=== PATIENT | female | born 1975 | race Caucasian/White ===

== ENCOUNTER 2019-12-11 08:50 | Outpatient (REF) | payer OTHER, SELFPAY ==
--- NOTE | 2019-12-11 | MM_ITS ---
EXAMINATION: MM SCREENING DIGITAL BREAST TOMOSYNTHESIS, BILATERAL CLINICAL INFORMATION: Screening. Asymptomatic. The lifetime risk of breast cancer based on the Tyrer-Cuzick Model is 8%. COMPARISON: Mammography: 12/08/2018, 12/06/2017, 04/27/2016 TECHNIQUE: Digital breast tomosynthesis is performed in both the craniocaudal and mediolateral oblique views along with computer-aided detection (CAD). Synthesized 2D images are generated from the tomosynthesis. Additional exaggerated right CC view is provided. FINDINGS: The breasts are heterogeneously dense, which may obscure small masses (ACR BI-RADS breast composition Category c). There are no significant masses, abnormal calcifications, or other abnormalities. Parenchymal pattern is similar to prior studies. No developing density. No significant changes. IMPRESSION: No mammographic evidence of malignancy. ASSESSMENT: BI-RADS 1: Negative RECOMMENDATION: Routine annual mammography screening. This patient's information was entered into a reminder system with a target due date for their next mammogram.
== END 2019-12-11 08:51 | disposition home or self-care (01) ==
LOC: HO.MAMMO 08:50
PROVIDERS: PCP Internal Medicine; Visit Provider Internal Medicine
DX: Z12.31 Encounter for screening mammogram for malignant neoplasm of breast (principal)
CPT/HCPCS: 77063; 77067; 78014

== ENCOUNTER 2019-12-27 15:01 | Outpatient (REF) | payer OTHER, SELFPAY ==
--- NOTE | 2019-12-27 15:15 | MR_ITS ---
EXAMINATION: MR BRAIN WITHOUT AND WITH CONTRAST CLINICAL INFORMATION: Demyelinating disease. COMPARISON: Head CT 11/22/2019. Brain MRI 08/14/2011. TECHNIQUE: Multiplanar, multisequence imaging of the brain was performed before and after the intravenous administration of 8 mL of Gadavist. FINDINGS: There is redemonstration of mild scattered foci of T2 hyperintensity in the deep and periventricular cerebral white matter with some interval progression compared with 08/14/2011. The corpus callosum appears normal. No signal abnormality is seen within the posterior fossa. No abnormal intracranial enhancement is seen. There is no infarct, mass, or extra-axial fluid collection. No progressive volume loss is seen. The major arterial flow voids are preserved at the skull base. The orbital contents appear normal. The imaged portions of the upper cervical cord appear normal on the sagittal T2/FLAIR sequence. IMPRESSION: Mild scattered foci of T2 hyperintensity in the deep and periventricular cerebral white matter demonstrates some interval progression compared with 08/14/2011. No signal abnormality seen within the corpus callosum or posterior fossa structures. No acute findings. No abnormal intracranial enhancement.
== END 2019-12-27 15:02 | disposition home or self-care (01) ==
LOC: HO.MRI 15:01
PROVIDERS: PCP Internal Medicine; Visit Provider Psychiatry & Neurology Neurology
DX: G37.9 Demyelinating disease of central nervous system, unspecified (principal)
CPT/HCPCS: 70553

== ENCOUNTER 2020-02-14 07:29 | Outpatient (REF) | payer OTHER, SELFPAY ==
[2020-02-14] VITALS (8 sets, daily range): BP systolic 113–150; BP diastolic 62–85; PULSE 70–85; RESP 16–20; TEMP 36.1–36.6; O2SAT 97–100; BMI 29.2
--- NOTE | 2020-02-14 | FL_ITS ---
EXAMINATION: XR LUMBAR PUNCTURE CLINICAL INFORMATION: Demyelinating disease. Failed initial lumbar puncture by Dr. Ma. COMPARISON: None TECHNIQUE: Allowing explaining fluoroscopy-guided lumbar puncture procedure, benefits and risk, a written consent was obtained. Patient was placed prone on fluoroscopy table and are coarse place overlying the L3-L4 disc level. The marked site was cleaned and draped in usual sterile manner. 1% lidocaine was injected puncture site. A 22-gauge short needle was advanced from the skin intrathecally at the L2-L4 disc level. After observing CSF fluid return, patient was quickly placed in the left lateral decubitus view and opening CSF pressure obtained. Subsequently fluid was collected in 4 test tubes. Postprocedure there are stylet was reintroduced and needle withdrawn and complete hemostasis achieved at puncture site. Patient tolerated procedure extremely well. FINDINGS: A single AP image of lumbar spine there is spinal needle positioned at the L3-L4 disc level. The vertebral heights and alignment appears normal. The opening CSF pressure measured 9 cm of water. Approximately 8 mL of clear CSF fluid was collected in 4 test tubes. Fluid was sent to lab as per referring physician's orders. FLUOROSCOPY TIME: 0.5 minutes DOSE AREA PRODUCT: 4.233 uGy-m2 (microgray-meter squared) FL/FL guided lumbar puncture LP IMPRESSION: Successful fluoroscopy-guided lumbar puncture performed.
[2020-02-14 10:59] LABS: Hemoglobin 14.6 g/dl (12.0-16.0); Mean Corpuscular HGB Conc 33.2 g/dl (31.0-35.0); Mean Corpuscular Hemoglobin 28.5 pg (27.0-33.0); Mean Corpuscular Volume 85.9 fL (80-98); Mean Platelet Volume 11.1 fL (9.4-12.3); Platelet Count 295 X10*3/uL (160-400); Red Blood Count 5.12 X10*6/uL (4.20-5.50); Red Cell Distribution Width 13.3 % (11.0-16.0); White Blood Count 11.4 X10*3/uL (4.8-10.8)
[2020-02-14 11:04] LABS: Partial Thromboplastin Time 33.2 SEC (24.1-38.0)
[2020-02-14 13:58] LABS: Oligoclonal Serum Yes
[2020-02-14 14:29] LABS: Glucose CSF 51 mg/dL
[2020-02-14 14:57] LABS: CSF Monos 14 %; Lymphocytes CSF 86 %
[2020-02-14 14:58] LABS: Appearance CSF CLEAR; CSF Tube # 1; Color CSF COLORLESS; Red Blood Cell CSF 0 MM*3; White Blood Cell CSF 5 MM*3
[2020-02-14 15:06] LABS: Appearance CSF CLEAR; CSF Monos 22 %; CSF Tube # 4; Color CSF COLORLESS; Lymphocytes CSF 78 %; Red Blood Cell CSF 2 MM*3; White Blood Cell CSF 3 MM*3
[2020-02-15 02:43] LABS: CSF Appearance Clear, Colorless; CSF Tube # 4
[2020-02-22 07:02] LABS: Albumin 4.2 g/dL (3.5-5.2); Albumin, CSF 23.9 mg/dL (8.0-42.0); IgG 1210 mg/dL (600-1640); IgG Synthesis Rate 0.1 mg/24 h (-9.9-3.3)
== END 2020-02-14 16:05 | disposition home or self-care (01) ==
LOC: HO.MS 07:29
PROVIDERS: PCP Internal Medicine; Visit Provider Psychiatry & Neurology Neurology
PROC: 009U3ZZ Drainage of Spinal Canal, Percutaneous Approach (ICD-10-PCS; CPT 62270; principal; 2020-02-14 08:00)
DX: G37.9 Demyelinating disease of central nervous system, unspecified (principal); I12.9 Hypertensive chronic kidney disease with stage 1 through stage 4 chronic kidney disease, or unspecified chronic kidney disease; N18.9 Chronic kidney disease, unspecified; E03.9 Hypothyroidism, unspecified; F17.210 Nicotine dependence, cigarettes, uncomplicated; Z88.8 Allergy status to other drugs, medicaments and biological substances
CPT/HCPCS: 36415; 62328; 82042; 82945; 83916; 84157; 85027; 85610; 85730; 87015; 87070; 87205; 89051

== ENCOUNTER 2020-02-19 18:25 | Emergency (ER) | payer OTHER, SELFPAY ==
[2020-02-19 18:31] VITALS: BP 152/86; PULSE 83; RESP 16; TEMP 37.1; O2SAT 99; BMI 29.2
== END 2020-02-19 20:17 | disposition left against medical advice (07) ==
LOC: HO.ED 20:19
PROVIDERS: Emergency Provider Internal Medicine; PCP Internal Medicine
DX: R51.9 Headache, unspecified (principal)
CPT/HCPCS: 99282

== ENCOUNTER 2020-12-05 08:56 | Outpatient (REF) | payer OTHER, SELFPAY ==
[2020-12-05 10:40] LABS: Hematocrit 46.6 % (37-47); Hemoglobin 15.5 g/dl (12.0-16.0); Mean Corpuscular HGB Conc 33.3 g/dl (31.0-35.0); Mean Corpuscular Hemoglobin 28.7 pg (27.0-33.0); Mean Corpuscular Volume 86.1 fL (80-98); Mean Platelet Volume 11.4 fL (9.4-12.3); Platelet Count 331 X10*3/uL (160-400); Red Blood Count 5.41 X10*6/uL (4.20-5.50); Red Cell Distribution Width 13.2 % (11.0-16.0); White Blood Count 9.9 X10*3/uL (4.8-10.8)
[2020-12-05 11:24] LABS: HCG Quantitative < 2 mIU/mL; TSH reflex Free T4 2.24 uIU/mL (0.32-4.0)
[2020-12-05 15:41] LABS: CT PCR NOT DETECTED (Not Detect.); NG PCR NOT DETECTED (Not Detect.)
== END 2020-12-05 08:57 | disposition home or self-care (01) ==
LOC: HO.LAB 08:56
PROVIDERS: PCP Internal Medicine; Visit Provider Obstetrics & Gynecology
DX: Z01.411 Encounter for gynecological examination (general) (routine) with abnormal findings (principal); N93.9 Abnormal uterine and vaginal bleeding, unspecified; Z97.5 Presence of (intrauterine) contraceptive device
CPT/HCPCS: 36415; 84443; 84702; 85027; 87491; 87591

== ENCOUNTER 2021-02-21 12:48 | Outpatient (REF) | payer OTHER, SELFPAY ==
--- NOTE | ~2021-02-21 | US_ITS ---
EXAMINATION: US RETROPERITONEAL LIMITED (RENAL ONLY) CLINICAL INFORMATION: IgA nephropathy. CKD. Flank pain. COMPARISON: CT abdomen and pelvis 07/19/2019. Ultrasound abdomen 01/21/2017 and 10/02/2016. MRA abdomen 10/17/2015. TECHNIQUE: Real-time imaging of the kidneys. FINDINGS: RIGHT KIDNEY: 10.5 x 3.7 x 4.8 cm (SAG x AP x TRV). The kidney is normal in size, contour, and echogenicity. Renal cortical thickness is normal. No calculi or focal parenchymal lesions. No hydronephrosis. LEFT KIDNEY: 10.3 x 5.2 x 4.6 cm (SAG x AP x TRV). The kidney is normal in size, contour, and echogenicity. Renal cortical thickness is normal. No calculi or focal parenchymal lesions. No hydronephrosis. US/US renal BI IMPRESSION: Unremarkable renal ultrasound
--- NOTE | ~2021-02-21 | US_ITS ---
EXAMINATION: US PELVIS CLINICAL INFORMATION: Abnormal uterine vaginal bleeding COMPARISON: None TECHNIQUE: Ultrasound of the pelvis is performed using both transabdominal and transvaginal transducers along with Doppler. Transvaginal imaging is performed due to inadequate visualization transabdominally. FINDINGS: Uterus: The uterus is anteverted and measures 7.9 x 3.4 x 4.7 cm. The double wall endometrial thickness is 38 mm. There is an IUD within the endometrial canal. The uterus is smooth in contour and has normal myometrial echogenicity. No visible fibroid. Adnexa: There is normal color flow to the adnexa. There is no ovarian torsion. There is no pelvic ascites or fluid collection. Right ovary was not visualized. Left ovary measures 3.6 x 0.9 x 1.2 cm. There is a 1.0 x 0.9 x 1.1 cm follicle in the left ovary. US/US pelvic and transvaginal IMPRESSION: IUD appropriately positioned. The right ovary was not visualized on this exam.
== END 2021-02-21 12:49 | disposition home or self-care (01) ==
LOC: HO.HMGCX 12:48
PROVIDERS: PCP Physician Assistant; Visit Provider Physician Assistant
DX: R10.9 Unspecified abdominal pain (principal); N93.9 Abnormal uterine and vaginal bleeding, unspecified
CPT/HCPCS: 76775; 76830; 76856

== ENCOUNTER 2021-03-21 00:03 | Emergency (ER) | payer OTHER, SELFPAY ==
[2021-03-21 00:12] VITALS: BP 163/99; PULSE 76; RESP 16; TEMP 36.8; O2SAT 98; BMI 25.7
[2021-03-21 01:20] LABS: Basophils Percent Auto 0.4 % (0-2); Eosinophils Absolute Auto 0.2 X10*3/uL (0.0-0.4); Eosinophils Percent Auto 1.3 % (0-4); Hematocrit 43.8 % (37.0-47.0); Hemoglobin 14.4 g/dl (12.0-16.0); Imm Gran Abs Auto 0.02 X10*3/uL (0.00-0.03); Imm Gran Pct Auto 0.2 % (0.0-0.4); Lymphocytes Absolute Auto 3.4 X10*3/uL (1.2-4.9); Lymphocytes Percent Auto 30.1 % (20-40); MANUAL DIFF FLAG NO; Mean Corpuscular HGB Conc 32.9 g/dl (31.0-35.0); Mean Corpuscular Hemoglobin 28.1 pg (27.0-33.0); Mean Corpuscular Volume 85.4 fL (80.0-98.0); Mean Platelet Volume 11.2 fL (9.4-12.3); Monocytes Absolute Auto 0.7 X10*3/uL (0.1-1.2); Monocytes Percent Auto 5.7 % (2-11); Neutrophils Absolute Auto 7.1 x10*3/uL (2.0-8.3); Neutrophils Percent Auto 62.3 % (45-73); Platelet Count 312 X10*3/uL (160-400); Red Blood Count 5.13 X10*6/uL (4.20-5.50); Red Cell Distribution Width 12.9 % (11.0-16.0); White Blood Count 11.3 X10*3/uL (4.8-10.8)
[2021-03-21 01:32] LABS: COVID-19 Test Negative (Negative); IDNOW Serial# 9DD0AD1C
[2021-03-21 01:37] LABS: Alanine Aminotransferase 18 U/L (0-31); Albumin Level 4.3 g/dL (3.5-5.0); Alkaline Phosphatase 72 U/L (39-117); Anion Gap 12 (12-20); Aspartate Amino Transferase 16 U/L (5-31); Bilirubin Total 0.7 mg/dL (0.0-1.0); Blood Urea Nitrogen 20 mg/dL (9-16); Calcium 9.6 mg/dL (8.4-10.2); Carbon Dioxide 24 mmol/L (22-29); Chloride 107 mmol/L (96-108); Creatinine Clr Calc Pharmacy 63.3; Estimated Glomerular Filt Rate 57; Glucose Random 96 mg/dL (60-115); Potassium 3.5 mmol/L (3.3-5.1); Sodium 139 mmol/L (135-145); Total Protein 7.4 g/dL (6.5-8.0)
--- NOTE | 2021-03-21 02:11 | PC.NURSE ---
ua collected and sent
[2021-03-21 02:16] LABS: Appearance Urine CLEAR; Color Urine YELLOW; Glucose Urine UA NEG (NEG); Leukocyte Esterase Urine NEG (NEG); Nitrite Urine NEG (NEG); Specific Gravity - Urine >= 1.030 (1.005-1.025); UACC Culture Trigger NO; Urine Blood 2+ (NEG); Urine Ketones 5 MG/DL (NEG); Urine Protein 2+ MG/DL (NEG-TRACE)
[2021-03-21 02:24] LABS: Bacteria Urine 2+ /LPF; Mucus Urine 2+ /LPF; Squamous Epithelial Cell Urine 2+ /LPF
--- NOTE | 2021-03-21 06:13 | ED_ITS ---
HPI - General Adult General Chief complaint: General Medical Stated complaint: High Blood Pressure Time Seen by Provider: 03/21/21 06:13 Source: patient Mode of arrival: ambulatory Limitations: no limitations History of Present Illness HPI narrative: patient was having headache, and back pain with some spotting. Her blood pressure has been running 171/87. patient is having personal stress. Onset (ago): day(s) Severity: mild Pain Consistency: constant Relieving factors: none Exacerbating factors: none Associated symptoms: denies other symptoms Related Data Previous Rx's Medication Instructions Recorded lorazepam 0.5 mg tablet 0.5 mg PO DAILY PRN 30 Days #15 tab 01/20/21 albuterol sulfate 90 mcg/actuation 1 inh INHALATION QID 30 Days #8.5 g 02/06/21 aerosol inhaler amlodipine 5 mg tablet 5 mg PO DAILY 30 Days #30 tab 02/06/21 nicotine 14 mg/24 hr daily 1 patch TRANSDERMAL DAILY 14 Days 02/06/21 transdermal patch #14 ea nicotine 21 mg/24 hr daily 1 patch TRANSDERMAL DAILY 14 Days 02/06/21 transdermal patch #14 ea levothyroxine 150 mcg tablet 150 mcg PO DAILY #90 tab 02/17/21 tramadol 50 mg tablet 50 mg PO BID 30 Days #14 tab 02/26/21 Allergies Allergy/AdvReac Type Severity Reaction Status Date / Time lisinopril [LISINOPRIL] Allergy Mild COUGHING, Verified 02/06/21 11:07 cough, COUGH shellfish derived Allergy Unknown UNKNOWN Verified 02/06/21 11:07 [SHELLFISH DERIVED] REACTION-TOLD BY PARENT Review of Systems Constitutional: Constitutional: Reports no additional constitutional complaints Eyes: Eyes: Reports no additional eye complaints ENT: Denies dizziness Cardiovascular: Cardiovascular: Reports no additional cardiovascular complaints Respiratory: Respiratory: Reports as per HPI Gastrointestinal: Gastrointestinal: Reports no additional gastrointestinal complaints Genitourinary: Genitourinary: Reports no additional female genitourinary complaints Musculoskeletal: Musculoskeletal: Reports no additional musculoskeletal complaints Integumentary/Breasts: Skin/Breast: Denies rash Neurologic: Reports system reviewed and no additional complaints, except as documented, Denies dizziness and Denies Sensory deficit (Neuro) Psychiatric: Psychiatric: Denies anxiety PMFSH Past Medical History Medical History Asthma delivery delivered CKD (chronic kidney disease) Fatty liver GERD (gastroesophageal reflux disease) HTN (hypertension) Hypothyroid IgA nephropathy Migraine Multiple sclerosis Obesity (BMI 30-39.9) Tobacco abuse Vitamin D deficiency Surgical History Cervical disc disease Tubal ligation status Family History Family History Mother Mental health disorder Father Prostate cancer Heart attack, Onset Age: 80 Social History Social History Housing: Apartment Alcohol intake: current Alcohol intake frequency: holidays/special occasions only Patient Tobacco Use Status: Current everyday Tobacco user Cigarettes Per Day: 10 e-Cigarette/Vaping Use: Never Used Second Hand Smoke Exposure: No Advance Directives: No service: No Current occupational status: employed Physical Exam Vital Signs: Vital Signs: Last Vital Signs Temp 98.2 F 03/21/21 00:12 Pulse 76 03/21/21 00:12 Resp 16 03/21/21 00:12 BP 163/99 H 03/21/21 00:12 Pulse Ox 98 03/21/21 00:12 BMI result Body Mass Index 25.7 Const: General: healthy appearing Nutritional Appearance: average body habitus Orientation/consciousness: oriented to person and patient oriented x3 Limitations: no limitations HENMT: Head: Yes normal to inspection Ears: external ears normal General nose exam: Normal external nose present Mouth: Normal oral and palatal mucosa present and oropharynx normal Throat: Yes posterior oropharynx normal Eyes: General: appearance normal, both eyes and all related structures Neck: Other: supple Neck: Yes normal visual inspection Chest: Chest palpation & inspection: normal inspection of the chest Resp: Auscultation: clear to auscultation bilaterally Cardio: Jugular venous distension: no JVD Rate: regular rate Rhythm: regular rhythm Heart sounds: S1 normal heart sound present and S2 normal heart sound present GI: Inspection: Yes normal to inspection Palpation (GI): Soft to palpation, nontender and No hepatosplenomegaly present Auscultation: normal bowel sounds : General: Yes no CVA tenderness Back/Spine/Pelvis: Back: no CVA tenderness Skin: General skin exam: no rashes or lesions noted Neuro: General: oriented to person and patient oriented x3 Cranial nerves: Yes CN's II-XII intact bilaterally Motor exam (neuro): 5/5 motor strength present throughout Sensory Exam: No Sensory deficit (Neuro) Extrem: General: Yes normal to inspection Psych: Appearance: grossly normal Course Reevaluation(s) Reevaluation #1: blood pressure running high, no evidence of renal disease, no edema, will have patient double her amlodipine and follow up with her PMD Time: 06:23 Medical Decision Making Lab Data Result diagrams: 03/21/21 01:14 03/21/21 01:14 Labs: Lab Results 03/21/21 03/21/21 03/21/21 Range/Units 01:14 01:14 01:15 WBC 11.3 H (4.8-10.8) X10*3/uL RBC 5.13 (4.20-5.50) X10*6/uL Hgb 14.4 (12.0-16.0) g/dl Hct 43.8 (37.0-47.0) % MCV 85.4 (80.0-98.0) fL MCH 28.1 (27.0-33.0) pg MCHC 32.9 (31.0-35.0) g/dl RDW 12.9 (11.0-16.0) % Plt Count 312 (160-400) X10*3/uL MPV 11.2 (9.4-12.3) fL Immature Gran % (Auto) 0.2 (0.0-0.4) % Neut % (Auto) 62.3 (45-73) % Lymph % (Auto) 30.1 (20-40) % [place] % (Auto) 5.7 (2-11) % Eos % (Auto) 1.3 (0-4) % Baso % (Auto) 0.4 (0-2) % Lymph # (Auto) 3.4 (1.2-4.9) X10*3/uL [place] # (Auto) 0.7 (0.1-1.2) X10*3/uL Eos # (Auto) 0.2 (0.0-0.4) X10*3/uL Baso # (Auto) 0.0 (0.0-0.2) X10*3/uL Abs Immat Gran (auto) 0.02 (0.00-0.03) X10*3/uL Absolute Neuts (auto) 7.1 (2.0-8.3) x10*3/uL Absolute Nucleated RBC 0.000 (0.0-0.012) X10*3/uL Nucleated RBC % (auto) 0.0 (0.0-0.2) /100WBC Sodium 139 (135-145) mmol/L Potassium 3.5 (3.3-5.1) mmol/L Chloride 107 (96-108) mmol/L Carbon Dioxide 24 (22-29) mmol/L Anion Gap 12 (12-20) BUN 20 H (9-16) mg/dL Creatinine 1.04 (0.5-1.4) mg/dL Estim Creat Clear Calc 63.3 Estimated GFR 57 Random Glucose 96 (60-115) mg/dL Calcium 9.6 (8.4-10.2) mg/dL Total Bilirubin 0.7 (0.0-1.0) mg/dL AST 16 (5-31) U/L ALT 18 (0-31) U/L Alkaline Phosphatase 72 (39-117) U/L Total Protein 7.4 (6.5-8.0) g/dL Albumin 4.3 (3.5-5.0) g/dL Urine Color Urine Appearance Urine pH (5.0-8.0) Ur Specific [place] (1.005-1.025) Urine Protein (NEG-TRACE) MG/DL Urine Glucose (UA) (NEG) MG/DL Urine Ketones (NEG) MG/DL Urine Blood (NEG) Urine Nitrite (NEG) Ur Leukocyte Esterase (NEG) Urine RBC (0) /HPF Urine WBC (0-4) /HPF Ur Squamous Epith Cells /LPF Urine Bacteria /LPF Urine Mucus /LPF COVID-19 (ADELA) Negative (Negative) COVID-19 Clin Com See Note 03/21/21 Range/Units 02:10 WBC (4.8-10.8) X10*3/uL RBC (4.20-5.50) X10*6/uL Hgb (12.0-16.0) g/dl Hct (37.0-47.0) % MCV (80.0-98.0) fL MCH (27.0-33.0) pg MCHC (31.0-35.0) g/dl RDW (11.0-16.0) % Plt Count (160-400) X10*3/uL MPV (9.4-12.3) fL Immature Gran % (Auto) (0.0-0.4) % Neut % (Auto) (45-73) % Lymph % (Auto) (20-40) % [place] % (Auto) (2-11) % Eos % (Auto) (0-4) % Baso % (Auto) (0-2) % Lymph # (Auto) (1.2-4.9) X10*3/uL [place] # (Auto) (0.1-1.2) X10*3/uL Eos # (Auto) (0.0-0.4) X10*3/uL Baso # (Auto) (0.0-0.2) X10*3/uL Abs Immat Gran (auto) (0.00-0.03) X10*3/uL Absolute Neuts (auto) (2.0-8.3) x10*3/uL Absolute Nucleated RBC (0.0-0.012) X10*3/uL Nucleated RBC % (auto) (0.0-0.2) /100WBC Sodium (135-145) mmol/L Potassium (3.3-5.1) mmol/L Chloride (96-108) mmol/L Carbon Dioxide (22-29) mmol/L Anion Gap (12-20) BUN (9-16) mg/dL Creatinine (0.5-1.4) mg/dL Estim Creat Clear Calc Estimated GFR Random Glucose (60-115) mg/dL Calcium (8.4-10.2) mg/dL Total Bilirubin (0.0-1.0) mg/dL AST (5-31) U/L ALT (0-31) U/L Alkaline Phosphatase (39-117) U/L Total Protein (6.5-8.0) g/dL Albumin (3.5-5.0) g/dL Urine Color YELLOW Urine Appearance CLEAR Urine pH 6.0 (5.0-8.0) Ur Specific [place] >= 1.030 H (1.005-1.025) Urine Protein 2+ H (NEG-TRACE) MG/DL Urine Glucose (UA) NEG (NEG) MG/DL Urine Ketones 5 (NEG) MG/DL Urine Blood 2+ H (NEG) Urine Nitrite NEG (NEG) Ur Leukocyte Esterase NEG (NEG) Urine RBC 1-4 (0) /HPF Urine WBC 1-4 (0-4) /HPF Ur Squamous Epith Cells 2+ /LPF Urine Bacteria 2+ /LPF Urine Mucus 2+ /LPF COVID-19 ([facility]A) (Negative) COVID-19 Clin Com Discharge Plan Discharge Clinical Impression: HTN (hypertension) Qualifiers: Hypertension type: primary hypertension Qualified Code(s): I10 - Essential (primary) hypertension Patient Disposition: Home, Self-Care Instructions: Chronic Hypertension (ED) Additional Instructions: increase amlodipine to 10mg daily Prescriptions: No Action lorazepam 0.5 mg tablet 0.5 mg PO DAILY PRN (Reason: anxiety) 30 Days Qty: 15 RF: 2 levothyroxine 150 mcg tablet 150 mcg PO DAILY Qty: 90 RF: 2 tramadol 50 mg tablet 50 mg PO BID 30 Days Qty: 14 RF: 3 amlodipine 5 mg tablet 5 mg PO DAILY 30 Days Qty: 30 RF: 3 albuterol sulfate 90 mcg/actuation HFA aerosol inhaler 1 inh inhalation QID 30 Days Qty: 8.5 RF: 2 nicotine 21 mg/24 hr patch 24 hour 1 patch transdermal DAILY 14 Days Qty: 14 RF: 0 nicotine 14 mg/24 hr patch 24 hour 1 patch transdermal DAILY 14 Days Qty: 14 RF: 0 Referrals: Donta Bellamy PA-C [Primary Care Provider] - 5 days
== END 2021-03-21 06:44 | disposition home or self-care (01) ==
PROVIDERS: Emergency Provider Emergency Medicine; PCP Physician Assistant
DX: R51.9 Headache, unspecified (principal); I10 Essential (primary) hypertension; M54.50 Low back pain, unspecified; F17.210 Nicotine dependence, cigarettes, uncomplicated; Z20.822 Contact with and (suspected) exposure to COVID-19; Z71.6 Tobacco abuse counseling; Z79.899 Other long term (current) drug therapy
CPT/HCPCS: 36415; 80053; 81001; 85025; 87635; 99283

== ENCOUNTER 2021-08-14 15:58 | Outpatient (REF) | payer OTHER, SELFPAY ==
[2021-08-14 16:28] LABS: Hematocrit 41.1 % (37.0-47.0); Hemoglobin 13.7 g/dl (12.0-16.0); Mean Corpuscular HGB Conc 33.3 g/dl (31.0-35.0); Mean Corpuscular Hemoglobin 28.8 pg (27.0-33.0); Mean Corpuscular Volume 86.3 fL (80.0-98.0); Mean Platelet Volume 11.2 fL (9.4-12.3); Platelet Count 296 X10*3/uL (160-400); Red Blood Count 4.76 X10*6/uL (4.20-5.50); Red Cell Distribution Width 12.7 % (11.0-16.0); White Blood Count 12.9 X10*3/uL (4.8-10.8)
[2021-08-14 17:12] LABS: TSH reflex Free T4 1.01 uIU/mL (0.32-4.0)
[2021-08-14 17:22] LABS: Folate 5.7 ng/mL (> or = 4.0); Vitamin B12 801 pg/mL (200-900)
== END 2021-08-14 15:59 | disposition home or self-care (01) ==
LOC: HO.LAB 15:58
PROVIDERS: PCP Physician Assistant; Visit Provider Nurse Practitioner Family
DX: R53.83 Other fatigue (principal)
CPT/HCPCS: 36415; 82306; 82607; 82746; 84443; 85027

== ENCOUNTER 2022-01-01 08:40 | Outpatient (REF) | payer SELFPAY ==
[2022-01-01 11:12] LABS: MANUAL DIFF FLAG NO
[2022-01-01 11:18] LABS: Basophils Absolute Auto 0.1 X10*3/uL (0.0-0.2); Basophils Percent Auto 0.4 % (0-2); Eosinophils Absolute Auto 0.1 X10*3/uL (0.0-0.4); Eosinophils Percent Auto 0.9 % (0-4); Hematocrit 44.1 % (37.0-47.0); Hemoglobin 14.6 g/dl (12.0-16.0); Imm Gran Abs Auto 0.08 X10*3/uL (0.00-0.03); Imm Gran Pct Auto 0.5 % (0.0-0.4); Lymphocytes Percent Auto 12.5 % (20-40); Mean Corpuscular HGB Conc 33.1 g/dl (31.0-35.0); Mean Corpuscular Hemoglobin 28.3 pg (27.0-33.0); Mean Corpuscular Volume 85.5 fL (80.0-98.0); Mean Platelet Volume 12.4 fL (9.4-12.3); Monocytes Absolute Auto 1.3 X10*3/uL (0.1-1.2); Monocytes Percent Auto 7.8 % (2-11); Neutrophils Absolute Auto 12.6 x10*3/uL (2.0-8.3); Neutrophils Percent Auto 77.9 % (45-73); Platelet Count 259 X10*3/uL (160-400); Red Blood Count 5.16 X10*6/uL (4.20-5.50); Red Cell Distribution Width 13.5 % (11.0-16.0); White Blood Count 16.2 X10*3/uL (4.8-10.8)
[2022-01-01 11:22] LABS: Appearance Urine Cloudy; Color Urine Yellow; Glucose Urine UA Negative (Negative); Leukocyte Esterase Urine Small (1+) (Negative); Nitrite Urine Negative (Negative); Specific Gravity - Urine 1.015 (1.005-1.025); UMIC TRIGGER UACC YES; Urine Blood Large (3+) (Negative); Urine Ketones Negative (Negative); Urine Protein 300 (3+) mg/dL (Neg-Trace)
[2022-01-01 11:33] LABS: Bacteria Urine 1+ (None Seen); Hyaline Casts Urine 0-2 /LPF (0-2); RBC Urine >20 /HPF (0-2); UACC Culture Trigger YES; WBC Urine 21-50 /HPF (0-5)
[2022-01-01 11:48] LABS: Alanine Aminotransferase 86 U/L (0-31); Albumin Level 4.4 g/dL (3.5-5.0); Alkaline Phosphatase 96 U/L (39-117); Anion Gap 18 (12-20); Aspartate Amino Transferase 38 U/L (5-31); Bilirubin Total 0.7 mg/dL (0.0-1.0); Blood Urea Nitrogen 15 mg/dL (9-16); Calcium 9.5 mg/dL (8.4-10.2); Carbon Dioxide 21 mmol/L (22-29); Chloride 103 mmol/L (96-108); Estimated Glomerular Filt Rate 52; Glucose Random 93 mg/dL (60-115); Potassium 4.4 mmol/L (3.3-5.1); Sodium 138 mmol/L (135-145)
== END 2022-01-01 08:41 | disposition home or self-care (01) ==
LOC: HO.HMGCLDS 08:40
PROVIDERS: PCP Physician Assistant; Visit Provider Internal Medicine
DX: J02.9 Acute pharyngitis, unspecified (principal); M54.9 Dorsalgia, unspecified; N18.9 Chronic kidney disease, unspecified
CPT/HCPCS: 36415; 80053; 81001; 85025; 87086

== ENCOUNTER 2022-01-10 10:25 | Outpatient (REF) | payer OTHER, SELFPAY ==
[2022-01-10 11:19] LABS: Hematocrit 48.6 % (37.0-47.0); Hemoglobin 15.6 g/dl (12.0-16.0); Mean Corpuscular HGB Conc 32.1 g/dl (31.0-35.0); Mean Corpuscular Hemoglobin 27.7 pg (27.0-33.0); Mean Corpuscular Volume 86.2 fL (80.0-98.0); Platelet Count 375 X10*3/uL (160-400); Red Blood Count 5.64 X10*6/uL (4.20-5.50); Red Cell Distribution Width 13.2 % (11.0-16.0); White Blood Count 12.3 X10*3/uL (4.8-10.8)
[2022-01-10 11:37] LABS: Appearance Urine Clear; Color Urine Yellow; Glucose Urine UA Negative (Negative); Leukocyte Esterase Urine Negative (Negative); Nitrite Urine Negative (Negative); PH 7.5 (5.0-9.0); UMIC TRIGGER UACC YES; Urine Blood Trace (Negative); Urine Ketones Negative (Negative); Urine Protein 100 (2+) mg/dL (Neg-Trace)
[2022-01-10 11:41] LABS: Bacteria Urine None Seen (None Seen); Hyaline Casts Urine 0-2 /LPF (0-2); WBC Urine 0-5 /HPF (0-5)
[2022-01-10 12:29] LABS: Alanine Aminotransferase 35 U/L (0-31); Albumin Level 4.4 g/dL (3.5-5.0); Alkaline Phosphatase 94 U/L (39-117); Aspartate Amino Transferase 21 U/L (5-31); Bilirubin Direct < 0.2 mg/dL (0.0-0.5); Bilirubin Total 0.3 mg/dL (0.0-1.0); Total Protein 7.7 g/dL (6.5-8.0)
== END 2022-01-10 10:26 | disposition home or self-care (01) ==
LOC: HO.HMGCLDS 10:25
PROVIDERS: Absent Provider Internal Medicine; PCP Physician Assistant; Visit Provider Physician Assistant
DX: D72.829 Elevated white blood cell count, unspecified (principal); R79.89 Other specified abnormal findings of blood chemistry
CPT/HCPCS: 36415; 80076; 81001; 85027

== ENCOUNTER 2022-02-27 12:46 | Outpatient (REF) | payer OTHER, SELFPAY ==
--- NOTE | ~2022-02-27 | MM_ITS ---
EXAMINATION: MM SCREENING DIGITAL BREAST TOMOSYNTHESIS, BILATERAL CLINICAL INFORMATION: Screening. Asymptomatic. The lifetime risk of breast cancer based on the Tyrer-Cuzick Model is 7.8%. COMPARISON: Mammography: December 11, 2019 and studies dating back to April 27, 2016 TECHNIQUE: Digital breast tomosynthesis is performed in both the craniocaudal and mediolateral oblique views along with computer-aided detection (CAD). Synthesized 2D images are generated from the tomosynthesis. FINDINGS: The breasts are heterogeneously dense, which may obscure small masses (ACR BI-RADS breast composition Category c). There are no significant masses, abnormal calcifications, or other abnormalities. MM/MM tomosynthesis screening BI IMPRESSION: No significant changes from prior exam. ASSESSMENT: BI-RADS 1: Negative RECOMMENDATION: Routine annual mammography screening. This patient's information was entered into a reminder system with a target due date for their next mammogram.
== END 2022-02-27 12:47 | disposition home or self-care (01) ==
LOC: HO.MAMMO 12:46
PROVIDERS: PCP Physician Assistant; Visit Provider Physician Assistant
DX: Z12.31 Encounter for screening mammogram for malignant neoplasm of breast (principal)
CPT/HCPCS: 77063; 77067

== ENCOUNTER → 2022-04-06 12:39 | Outpatient (BNVA) | payer OTHER, SELFPAY | PROVIDERS: PCP Physician Assistant; Visit Provider Psychiatry & Neurology Neurology | DX: M54.2 Cervicalgia (principal) ==

== ENCOUNTER 2022-04-24 07:45 | Outpatient (REF) | payer OTHER, SELFPAY ==
--- NOTE | ~2022-04-24 | MR_ITS ---
EXAMINATION: MR CERVICAL SPINE WITHOUT CONTRAST CLINICAL INFORMATION: Cervicalgia. The patient states pain and tingling in both hands. COMPARISON: Plain films the cervical spine 07/19/2017. Remote MRI scan of the cervical spine 08/26/2011. TECHNIQUE: MRI of the cervical spine was obtained using routine sequences without contrast. FINDINGS: VERTEBRAL BODIES AND PARASPINAL SOFT TISSUES: There is slight reversal of the cervical lordosis which is nonspecific. There are sequelae of ACDF changes at C5, C6 and C7 with compared to the prior MRI scan, but demonstrated on the more recent plain films. The hardware causes marked susceptibility artifact. Intervertebral disc heights are maintained. The vertebral bodies have normal height and contour no fractures are demonstrated. Overall, marrow signal is homogenous. The regional soft tissues are unremarkable. CERVICOMEDULLARY JUNCTION AND VISUALIZED POSTERIOR FOSSA: The craniocervical and posterior fossa structures are normal. Accounting for artifact, spinal cord signal appears normal. SPINAL LEVELS: C2-C3: The facet joints appear normal. Posterior disc contour is normal, and there is no central stenosis or cord compression. There are uncovertebral osteophytes. There is mild right foraminal narrowing. C3-C4: The facet joints appear normal. There is a broad-based posterior disc protrusion which effaces CSF around the cord and there is mild central stenosis. There is no cord compression. There are uncovertebral osteophytes and there is moderate right and mild left foraminal narrowing. C4-C5: The facet joints appear normal bilaterally. There is a broad-based posterior disc protrusion with mild subligamentous extrusion behind the body of C5 the left of midline. There is effacement of CSF around the cord, and there is moderate to severe central stenosis. There are uncovertebral osteophytes and there is severe right and moderate to severe left foraminal narrowing. C5-C6: The facet joints appear normal. There is a small posterior osteophytic ridge to the left of midline with some effacement of CSF ventral to the cord, but there is no cord compression or central stenosis. The neural foramina are patent bilaterally. C6-C7: There is mild bilateral facet arthropathy. Posterior disc contour is normal and there is no cord compression or central stenosis. There are uncovertebral osteophytes and is moderate left foraminal narrowing. C7-T1: The facet joints appear normal bilaterally. Posterior disc contour is normal. There is no spinal cord compression or central stenosis. The neural foramina are patent bilaterally. MR/MR cervical spine wo con IMPRESSION: 1. There are sequelae of ACDF at C5, C6 and C7. The hardware causes susceptibility artifact. 2. At C4-C5 there is a broad-based posterior disc protrusion/extrusion with effacement of CSF around the cord and there is moderate to severe central stenosis. There is severe right and moderate to severe left foraminal narrowing. 3. At C3-C4 there is a broad-based posterior disc protrusion with mild central stenosis. There is moderate right and mild left foraminal narrowing. 4. At C6-C7 there is facet arthropathy and there are uncovertebral osteophytes. There is no cord compression or central stenosis. There is moderate left foraminal narrowing.
== END 2022-04-24 07:46 | disposition home or self-care (01) ==
LOC: HO.MRI 07:45
PROVIDERS: Visit Provider Psychiatry & Neurology Neurology
DX: M50.90 Cervical disc disorder, unspecified, unspecified cervical region (principal); R20.0 Anesthesia of skin; R20.2 Paresthesia of skin
CPT/HCPCS: 72141

== ENCOUNTER → 2022-04-24 08:43 | Outpatient (REF) | payer OTHER, SELFPAY ==
[2022-04-24 09:13] LABS: Hematocrit 44.9 % (37.0-47.0); Hemoglobin 15.3 g/dl (12.0-16.0); Mean Corpuscular HGB Conc 34.1 g/dl (31.0-35.0); Mean Platelet Volume 10.9 fL (9.4-12.3); Platelet Count 302 X10*3/uL (160-400); Red Blood Count 5.28 X10*6/uL (4.20-5.50); Red Cell Distribution Width 13.2 % (11.0-16.0); White Blood Count 10.2 X10*3/uL (4.8-10.8)
[2022-04-24 09:35] LABS: Appearance Urine Cloudy; Color Urine Yellow; Glucose Urine UA Negative (Negative); Leukocyte Esterase Urine Negative (Negative); Nitrite Urine Negative (Negative); UMIC TRIGGER UACC YES; Urine Blood Small (1+) (Negative); Urine Ketones Negative (Negative); Urine Protein 300 (3+) mg/dL (Neg-Trace)
[2022-04-24 09:44] LABS: Bacteria Urine None Seen (None Seen); Hyaline Casts Urine 0-2 /LPF (0-2); WBC Urine 0-5 /HPF (0-5)
[2022-04-24 09:55] LABS: Alanine Aminotransferase 26 U/L (0-31); Albumin Level 4.5 g/dL (3.5-5.0); Alkaline Phosphatase 81 U/L (39-117); Anion Gap 14 (12-20); Aspartate Amino Transferase 19 U/L (5-31); Bilirubin Total 0.5 mg/dL (0.0-1.0); Blood Urea Nitrogen 15 mg/dL (9-16); Calcium 9.6 mg/dL (8.4-10.2); Carbon Dioxide 21 mmol/L (22-29); Chloride 108 mmol/L (96-108); Estimated Glomerular Filt Rate 59; Glucose Fasting 95 mg/dL (60-99); Potassium 4.2 mmol/L (3.3-5.1); Sodium 139 mmol/L (135-145); Total Protein 7.3 g/dL (6.5-8.0)
[2022-04-24 10:13] LABS: TSH reflex Free T4 0.91 uIU/mL (0.32-4.0)
[2022-04-24 10:22] LABS: Creatinine Urine 153.37 mg/dL
[2022-04-24 10:45] LABS: Microalbum/Creatinine Ratio Ur 899.1 ug/mg cr
== END ==
LOC: HO.SL 08:43
PROVIDERS: Internal Medicine; Absent Provider Physician Assistant; PCP Physician Assistant; Visit Provider Psychiatry & Neurology Neurology
DX: G47.10 Hypersomnia, unspecified (principal); R06.83 Snoring; I10 Essential (primary) hypertension
CPT/HCPCS: 36415; 80053; 81001; 82043; 84443; 85027; 95806

== ENCOUNTER 2022-04-27 15:16 | Outpatient (REF) | payer OTHER, SELFPAY | END 2022-04-27 15:17 | disposition home or self-care (01) | LOC: HO.LAB 15:16 | PROVIDERS: PCP Physician Assistant; Visit Provider Internal Medicine Hypertension Specialist | DX: Z13.89 Encounter for screening for other disorder (principal) ==

== ENCOUNTER 2022-05-01 13:21 | Outpatient (REF) | payer OTHER, SELFPAY ==
--- NOTE | ~2022-05-01 | US_ITS ---
EXAMINATION: US RETROPERITONEAL LIMITED (RENAL ONLY) CLINICAL INFORMATION: Proteinuria. COMPARISON: Renal ultrasound 02/21/2021. CT abdomen and pelvis 07/19/2019. Ultrasound abdomen complete 01/21/2017. MRA abdomen 10/17/2015. TECHNIQUE: Real-time imaging of the kidneys. FINDINGS: RIGHT KIDNEY: 11.4 x 4.4 x 4.0 cm (SAG x AP x TRV). The kidney is normal in size, contour, and echogenicity. Renal cortical thickness is normal. No calculi or focal parenchymal lesions. No hydronephrosis. LEFT KIDNEY: 10.6 x 5.2 x 4.4 cm (SAG x AP x TRV). The kidney is normal in size, contour, and echogenicity. Renal cortical thickness is normal. No calculi or focal parenchymal lesions. No hydronephrosis. US/US renal BI IMPRESSION: Normal-appearing kidneys.
== END 2022-05-01 13:22 | disposition home or self-care (01) ==
LOC: HO.US 13:21
PROVIDERS: Visit Provider Internal Medicine Hypertension Specialist
DX: R80.9 Proteinuria, unspecified (principal)
CPT/HCPCS: 76775

== ENCOUNTER 2022-05-09 10:06 | Outpatient (REF) | payer OTHER, SELFPAY ==
[2022-05-09 11:35] LABS: Creatinine, mg/dL 112.89
[2022-05-09 12:11] LABS: Creatinine, 24Hr Urine 1.2 G/Day (1.0-2.0); Total Volume 24 Hour Urine 1050 mL
[2022-05-09 12:12] LABS: Protein 24 Hr Urine 861 mg/Day (<150); Protein mg/dL 82 mg/dL
== END 2022-05-09 10:07 | disposition home or self-care (01) ==
LOC: HO.LNP 10:06
PROVIDERS: Visit Provider Internal Medicine Hypertension Specialist
DX: R80.9 Proteinuria, unspecified (principal)
CPT/HCPCS: 84156

== ENCOUNTER → 2022-05-19 12:37 | Outpatient (BNVA) | payer OTHER, SELFPAY | PROVIDERS: PCP Physician Assistant; Visit Provider Psychiatry & Neurology Neurology | DX: M54.9 Dorsalgia, unspecified (principal); R20.0 Anesthesia of skin; R20.2 Paresthesia of skin; M50.90 Cervical disc disorder, unspecified, unspecified cervical region; G47.10 Hypersomnia, unspecified; R06.83 Snoring ==

== ENCOUNTER 2022-06-18 11:24 | Outpatient (REF) | payer OTHER, SELFPAY ==
--- NOTE | 2022-06-18 08:00 | EMG_ITS ---
Bilateral median and ulnar motor and sensory studies were performed. Bilateral radial sensory studies were performed and paraspinal muscles were tested with a needle. 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 MD MANNY Crandall/ALEXANDRA / [id number]
== END 2022-06-18 11:25 | disposition home or self-care (01) ==
LOC: HO.NEURO 11:24
PROVIDERS: PCP Physician Assistant; Visit Provider Psychiatry & Neurology Neurology
DX: R20.0 Anesthesia of skin (principal); R20.2 Paresthesia of skin
CPT/HCPCS: 95886; 95911

== ENCOUNTER 2022-07-06 17:15 | Emergency (ER) | payer OTHER, SELFPAY ==
--- NOTE | ~2022-07-06 | CT_ITS ---
EXAMINATION: CT HEAD WITHOUT CONTRAST CLINICAL INFORMATION: Headache. COMPARISON: MR brain 12/27/2019. CT head 11/22/2019. TECHNIQUE: Contiguous axial imaging was performed from the skull base to vertex without intravenous administration of contrast. This CT examination was performed using dose optimization techniques as appropriate, variously including the following: *Automated exposure control *Adjustment of mA and/or kV according to patient size (this includes techniques or standardized protocols for targeted exams where dose is matched to indication/reason for exam; i.e. extremities or head) *Use of iterative reconstruction technique DLP: 588 mGy-cm FINDINGS: There is no evidence of acute intracranial hemorrhage or edematous territorial infarction. Scattered hypoattenuation in the periventricular and deep white matter are consistent with moderate microangiopathy. Chronic focal hypodensity in the left frontal lobe (2:39), stable compared to 11/22/2019. Christie-white matter differentiation is preserved. Proportional prominence of the ventricles and sulcal spaces. No evidence for obstructive hydrocephalus. No abnormal mass effect or midline shift. No extra-axial fluid collections. No acute soft tissue or osseous abnormalities. The mastoid air cells and paranasal sinuses are clear. CT/CT head/brain wo IV con IMPRESSION: 1. No evidence of acute intracranial hemorrhage or edematous territorial infarction. 2. Chronic microangiopathy and generalized cerebral volume loss.
[2022-07-06 19:06] VITALS: BP 149/91; PULSE 90; RESP 18; TEMP 36.4; O2SAT 98; BMI 30.9
--- NOTE | 2022-07-06 19:06 | ED.HA ---
HPI - Headache General Chief Complaint: Headache <GRABIEL Mtz - Last Filed: 07/06/22 19:10> Stated Complaint: Migraine <GRABIEL Mtz - Last Filed: 07/06/22 19:10> Time Seen by Provider: 07/07/22 01:32 <GRABIEL Mtz - Last Filed: 07/06/22 19:10> Source: patient, RN notes reviewed and old records reviewed <Chaka Lemus - Last Filed: 07/07/22 01:54> Mode of arrival: ambulatory <Chaka Lemus - Last Filed: 07/07/22 01:54> Limitations: no limitations <Chaka Mariah - Last Filed: 07/07/22 01:54> History of Present Illness HPI Narrative: 46-year-old female with past medical history significant for hypertension, hypothyroidism, chronic neck pain, anxiety, demyelinating brain disease presents for evaluation of a headache. Patient reports a previous abnormal brain MRI that shows ?demyelinating disease. She reports that she was initially told that she has MS but then was subsequently told that she does not have MS and she needs to follow up with a different neurologist Patient also has chronic neck pain and is following with Neurosurgery She an MRI of her cervical spine April 24, 2022. She is due to follow-up with Neurosurgery later this week, Dr. Mandel Patient presents the ER today for a global headache The headache started 6 days ago and has been getting progressively worse The headache is constant She reports associated light sensitivity and nausea Denies any fevers, weakness No trauma to the head or neck She has no other complaints or concerns at this time <Chaka Lemus - Last Filed: 07/07/22 01:54> Related Data Home Medications: Home Medications Medication Instructions Recorded Confirmed amlodipine 5 mg tablet 5 mg PO DAILY 05/19/22 05/19/22 losartan 50 mg tablet 50 mg PO DAILY 05/19/22 05/19/22 Previous Rx's Medication Instructions Recorded albuterol sulfate 90 mcg/actuation 1 inh inhalation QID 30 days #8.5 02/06/21 aerosol inhaler grams levothyroxine 150 mcg tablet 150 mcg PO DAILY #90 tabs 11/16/21 gabapentin 100 mg capsule See Rx Instructions .Route BEDTIME 05/19/22 #150 caps lorazepam 0.5 mg tablet 0.5 mg PO DAILY PRN anxiety 30 06/01/22 days #15 tabs tramadol 50 mg tablet 50 mg PO Q8H pain 10 days #30 tabs 06/29/22 csqajmnmib-jwlkilklvpbuu-rjilvhtu 1 cap PO TID PRN headache #15 caps 07/07/22 50 mg-300 mg-40 mg capsule (Fioricet) <GRABIEL Mtz - Last Filed: 07/06/22 19:10> Allergies/Adverse Reactions: Allergies Allergy/AdvReac Type Severity Reaction Status Date / Time lisinopril [LISINOPRIL] Allergy Mild COUGHING, Verified 07/06/22 19:06 cough, COUGH shellfish derived Allergy Unknown UNKNOWN Verified 07/06/22 19:06 [SHELLFISH DERIVED] REACTION-TOLD BY PARENT <GRABIEL Mtz - Last Filed: 07/06/22 19:10> Review of Systems Constitutional: Constitutional: Reports as per HPI, Denies chills, Denies fatigue, Denies fever(s) and Reports headache(s) <Chaka Lemus - Last Filed: 07/07/22 01:54> ENT: Reports headache(s) <Chaka Lemus - Last Filed: 07/07/22 01:54> Cardiovascular: Cardiovascular: Denies chest pain and Denies dyspnea <Chaka Lemus - Last Filed: 07/07/22 01:54> Respiratory: Respiratory: Denies cough and Denies dyspnea <Chaka Lemus - Last Filed: 07/07/22 01:54> Gastrointestinal: Gastrointestinal: Denies abdominal pain, Denies constipation, Reports nausea and Denies vomiting <Chaka Lemus - Last Filed: 07/07/22 01:54> Genitourinary: Genitourinary: Denies dysuria <Chaka Lemus - Last Filed: 07/07/22 01:54> Neurologic: Reports headache(s) and Denies focal weakness <Chaka Lemus - Last Filed: 07/07/22 01:54> Endocrine: Endocrine: Denies fatigue <Chaka Lemus - Last Filed: 07/07/22 01:54> [facility] Past Medical History Medical History: Medical History (Updated 07/07/22 @ 01:52 by Chaka Lemus) Abnormal finding on MRI of brain Asthma Back pain delivery delivered CKD (chronic kidney disease) Fatty liver GERD (gastroesophageal reflux disease) HTN (hypertension) Hypersomnia Hypothyroid IgA nephropathy Migraine Multiple sclerosis Neck pain Numbness and tingling in both hands Obesity (BMI 30-39.9) Snoring Snoring Spinal stenosis in cervical region Tobacco abuse Vitamin D deficiency <GRABIEL Mzt - Last Filed: 07/06/22 19:10> Surgical History: Surgical History (Updated 05/19/22 @ 13:08 by Brenda Mckinnon MD) Cervical disc disease Tubal ligation status <GRABIEL Mtz - Last Filed: 07/06/22 19:10> Family History Family History: Family History Mother Mental health disorder Lung cancer Father Prostate cancer Heart attack, Onset Age: 80 <GRABIEL Mtz - Last Filed: 07/06/22 19:10> Social History Social History: Social History Housing: Apartment Alcohol intake: current Alcohol intake frequency: holidays/special occasions only Patient Tobacco Use Status: Current everyday Tobacco user Tobacco use type: Cigarette Cigarettes Per Day: 5 e-Cigarette/Vaping Use: Never Used Second Hand Smoke Exposure: No Advance Directives: No Advance Directives Information Provided: Yes service: No Current occupational status: employed 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 Cognitive needs: No Hearing needs: No Vision needs: No <GRABIEL Mtz - Last Filed: 07/06/22 19:10> Physical Exam Vital Signs: Vital Signs: Last Vital Signs Temp 97.6 F 07/06/22 19:06 Pulse 90 07/06/22 19:06 Resp 18 07/06/22 19:06 BP 149/91 H 07/06/22 19:06 Pulse Ox 98 07/06/22 19:06 O2 Del Method Room Air 07/06/22 19:06 BMI result Body Mass Index 30.9 <GRABIEL Mtz - Last Filed: 07/06/22 19:10> Vital Signs: Last Vital Signs Temp 97.6 F 07/06/22 19:06 Pulse 90 07/06/22 19:06 Resp 18 07/06/22 19:06 BP 149/91 H 07/06/22 19:06 Pulse Ox 98 07/06/22 19:06 O2 Del Method Room Air 07/06/22 19:06 BMI result Body Mass Index 30.9 <Chaka OHari - Last Filed: 07/07/22 01:54> Const: General: healthy appearing, comfortable, no acute distress, alert and awake <Chaka O Last Filed: 07/07/22 01:54> Nutritional Appearance: well nourished < Last Filed: 07/07/22 01:54> Orientation/consciousness: patient oriented x3 < Filed: 07/07/22 01:54> HEENT: Head: Yes normocephalic and Yes atraumatic < Last Filed: 07/07/22 01:54> Throat: Yes posterior oropharynx normal < Last Filed: 07/07/22 01:54> Eyes: Eyelids: Yes eyelids normal < Last Filed: 07/07/22 01:54> Conjunctivae: conjunctivae normal < Last Filed: 07/07/22 01:54> Sclerae: sclerae normal < Filed: 07/07/22 01:54> Corneas: corneas normal < Last Filed: 07/07/22 01:54> Pupils: Equal, round and reactive pupils present <Chaka Frantz Last Filed: 07/07/22 01:54> EOM: EOMs intact bilaterally <Chaka Frantz Last Filed: 07/07/22 01:54> Neck: Neck: Yes full ROM <Chaka Frantz Last Filed: 07/07/22 01:54> Resp: Effort & Inspection: normal respiratory effort, able to speak in complete sentences, no audible wheezes and not labored <Chaka O Last Filed: 07/07/22 01:54> Auscultation: clear to auscultation bilaterally <Chaka Lagos Last Filed: 07/07/22 01:54> Cardio: Rate: regular rate <Chaka OHari - Last Filed: 07/07/22 01:54> Rhythm: regular rhythm <Chaka OPackwood - Last Filed: 07/07/22 01:54> GI: Inspection: No distended <Chaka OPackwood - Last Filed: 07/07/22 01:54> Palpation (GI): Soft to palpation, not firm, nontender, no guarding and not rigid <Chakaemilee Lagos Last Filed: 07/07/22 01:54> Auscultation: normoactive bowel sounds <Chaka OPackwood - Last Filed: 07/07/22 01:54> Skin: General skin exam: no rashes or lesions noted and elasticity normal <Chaka OPackwood - Last Filed: 07/07/22 01:54> Neuro: General: patient oriented x3 <Chaka OPackwood - Last Filed: 07/07/22 01:54> Cranial nerves: Yes CN's II-XII intact bilaterally, Yes Equal, round and reactive pupils present and Yes Bilaterally intact EOM present <Chakaemilee Lagos Last Filed: 07/07/22 01:54> Cognition (Neuro): normal cognition <Chaka OPackwood - Last Filed: 07/07/22 01:54> Gait exam (Neuro): Normal gait present <Chaka OPackwood - Last Filed: 07/07/22 01:54> Motor exam (neuro): 5/5 motor strength present throughout, Pronator motor function not present, no tremor noted and Motor fasciculations not present <Chaka Lagos Last Filed: 07/07/22 01:54> Course Course Course Narrative: RME - 46 yo female with history of abnormal MRI with demyelinating disease c/w multiple sclerosis, not on any medications, CKD, cervical spinal stenosis who presents to the ER for evaluation of severe frontal headache for the last 6 days associated with nausea and blurred vision. Worst headache she has ever had. Not responding to PO meds. Plan: CT head, medicate and reassess. <GRABIEL Mtz - Last Filed: 07/06/22 19:10> Medical Decision Making Medical Decision Making MDM Narrative: A 46-year-old female with a history of a demyelinating disease of the brain presents for evaluation of headache. She has no neurologic deficits and his NIH stroke score of 0. Patient is CT scan that only shows chronic microangiopathic changes. Will treat the patient's headache with IV fluids, Reglan, Benadryl, Toradol. <Chaka Lemus - Last Filed: 07/07/22 01:54> Differential Diagnosis Acute headache Chronic headache Migraine headache Tension headache MS <Chaka Lemus - Last Filed: 07/07/22 01:54> Radiology Impression Discussion of test interpretation with radiology: I have reviewed the radiologist's reading. (Chronic microangiopathic changes of the brain) <Chaka Lemus - Last Filed: 07/07/22 01:54> Discharge Plan Discharge Clinical Impression: Headache <GRABIEL Mtz - Last Filed: 07/06/22 19:10> Patient Disposition: Still a Patient <GRABIEL Mtz - Last Filed: 07/06/22 19:10> Instructions: Acute Headache (ED) <GRABIEL Mtz - Last Filed: 07/06/22 19:10> Additional Instructions: Your CT scan did not show any acute findings You may take Fioricet for any further headaches Follow-up with your neurologist and your primary doctor Return for any new or worsening symptoms <GRABIEL Mtz - Last Filed: 07/06/22 19:10> Prescriptions: New jauwyofief-nazpefjkdcilt-ewao [Fioricet] 50-300-40 mg capsule 1 cap PO TID PRN (Reason: headache) Qty: 15 0RF No Action levothyroxine 150 mcg tablet 150 mcg PO DAILY Qty: 90 2RF lorazepam 0.5 mg tablet 0.5 mg PO DAILY PRN (Reason: anxiety) 30 Days Qty: 15 2RF tramadol 50 mg tablet 50 mg PO Q8H 10 Days Qty: 30 0RF albuterol sulfate 90 mcg/actuation HFA aerosol inhaler 1 inh inhalation QID 30 Days Qty: 8.5 2RF amlodipine 5 mg tablet 5 mg PO DAILY losartan 50 mg tablet 50 mg PO DAILY gabapentin 100 mg capsule See Rx Instructions .ROUTE BEDTIME Qty: 150 3RF Rx Instructions: 1 tab bid and 3 tabs qhs <GRABIEL Mtz - Last Filed: 07/06/22 19:10> Stand Alone Forms: Work/School Release <GRABIEL Mtz - Last Filed: 07/06/22 19:10>
[2022-07-07 01:51] VITALS: BP 125/74; PULSE 86; RESP 18; TEMP 36.4; O2SAT 98
[2022-07-07] MEDS: 0.9 % Sodium Chloride 1,000 ML 999 ML IV (01:58)
[2022-07-07] MEDS: Ketorolac Tromethamine 30 MG/ML VIAL IVPUSH (01:58)
[2022-07-07] MEDS: Metoclopramide HCl 10 MG/2 ML VIAL IVPUSH (01:59)
[2022-07-07] MEDS: diphenhydrAMINE HCL 50 MG/ML VIAL 25 MG IVPUSH (01:59)
== END 2022-07-07 03:00 | disposition home or self-care (01) ==
PROVIDERS: Emergency Provider Internal Medicine; PCP Physician Assistant
DX: G43.909 Migraine, unspecified, not intractable, without status migrainosus (principal); F17.210 Nicotine dependence, cigarettes, uncomplicated; Z71.6 Tobacco abuse counseling; Z79.899 Other long term (current) drug therapy
CPT/HCPCS: 70450; 96374; 96375; 99284; J1200; J1885; J2765

== ENCOUNTER → 2022-07-10 09:17 | Outpatient (BNVA) | payer OTHER, SELFPAY | PROVIDERS: PCP Physician Assistant; Visit Provider Physician Assistant ==

== ENCOUNTER 2022-07-30 07:49 | Day surgery (SDC) | payer OTHER, SELFPAY ==
--- NOTE | 2022-07-23 | ECG_ITS ---
Test Reason : preop Blood Pressure : / mmHG Vent. Rate : 068 BPM Atrial Rate : 068 BPM P-R Int : 146 ms QRS Dur : 094 ms QT Int : 382 ms P-R-T Axes : 054 019 089 degrees QTc Int : 406 ms Normal sinus rhythm Nonspecific T wave abnormality Abnormal ECG When compared with ECG of 22-NOV-2019 13:00, QT has lengthened Referred By: Montse Mathew Electronically Signed By:Gideon Dahl
[2022-07-23 12:09] VITALS: BP 136/85; PULSE 74; RESP 16; O2SAT 98; BMI 32.8
--- NOTE | 2022-07-23 12:23 | P.CONAN_ITS ---
Documented by User: Montse Mathew NP 07/24/22 14:00 HPI - Anesthesia Eval Consult details Narrative: 46yo F for C4-C5 Ant Cerv Discectomy w/ fusion [facility] [place] for ? MS - hx of nml LP, MRI 2019 showed some scatter white matter changes - referred to neurosurg and started on gabapentin Nephro eval 06/18/22 for IgA nephopathy - htn meds adjusted, renal function stable PMFSH Active Problems Active Problems: All Active Problems (Updated 07/23/22 @ 12:09 by Elizabeth Jane, RN) Tracheobronchitis (Acute) Abnormal uterine bleeding (AUB) (Acute) Generalized anxiety disorder (Acute) Annual physical exam (Acute) Bilateral flank pain (Acute) Upper respiratory tract infection (Acute) Fatigue (Acute) Insomnia (Acute) Acute pharyngitis (Acute) Mid back pain (Acute) Cystitis (Acute) Leukocytosis (Acute) Elevated LFTs (Acute) Nephropathy (Acute) Demyelinating changes in brain (Acute) Colon cancer screening (Acute) Breast cancer screening (Acute) Back pain of lumbar region with sciatica (Acute) Tobacco dependence (Acute) Chronic cough (Acute) IgA nephropathy (Acute) Spinal stenosis in cervical region (Acute) Snoring (Acute) Abnormal finding on MRI of brain (Acute) Snoring (Acute) Hypersomnia (Acute) Cervical disc disease (Acute) Numbness and tingling in both hands (Acute) Back pain (Acute) Neck pain (Acute) CKD (chronic kidney disease) (Acute) HTN (hypertension) (Acute) Tobacco abuse (Acute) Fatty liver (Acute) GERD (gastroesophageal reflux disease) (Acute) Obesity (BMI 30-39.9) (Acute) Asthma (Acute) Hypothyroid (Acute) Past Medical History Medical History (Updated 07/23/22 @ 12:33 by Elizabeth Jane, JAMES) Abnormal finding on MRI of brain Asthma Back pain delivery delivered CKD (chronic kidney disease) Fatty liver GERD (gastroesophageal reflux disease) History of lumbar puncture HTN (hypertension) Hypersomnia Hypothyroid IgA nephropathy Migraine Multiple sclerosis Neck pain Numbness and tingling in both hands Obesity (BMI 30-39.9) Personal history of COVID-19 Snoring Snoring Spinal stenosis in cervical region Tobacco abuse Vitamin D deficiency Family History Family History Mother Mental health disorder Lung cancer Father Prostate cancer Heart attack, Onset Age: 80 Surgical History Surgical History (Updated 07/30/22 @ 08:00 by Randi Byrd) Cervical disc disease History of Status post biopsy of kidney Tubal ligation status Social History Social History Housing: Apartment Are you a primary child care center administrator to a significant other at home: No Do you presently have visiting nurse or other home services: No Alcohol intake: current Alcohol intake frequency: holidays/special occasions only Patient Tobacco Use Status: Current everyday Tobacco user Tobacco use type: Cigarette Cigarettes Per Day: 8 Years Smoked: 11 Smoked in Last 30 Days: Yes e-Cigarette/Vaping Use: Never Used Patient Interested in Nicotine Replacement: Yes Second Hand Smoke Exposure: Yes Use of substances other than those prescribed or required for medical reasons: No Have you been hit, kicked, punched, or otherwise hurt by someone within the past year? 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 Cognitive needs: No Hearing needs: No Vision needs: No Narrative Narrative: No recent illness No CP/SOB Meds Allergies Allergy/AdvReac Type Severity Reaction Status Date / Time lisinopril [LISINOPRIL] Allergy Mild COUGHING Verified 07/30/22 07:59 shellfish derived Allergy Unknown UNKNOWN Verified 07/30/22 07:59 [SHELLFISH DERIVED] REACTION-TOLD BY PARENT Home Medications Medication Instructions Recorded Confirmed Last Taken Type amlodipine 5 mg tablet 5 mg PO DAILY 05/19/22 07/30/22 07/30/22 07:00 History losartan 100 mg tablet 100 mg PO DAILY 07/10/22 07/30/22 Unknown History albuterol sulfate 90 mcg/actuation 1 inh inhalation QID PRN Shortness 07/23/22 07/30/22 Unknown History aerosol inhaler Of Breath Or Wheezing tramadol 50 mg tablet 50 mg PO Q8H PRN Pain 07/23/22 07/30/22 Unknown History Exam Exam Date and Time: July 23, 2022 1223 Height,Weight and Vital Signs: Height 5 ft 4 in Weight 86.6 kg Last Vital Signs Pulse 74 07/23/22 12:09 Resp 16 07/23/22 12:09 BP 136/85 07/23/22 12:09 Pulse Ox 98 07/23/22 12:09 O2 Del Method Room Air 07/23/22 12:09 Pertinent Lab Results Pertinent Lab Results: Laboratory Tests 04/24/22 04/24/22 09:02 09:02 WBC 10.2 Hgb 15.3 Hct 44.9 Plt Count 302 Sodium 139 Potassium 4.2 Chloride 108 Carbon Dioxide 21 L BUN 15 Creatinine 1.00 Narrative Narrative: EKG 07/2022 Vent. Rate : 068 BPM ? ? Atrial Rate : 068 BPM ?? P-R Int : 146 ms? QRS Dur : 094 ms ? ? QT Int : 382 ms ? ? ? P-R-T Axes : 054 019 089 degrees ?? QTc Int : 406 ms ? Normal sinus rhythm Nonspecific T wave abnormality Abnormal ECG When compared with ECG of 22-NOV-2019 13:00, QT has lengthened CT head/brain wo IV con 07/2022 IMPRESSION: 1.? No evidence of acute intracranial hemorrhage or edematous territorial infarction. 2.? Chronic microangiopathy and generalized cerebral volume loss. Airway Mallampati Class: II TM Dist: >3cm Neck ROM: Limited (s/p fusion 2011) Loose/Missing/Broken Teeth: No Heart: RRR Lungs: CTAB Assessment and Plan Assessment Anesthesia Assessment: Anesthesia Plan Discussed, Smoking Cess. Discussed and PAT Visit Documented by User: Zac Garcia MD 07/30/22 09:21 [facility] Past Medical History Medical History (Updated 07/23/22 @ 12:33 by Elizabeth Jane RN) Abnormal finding on MRI of brain Asthma Back pain delivery delivered CKD (chronic kidney disease) Fatty liver GERD (gastroesophageal reflux disease) History of lumbar puncture HTN (hypertension) Hypersomnia Hypothyroid IgA nephropathy Migraine Multiple sclerosis Neck pain Numbness and tingling in both hands Obesity (BMI 30-39.9) Personal history of COVID-19 Snoring Snoring Spinal stenosis in cervical region Tobacco abuse Vitamin D deficiency Family History Family History Mother Mental health disorder Lung cancer Father Prostate cancer Heart attack, Onset Age: 80 Family history of problems with anesthesia: No Surgical History Surgical History (Updated 07/30/22 @ 08:00 by Randi Byrd) Cervical disc disease History of Status post biopsy of kidney Tubal ligation status History of Problems with Anesthesia: No Social History Social History Housing: Apartment Are you a primary child care center administrator to a significant other at home: No Do you presently have visiting nurse or other home services: No Alcohol intake: current Alcohol intake frequency: holidays/special occasions only Patient Tobacco Use Status: Current everyday Tobacco user Tobacco use type: Cigarette Cigarettes Per Day: 8 Years Smoked: 11 Smoked in Last 30 Days: Yes e-Cigarette/Vaping Use: Never Used Patient Interested in Nicotine Replacement: Yes Second Hand Smoke Exposure: Yes Use of substances other than those prescribed or required for medical reasons: No Have you been hit, kicked, punched, or otherwise hurt by someone within the past year? 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 Cognitive needs: No Hearing needs: No Vision needs: No Meds Allergies Allergy/AdvReac Type Severity Reaction Status Date / Time lisinopril [LISINOPRIL] Allergy Mild COUGHING Verified 07/30/22 07:59 shellfish derived Allergy Unknown UNKNOWN Verified 07/30/22 07:59 [SHELLFISH DERIVED] REACTION-TOLD BY PARENT Home Medications Medication Instructions Recorded Confirmed Last Taken Type amlodipine 5 mg tablet 5 mg PO DAILY 05/19/22 07/30/22 07/30/22 07:00 History losartan 100 mg tablet 100 mg PO DAILY 07/10/22 07/30/22 Unknown History albuterol sulfate 90 mcg/actuation 1 inh inhalation QID PRN Shortness 07/23/22 07/30/22 Unknown History aerosol inhaler Of Breath Or Wheezing tramadol 50 mg tablet 50 mg PO Q8H PRN Pain 07/23/22 07/30/22 Unknown History Assessment and Plan Final Anesthetic Review Family History of Problems with Anesthesia: No History of Problems with Anesthesia: No NPO: Yes ASA Class: II Final Preanesthetic Review: No Changes in Pt Med Stat, Meds/Allgs Chart Reviewed , Consent Obtained/Reviewed and Anes Risks/Benef Reviewed Patient Risk: Intermediate Procedure Risk: Intermediate Anesthetic Plan Anesthetic Plan: GA and Agree w/ Assess. and Plan Disposition: Standard PACU
[2022-07-30] VITALS (13 sets, daily range): BP systolic 113–145; BP diastolic 64–90; PULSE 71–88; RESP 16–17; TEMP 36.5; O2SAT 94–98
--- NOTE | ~2022-07-30 | FL_ITS ---
EXAMINATION: XR FLUOROSCOPY WITH IMAGES CLINICAL INFORMATION: ACDF. COMPARISON: Previous cervical spine x-ray 07/18/2021. TECHNIQUE: Fluoroscopy Supervised By: Bj Mandel MD Fluoroscopy Time: 0 minutes. Cumulative Dose: 1.27 mGy. DAP: 0.23 Gy-cm2. Images: 2. FINDINGS: Fluoroscopy guidance was performed for ACDF. There is postsurgical change from ACDF at C4-C5 that is new in the interval from July 2017. There is ACDF from C5 to C7 that appears unchanged. On the AP view there is question of a drain projecting over the lateral neck. FL/FL guidance in OR IMPRESSION: Fluoroscopy guidance for ACDF.
[2022-07-30] MEDS: Lactated Ringers 1,000 ML 100 ML IVCONT (08:20)
[2022-07-30] MEDS: Gabapentin 300 MG CAPSULE PO (08:21)
[2022-07-30] MEDS: methocarbamoL 750 MG TABLET PO (08:21)
--- NOTE | 2022-07-30 09:21 | HO.ANESPROP2 ---
[facility] Active Problems Active Problems: All Active Problems Tracheobronchitis (Acute) Abnormal uterine bleeding (AUB) (Acute) Generalized anxiety disorder (Acute) Annual physical exam (Acute) Bilateral flank pain (Acute) Upper respiratory tract infection (Acute) Fatigue (Acute) Insomnia (Acute) Acute pharyngitis (Acute) Mid back pain (Acute) Cystitis (Acute) Leukocytosis (Acute) Elevated LFTs (Acute) Nephropathy (Acute) Demyelinating changes in brain (Acute) Colon cancer screening (Acute) Breast cancer screening (Acute) Back pain of lumbar region with sciatica (Acute) Tobacco dependence (Acute) Chronic cough (Acute) IgA nephropathy (Acute) Spinal stenosis in cervical region (Acute) Snoring (Acute) Abnormal finding on MRI of brain (Acute) Snoring (Acute) Hypersomnia (Acute) Cervical disc disease (Acute) Numbness and tingling in both hands (Acute) Back pain (Acute) Neck pain (Acute) CKD (chronic kidney disease) (Acute) HTN (hypertension) (Acute) Tobacco abuse (Acute) Fatty liver (Acute) GERD (gastroesophageal reflux disease) (Acute) Obesity (BMI 30-39.9) (Acute) Asthma (Acute) Hypothyroid (Acute) Past Medical History Medical History (Updated 07/23/22 @ 12:33 by Elizabeth Jane RN) Abnormal finding on MRI of brain Asthma Back pain delivery delivered CKD (chronic kidney disease) Fatty liver GERD (gastroesophageal reflux disease) History of lumbar puncture HTN (hypertension) Hypersomnia Hypothyroid IgA nephropathy Migraine Multiple sclerosis Neck pain Numbness and tingling in both hands Obesity (BMI 30-39.9) Personal history of COVID-19 Snoring Snoring Spinal stenosis in cervical region Tobacco abuse Vitamin D deficiency Family History Family History Mother Mental health disorder Lung cancer Father Prostate cancer Heart attack, Onset Age: 80 Surgical History Surgical History (Updated 07/30/22 @ 08:00 by Randi Byrd) Cervical disc disease History of Status post biopsy of kidney Tubal ligation status Social History Social History Housing: Apartment Are you a primary rn wound care to a significant other at home: No Do you presently have visiting nurse or other home services: No Alcohol intake: current Alcohol intake frequency: holidays/special occasions only Patient Tobacco Use Status: Current everyday Tobacco user Tobacco use type: Cigarette Cigarettes Per Day: 8 Years Smoked: 11 Smoked in Last 30 Days: Yes e-Cigarette/Vaping Use: Never Used Patient Interested in Nicotine Replacement: Yes Second Hand Smoke Exposure: Yes Use of substances other than those prescribed or required for medical reasons: No Have you been hit, kicked, punched, or otherwise hurt by someone within the past year? 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 Cognitive needs: No Hearing needs: No Vision needs: No Meds Allergies Allergy/AdvReac Type Severity Reaction Status Date / Time lisinopril [LISINOPRIL] Allergy Mild COUGHING Verified 07/30/22 07:59 shellfish derived Allergy Unknown UNKNOWN Verified 07/30/22 07:59 [SHELLFISH DERIVED] REACTION-TOLD BY PARENT Active Medications: Current Medications Albuterol Sulfate (Albuterol Sulfate (0.083%) 2.5 Mg/3 Ml Vial.Neb) 2.5 mg INHALE ONCE PRN PRN Reason: Shortness of Breath/Wheezing Lactated Ringer's (Lr) 1,000 mls @ 100 mls/hr IVCONT .Q10H ROGE Last Admin: 07/30/22 08:20 Dose: 100 mls/hr Home Medications Medication Instructions Recorded Confirmed Last Taken Type amlodipine 5 mg tablet 5 mg PO DAILY 05/19/22 07/30/22 07/30/22 07:00 History losartan 100 mg tablet 100 mg PO DAILY 07/10/22 07/30/22 Unknown History albuterol sulfate 90 mcg/actuation 1 inh inhalation QID PRN Shortness 07/23/22 07/30/22 Unknown History aerosol inhaler Of Breath Or Wheezing tramadol 50 mg tablet 50 mg PO Q8H PRN Pain 07/23/22 07/30/22 Unknown History Exam Exam Date and Time: July 30, 2022 0921 Height,Weight and Vital Signs: Height 5 ft 4 in Weight 86.6 kg Last Vital Signs Temp 97.7 F 07/30/22 08:09 Pulse 80 07/30/22 08:09 Resp 16 07/30/22 08:09 BP 113/64 07/30/22 08:09 Pulse Ox 96 07/30/22 08:09 O2 Del Method Room Air 07/30/22 08:09 Airway Mallampati Class: II TM Dist: >3cm Neck ROM: Limited Heart: rrr Lungs: cta
--- NOTE | 2022-07-30 11:39 | P.DS_ITS ---
DS: Providers Provider Date of Service: 07/30/22 Date of discharge: 07/30/22 Primary care physician: Donta Bellamy PA-C Admitting clinician: Bj Mandel DS: Diagnosis Discharge Diagnosis (1) Cervical disc disease: Status: Acute DS: Summary Time Spent with Patient Time attestation: Total time managing care of this patient today ____ minutes. Discharge coordination time: Less than 30 minutes Quality: Safe Use of Opioids Does Pt have an Active Cancer Diagnosis on the Problem List?: No Quality: Stroke Does the patient have a stroke diagnosis?: No Physical Exam Vital Signs: Vital Signs: Last Vital Signs Temp 97.7 F 07/30/22 08:09 Pulse 80 07/30/22 08:09 Resp 16 07/30/22 08:09 BP 113/64 07/30/22 08:09 Pulse Ox 96 07/30/22 08:09 O2 Del Method Room Air 07/30/22 08:09 BMI result Body Mass Index 32.8 Discharge Plan Discharge Patient Disposition: Home, Self-Care Referrals: Donta Bellamy PA-C [Primary Care Provider] - 1 Week Discharge Medications: New docusate sodium [Colace] 100 mg capsule 100 mg PO BID Qty: 20 0RF oxycodone 5 mg tablet 5 mg PO Q4H PRN (Reason: pain) Qty: 30 0RF Rx Instructions: Partial Fill upon patient request. Continued lorazepam 0.5 mg tablet 0.5 mg PO DAILY PRN (Reason: anxiety) 30 Days Qty: 15 2RF levothyroxine 150 mcg tablet 150 mcg PO DAILY Qty: 90 2RF albuterol sulfate 90 mcg/actuation HFA aerosol inhaler 1 inh inhalation QID PRN (Reason: Shortness Of Breath Or Wheezing) varenicline 1 mg tablet 1 mg PO BID 28 Days Qty: 56 3RF benzonatate 200 mg capsule 200 mg PO TID PRN (Reason: cough) 5 Days Qty: 15 0RF amlodipine 5 mg tablet 5 mg PO DAILY gabapentin 100 mg capsule See Rx Instructions .ROUTE BEDTIME Qty: 150 3RF Rx Instructions: 1 tab bid and 3 tabs qhs losartan 100 mg tablet 100 mg PO DAILY Discontinued tramadol 50 mg tablet 50 mg PO Q8H PRN (Reason: Pain) Discharge Orders: Discharge Order (Routine); Ordered 07/30/22 Ordered By: Paco Aly Diet: Advance to usual diet Activity on Discharge: As tolerated Activity Restrictions/Additional Instructions: After your spinal surgery we ask you to observe the following r estrictions/guidelines: Activity: It is normal to feel some discomfort as you increase your activity, but that will improve with time. We ask you avoid heavy lifting or acitivities that cause pain. As a general rule, 8lbs is a safe limit for lifting right after surgery. Walk as much as you feel comfortable but not to exhaustion. You will feel extra tired the first few days after surgery. Stay well hydrated. It is OK to walk up and down stairs You may return to driving when you are off narcotics (such as vicodin, oxycodone, dilaudid, etc), and you are back to normal functional capacity. If you have any concerns please check with office before driving. Return to work is specific to each patient and each surgery, so please speak with your doctor/PA at first follow up. Please bring paperwork such as FMLA at that time if you need it filled out. Medications: We will give you a short supply of narcotics after surgery (usually one weeks worth). If you need more please call the office but do not use more than prescribed. You will need to give our office 48 hours notice if you need narcotics refilled and we do not fill narcotics on weekends or evenings. If you are on a narcotic, it is a good idea to take a stool softener such as colace or senna to avoid constipation If you take blood thinner such as aspirin, Plavix, Coumadin, Effient, Eliquis etc for conditions such as Afib, DVT, Pulmonary embolus, coronary disease, stents etc please speak with your surgeon about specific details as to when you can resume these medications. You can resume NSAIDs on post op day 1 (eg: Motrin, Naproxen, etc). Follow up: Please call the office, , after surgery to arrange a 3 week follow up for wound check. Wound Care: You may remove your dressing on the first day after surgery. You may leave open to air. Please do not remove the steri strips underneath. they will fall off on their own in one week. IT IS NORMAL FOR THE WOUND TO OOZE OR BE BLOODY FOR A FEW DAYS AFTER SURGERY. IF THIS HAPPENS JUST PLACE NEW DRESSING OVER IT TO AVOID STAINING CLOTHES. You may shower on post op day # 1 We ask that you do not let the water soak the wound. If it does get wet, just towel dry lightly. Please do not scrub your incision or place any type of chemical/ointment on the wound. No tub baths, pools or jacuzzis for one month. If you have any leaking or redness from your wound, or fevers, please call office
--- NOTE | 2022-07-30 11:41 | W.PM.OPN ---
Operative Note Operative Note Date of Service: 07/30/22 Narrative: Preoperative Diagnosis: chronic neck pain and bilateral cervical radiculopathy Procedure: C4-5Anterior discectomy, arthrodesis and implantation cage ; C4-5 anterior instrumentation ; local autograft; microscope Informed Consent was obtained for this operation. I have explained the nature, purpose and benefits of the operation. I have discussed the risks and benefit of the operation including possible complications or adverse events with patient/family. Alternative(s) were discussed with the patient with their relative benefits and risks as well as the consequences of not accepting the operation were included in obtaining consent. Surgeon: LIZETH LOFTON MD, PHD Procedure Assisted By: Paco See Description of Procedure: this 46-year-old female underwent a C5-6 C6-7 anterior diskectomy and fusion in another institution. She developed adjacent degenerative disc disease C4-5 with compression of the spinal cord and bilateral foraminal narrowing. She was offered an anterior diskectomy fusion C4-C5.The procedure complications were explained. The patient was consented. The patient was brought to the operating room and endotracheally intubated. The patient was put in supine position with slight extension of the neck. Prep and drape was done followed by timeout. A mid cervical incision was made followed by opening of the platysma. The prevertebral fascia was reached following the natural planes while the physician assistant manager pt provided manual retraction. The prevertebral fascia was opened to expose the disc space and the cranial part of the plate. A spinal needle was placed in the disk space to confirm the correct level with xray. The longus colli muscles were released bilaterally and a self retaining retractor was inserted. Two [place] pins were placed in the C4 and C5 vertebral bodies and distraction was give over the interspace.The discectomy was completed toward the posterior annulus of the disc. The microscope was brought in. Theremainder of the discectomy was completed. The posterior ligament was opened and resected to expose the underlying dura. Osteophytes were resected from the body of C4 and C5 and saved for autograft. Bilateral foraminotomies were done, where severe left foraminal stenosis was relieved. The endplates were prepared after which a 6 mm cage filled with autograft was inserted into the disc space. A separate attached plate was locked down with 2 x 14 mm screws as anterior instrumentation. Final x-rays in AP and lateral projection showed a satisfactory position of the implant. The physician assistant manager pt took over. The [place] pin was removed. Hemostasis was done. He closed the incision in 2 layers with a 3-0 Vicryl. Steri-Strips used to approximate incision. An OpSite with Tegaderm was used to cover the incision. All sponge and needle counts were correct. Patient was extubated and transported in stable is to recovery room. Anesthesia: General Estimated Blood Loss (ml): 30 Duration of Surgery: 90 Postoperative Plan: Discharge home Complications: None
[2022-07-30] MEDS: oxyCODONE HCl Immed Release 5 MG TABLET PO (12:12)
[2022-07-30] MEDS: HYDROmorphone HCl 0.5 MG/0.5 ML SYRINGE 0.25 MG IVPUSH ×3 (12:13→12:32)
--- NOTE | 2022-07-30 12:17 | PHA.MEDREC ---
Pharmacy Consult ? Medication Reconciliation Pharmacy has completed the medication reconciliation. Reviewed med rec done by nursing
== END 2022-07-30 15:33 | disposition home or self-care (01) ==
PROVIDERS: PCP Physician Assistant; Visit Provider Neurological Surgery
PROC: (CPT 22551; principal; 2022-07-30 09:40)
DX: M48.02 Spinal stenosis, cervical region (principal); M50.121 Cervical disc disorder at C4-C5 level with radiculopathy; G89.29 Other chronic pain; M25.512 Pain in left shoulder; M25.511 Pain in right shoulder; R20.2 Paresthesia of skin; G56.03 Carpal tunnel syndrome, bilateral upper limbs; I12.9 Hypertensive chronic kidney disease with stage 1 through stage 4 chronic kidney disease, or unspecified chronic kidney disease; F17.210 Nicotine dependence, cigarettes, uncomplicated; N18.9 Chronic kidney disease, unspecified; Z88.8 Allergy status to other drugs, medicaments and biological substances
CPT/HCPCS: 22551; 22853; 20936; 22845; 93005; C1713; J0131; J0690; J1100; J1170; J1885; J2405; J3010

== ENCOUNTER → 2022-08-18 13:55 | Outpatient (BNVA) | payer OTHER, SELFPAY | PROVIDERS: PCP Physician Assistant; Visit Provider Physician Assistant ==

== ENCOUNTER 2022-09-29 10:29 | Outpatient (REF) | payer OTHER, SELFPAY ==
--- NOTE | ~2022-09-29 | XR_ITS ---
EXAMINATION: XR CHEST CLINICAL INFORMATION: Chronic cough COMPARISON: None available. TECHNIQUE: 2 views of the chest were obtained. FINDINGS: The lungs are well-expanded and clear of acute process. The heart size and pulmonary vascularity is normal. There is mild spondylosis dorsal spine. There is ventral plate and screws lower cervical spine for lower cervical vertebral fusion. XR/XR chest 2V IMPRESSION: Unremarkable chest examination.
[2022-09-29 12:40] LABS: Anion Gap 12 (12-20); Blood Urea Nitrogen 14 mg/dL (9-16); Calcium 9.6 mg/dL (8.4-10.2); Carbon Dioxide 25 mmol/L (22-29); Chloride 104 mmol/L (96-108); Estimated Glomerular Filt Rate 57; Potassium 3.8 mmol/L (3.3-5.1); Sodium 137 mmol/L (135-145)
[2022-09-29 17:23] LABS: Creatinine Urine 256.39 mg/dL
[2022-09-29 17:44] LABS: Microalbumin Urine > 2000.0 mg/L
== END 2022-09-29 10:30 | disposition home or self-care (01) ==
LOC: HO.XRAY 10:29
PROVIDERS: Absent Provider Internal Medicine Hypertension Specialist; PCP Physician Assistant; Visit Provider Physician Assistant
DX: R05.3 Chronic cough (principal); N18.30 Chronic kidney disease, stage 3 unspecified
CPT/HCPCS: 36415; 71046; 80051; 82043; 82310; 82565; 84520

== ENCOUNTER 2022-10-02 12:46 | Outpatient (AMB) | payer OTHER, SELFPAY ==
--- NOTE | 2022-10-02 13:22 | MHC.OFFVIS ---
Intake Intake Visit Reasons: 6 week f/u Intake Note: Pt here for 6 week follow up [employer]umper Required: No Allergies lisinopril [LISINOPRIL] Allergy (Mild, Verified 08/18/22 14:40) COUGHING shellfish derived [SHELLFISH DERIVED] Allergy (Unknown, Verified 08/18/22 14:40) UNKNOWN REACTION-TOLD BY PARENT [facility] Medical History (Updated 10/02/22 @ 13:59 by GRABIEL Kelley) Abnormal finding on MRI of brain Asthma Back pain delivery delivered CKD (chronic kidney disease) Fatty liver GERD (gastroesophageal reflux disease) History of lumbar puncture HTN (hypertension) Hypersomnia Hypothyroid IgA nephropathy Migraine Multiple sclerosis Neck pain Numbness and tingling in both hands Obesity (BMI 30-39.9) Personal history of COVID-19 Snoring Snoring Spinal stenosis in cervical region Tobacco abuse Vitamin D deficiency Surgical History (Updated 07/30/22 @ 08:00 by Randi Byrd) Cervical disc disease History of Status post biopsy of kidney Tubal ligation status Family History Mother Mental health disorder Lung cancer Father Prostate cancer Heart attack, Onset Age: 80 Social History Housing: Apartment Are you a primary rn transitional care to a significant other at home: No Do you presently have visiting nurse or other home services: No Alcohol intake: current Alcohol intake frequency: holidays/special occasions only Patient Tobacco Use Status: Current everyday Tobacco user Tobacco use type: Cigarette Cigarettes Per Day: 8 Years Smoked: 11 e-Cigarette/Vaping Use: Never Used Second Hand Smoke Exposure: Yes service: No Current occupational status: employed 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 Cognitive needs: No Hearing needs: No Vision needs: No Female Reproductive History Menstrual Age of Menarche: 10 Assessment & Plan Assessment & Plan (1) Lumbar radiculopathy: Code(s): M54.16 - Radiculopathy, lumbar region Plan MRs Rice is back to be evaluated again today. She had been calling the office with worsening pain going down her right leg into her calf with numbness of her foot. A repeat MRI done at [facility] showed a fairly significant nerve compression on the right at the L4-5 disc interspace secondary to facet overgrowth and generalized arthritis in the setting of a congenitally narrowed spinal canal. The patient has been doing conservative treatment for this for years including physical therapy and cortisone shots at the [facility] in [place]. She takes Motrin, has been doing regular activity modifications and avoiding back stressors. She has even remained out of work. Her exam is otherwise showing nonfocal exam with intact gait and strength. I reviewed her MRI previously with Dr. Mandel and we agreed that in the setting of the stenosis and the right-sided lateral recess narrowing she would be a good candidate for right L4-5 decompression hemilaminotomy. Pt was given risk and benefits of surgery including but not limited to infection, hematoma , nerve injury,durotomy, weakness,bowel/bladder injury, persistent pain,as well as the option to continue with conservative treatment and patient wishes to proceed with surgery. Pt is aware they should stop their motrin, aspirin 7 days prior to surgery. All questions were answered to the best of our ability. If there is anything about this patients medical history that we have overlooked or concerns you have about us proceeding with surgery we would appreciate any input you can offer. Paco Mandel MD, PhD [facility] Medications: Discontinued tramadol 50 mg PO Q8H 10 days 30 tabs 0RF pain G37.9 - Demyelinating disease of central nervous system, unspecified albuterol sulfate 90 mcg/actuation 1 inh inhalation QID 30 days 8.5 grams 2RF J45.909 - Unspecified asthma, uncomplicated gabapentin 1 tab bid and 3 tabs qhs 150 caps 3RF Coding Level of Care Code Est Pt Level 3 (01116) Diagnoses Lumbar radiculopathy M54.16
== END 2022-10-02 13:32 | disposition home or self-care (01) ==
PROVIDERS: PCP Physician Assistant; Visit Provider Physician Assistant
DX: M54.16 Radiculopathy, lumbar region (principal)
CPT/HCPCS: 99213

== ENCOUNTER → 2022-10-02 12:46 | Outpatient (BNVA) | payer OTHER, SELFPAY | PROVIDERS: PCP Physician Assistant; Visit Provider Physician Assistant ==

== ENCOUNTER 2022-11-17 07:50 | Outpatient (REF) | payer OTHER, SELFPAY ==
[2022-11-17 08:19] LABS: Hematocrit 44.2 % (37.0-47.0); Hemoglobin 14.7 g/dl (12.0-16.0); Mean Corpuscular HGB Conc 33.3 g/dl (31.0-35.0); Mean Corpuscular Hemoglobin 27.5 pg (27.0-33.0); Mean Corpuscular Volume 82.6 fL (80.0-98.0); Mean Platelet Volume 10.9 fL (9.4-12.3); Platelet Count 358 X10*3/uL (160-400); Red Blood Count 5.35 X10*6/uL (4.20-5.50); Red Cell Distribution Width 13.2 % (11.0-16.0)
[2022-11-17 08:59] LABS: Alanine Aminotransferase 45 U/L (0-31); Albumin Level 4.2 g/dL (3.5-5.0); Alkaline Phosphatase 94 U/L (39-117); Anion Gap 13 (12-20); Aspartate Amino Transferase 31 U/L (5-31); Bilirubin Total 0.4 mg/dL (0.0-1.0); Blood Urea Nitrogen 15 mg/dL (9-16); Calcium 9.6 mg/dL (8.4-10.2); Carbon Dioxide 23 mmol/L (22-29); Chloride 108 mmol/L (96-108); Estimated Glomerular Filt Rate 54; Glucose Fasting 106 mg/dL (60-99); Potassium 3.9 mmol/L (3.3-5.1); Sodium 140 mmol/L (135-145); Total Protein 7.7 g/dL (6.5-8.0)
[2022-11-17 09:23] LABS: TSH reflex Free T4 1.61 uIU/mL (0.32-4.0)
== END 2022-11-17 07:51 | disposition home or self-care (01) ==
LOC: HO.LAB 07:50
PROVIDERS: PCP Physician Assistant; Visit Provider Physician Assistant
DX: I10 Essential (primary) hypertension (principal); E03.9 Hypothyroidism, unspecified
CPT/HCPCS: 36415; 80053; 84443; 85027

== ENCOUNTER 2022-11-19 09:00 | Day surgery (SDC) | payer OTHER, SELFPAY ==
[2022-11-04 13:36] VITALS: BMI 34.0
[2022-11-04 13:39] VITALS: BP 136/87; PULSE 75; RESP 16; O2SAT 97
--- NOTE | 2022-11-04 13:45 | HO.ANESPROP2 ---
Documented by User: Montse Mathew NP 11/11/22 14:11 HPI - Anesthesia Eval Consult details Narrative: 47yo F for L4-5 Decompression, 11/19/22 s/p C4-C5 Ant Cerv Discectomy w/ fusion 07/2022 with [facility] [place]/2022 for ? MS - hx of nml LP, MRI 2019 showed some scatter white matter changes - referred to neurosurg and started on gabapentin Nephro eval 06/18/22 for IgA nephopathy - htn meds adjusted, renal function stable No recent illness No CP. Some SOB with exertion. 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 (Acute) Colon cancer screening (Acute) Breast cancer screening (Acute) Snoring (Acute) Back pain of lumbar region with sciatica (Acute) Tobacco dependence (Acute) Chronic cough (Acute) Lumbar radiculopathy (Acute) IgA nephropathy (Acute) Spinal stenosis in cervical region (Acute) Abnormal finding on MRI of brain (Acute) Snoring (Acute) Hypersomnia (Acute) Cervical disc disease (Acute) Numbness and tingling in both hands (Acute) Back pain (Acute) Neck pain (Acute) CKD (chronic kidney disease) (Acute) HTN (hypertension) (Acute) Tobacco abuse (Acute) Fatty liver (Acute) GERD (gastroesophageal reflux disease) (Acute) Obesity (BMI 30-39.9) (Acute) Asthma (Acute) Hypothyroid (Acute) Past Medical History Medical History Hx of transfusion of packed red blood cells Anxiety Depression Personal history of COVID-19 History of lumbar puncture Spinal stenosis in cervical region Abnormal finding on MRI of brain Snoring Hypersomnia Numbness and tingling in both hands Back pain Neck pain Tobacco abuse Fatty liver IgA nephropathy Migraine GERD (gastroesophageal reflux disease) Obesity (BMI 30-39.9) Asthma Vitamin D deficiency delivery delivered Multiple sclerosis CKD (chronic kidney disease) Hypothyroid HTN (hypertension) Family History Family History Mother Mental health disorder Lung cancer Father Prostate cancer Heart attack, Onset Age: 80 Surgical History Surgical History Status post biopsy of kidney History of Cervical disc disease Tubal ligation status Social History Social History Housing: Apartment Are you a primary day care attendant to a significant other at home: No Do you presently have visiting nurse or other home services: No Alcohol intake: current Alcohol intake frequency: holidays/special occasions only Patient Tobacco Use Status: Former Tobacco user Tobacco use type: Cigarette Cigarettes Per Day: 8 Years Smoked: 11 e-Cigarette/Vaping Use: Never Used Second Hand Smoke Exposure: Yes Use of substances other than those prescribed or required for medical reasons: No Have you been hit, kicked, punched, or otherwise hurt by someone within the past year? 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 Cognitive needs: No Hearing needs: No Vision needs: No Meds Allergies Allergy/AdvReac Type Severity Reaction Status Date / Time lisinopril [LISINOPRIL] Allergy Mild COUGHING Verified 08/18/22 14:40 Home Medications Medication Instructions Recorded Confirmed Last Taken Type amlodipine 5 mg tablet 5 mg PO DAILY 05/19/22 11/04/22 11/19/22 History albuterol sulfate 90 mcg/actuation 1 inh inhalation QID PRN Shortness 07/23/22 11/19/22 10/22/22 History aerosol inhaler Of Breath Or Wheezing Lactobacillus acidophilus 10 10,000 mmu cells PO DAILY 11/04/22 11/04/22 11/18/22 History billion cell capsule (Probiotic) cholecalciferol (vitamin D3) 50 50 mcg PO DAILY 11/04/22 11/04/22 10/20/22 History mcg (2,000 unit) capsule (Vitamin D3) Exam Exam Date and Time: November 04, 2022 1345 Height,Weight and Vital Signs: Height 5 ft 4 in Weight 89.811 kg Last Vital Signs Pulse 75 11/04/22 13:39 Resp 16 11/04/22 13:39 BP 136/87 11/04/22 13:39 Pulse Ox 97 11/04/22 13:39 O2 Del Method Room Air 11/04/22 13:39 Pertinent Lab Results Pertinent Lab Results: Laboratory Tests 04/24/22 04/24/22 09:02 09:02 WBC 10.2 Hgb 15.3 Hct 44.9 Plt Count 302 Sodium 139 Potassium 4.2 Chloride 108 Carbon Dioxide 21 L BUN 15 Creatinine 1.00 Narrative Narrative: EKG 07/2022 Vent. Rate : 068 BPM ? ? Atrial Rate : 068 BPM ?? P-R Int : 146 ms? QRS Dur : 094 ms ? ? QT Int : 382 ms ? ? ? P-R-T Axes : 054 019 089 degrees ?? QTc Int : 406 ms ? Normal sinus rhythm Nonspecific T wave abnormality Abnormal ECG When compared with ECG of 22-NOV-2019 13:00, QT has lengthened CT head/brain wo IV con 07/2022 IMPRESSION: 1.? No evidence of acute intracranial hemorrhage or edematous territorial infarction. 2.? Chronic microangiopathy and generalized cerebral volume loss. Airway Mallampati Class: II TM Dist: >3cm Neck ROM: Limited (s/p cspine surgery) Loose/Missing/Broken Teeth: No Heart: rrr Lungs: cta Assessment and Plan Assessment Anesthesia Assessment: Anesthesia Plan Discussed and PAT Visit Documented by User: Sudheer Damian MD 11/19/22 11:09 [facility] Past Medical History Medical History Hx of transfusion of packed red blood cells Anxiety Depression Personal history of COVID-19 History of lumbar puncture Spinal stenosis in cervical region Abnormal finding on MRI of brain Snoring Hypersomnia Numbness and tingling in both hands Back pain Neck pain Tobacco abuse Fatty liver IgA nephropathy Migraine GERD (gastroesophageal reflux disease) Obesity (BMI 30-39.9) Asthma Vitamin D deficiency delivery delivered Multiple sclerosis CKD (chronic kidney disease) Hypothyroid HTN (hypertension) Family History Family History Mother Mental health disorder Lung cancer Father Prostate cancer Heart attack, Onset Age: 80 Family history of problems with anesthesia: No Surgical History Surgical History Status post biopsy of kidney History of Cervical disc disease Tubal ligation status History of Problems with Anesthesia: No Social History Social History Housing: Apartment Are you a primary day care attendant to a significant other at home: No Do you presently have visiting nurse or other home services: No Alcohol intake: current Alcohol intake frequency: holidays/special occasions only Patient Tobacco Use Status: Former Tobacco user Tobacco use type: Cigarette Cigarettes Per Day: 8 Years Smoked: 11 e-Cigarette/Vaping Use: Never Used Second Hand Smoke Exposure: Yes Use of substances other than those prescribed or required for medical reasons: No Have you been hit, kicked, punched, or otherwise hurt by someone within the past year? 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 Cognitive needs: No Hearing needs: No Vision needs: No Meds Allergies Allergy/AdvReac Type Severity Reaction Status Date / Time lisinopril [LISINOPRIL] Allergy Mild COUGHING Verified 08/18/22 14:40 Home Medications Medication Instructions Recorded Confirmed Last Taken Type amlodipine 5 mg tablet 5 mg PO DAILY 05/19/22 11/04/22 11/19/22 History albuterol sulfate 90 mcg/actuation 1 inh inhalation QID PRN Shortness 07/23/22 11/19/22 10/22/22 History aerosol inhaler Of Breath Or Wheezing Lactobacillus acidophilus 10 10,000 mmu cells PO DAILY 11/04/22 11/04/22 11/18/22 History billion cell capsule (Probiotic) cholecalciferol (vitamin D3) 50 50 mcg PO DAILY 11/04/22 11/04/22 10/20/22 History mcg (2,000 unit) capsule (Vitamin D3) Assessment and Plan Final Anesthetic Review Family History of Problems with Anesthesia: No History of Problems with Anesthesia: No NPO: Yes ASA Class: III Final Preanesthetic Review: No Changes in Pt Med Stat, Meds/Allgs Chart Reviewed, Consent Obtained/Reviewed and Anes Risks/Benef Reviewed Patient Risk: Intermediate Procedure Risk: Intermediate Anesthetic Plan Anesthetic Plan: GA Disposition: Standard PACU
[2022-11-19] VITALS (15 sets, daily range): BP systolic 145–160; BP diastolic 75–95; PULSE 72–91; RESP 12–20; TEMP 36.1–36.9; O2SAT 95–99
--- NOTE | ~2022-11-19 | FL_ITS ---
EXAMINATION: XR FLUOROSCOPY WITH IMAGES CLINICAL INFORMATION: L4-L5 decompression. COMPARISON: None available. TECHNIQUE: Fluoroscopy Supervised By: Dr. Bj Mandel. Fluoroscopy Time: 0.0 minutes. Cumulative Dose: 2.77 mGy. DAP: 0.598 Gycm2. Images: 1. FINDINGS: Image demonstrates surgical instruments projecting over the posterior elements at the L4-5 disc space level. FL/FL guidance in OR IMPRESSION: Fluoroscopic guidance for L4-5 decompression.
--- NOTE | 2022-11-19 07:23 | MHC.SHP ---
Pre-Procedural Eval Section A Date of Service: 11/19/22 The patient is an INPATIENT: No Changes since office visit: No Cold of Flu in the past 2 weeks, No New Medical Problems, No Changes in Medication and No Patient answered all questions The History & Physical has been completed within 30 days and I have reviewed it.: Yes Section B Chief Complaint: Radiculopathy, lumbar region Allergies: Allergies Allergy/AdvReac Type Severity Reaction Status Date / Time lisinopril [LISINOPRIL] Allergy Mild COUGHING Verified 08/18/22 14:40 Review of Systems Sugical H&P ROS: Negative: Constitution, Cardiovascular, Respiratory, Neurological, Psychiatric, Hem-Onc, Allergic/Immunologic, Gastrointestinal, Genitourinary, Musculoskeletal, Integumentary, Endocrine and Eyes/Ears/Nose/Throat Exam Surgical H&P Exam: Not Evaluated: HEENT, Not Evaluated: Heart, Not Evaluated: Lungs, Not Evaluated: Extremities, Not Evaluated: Abdomen, Not Evaluated: Skin and Not Evaluated: Neurological Plan Diagnosis/Plan: Unchanged I have reviewed the history and physical and performed a pertinent physical examination on my patient. No changes have occurred unless specified. rigth L4-5 decompression/hemilaminotomy Time Spent With Patient Time: Total time managing care of this patient today _10___ minutes.
[2022-11-19] MEDS: methocarbamoL 750 MG TABLET PO (09:20)
[2022-11-19] MEDS: Gabapentin 300 MG CAPSULE PO (09:20)
[2022-11-19] MEDS: Lactated Ringers 1,000 ML 100 ML IVCONT (09:43)
--- NOTE | 2022-11-19 12:18 | PM.DS ---
DS: Providers Provider Date of Service: 11/19/22 Primary care physician: Donta Bellamy PA-C DS: Summary Time Spent with Patient Time attestation: Total time managing care of this patient today ____ minutes. Discharge coordination time: Less than 30 minutes Quality: Safe Use of Opioids Does Pt have an Active Cancer Diagnosis on the Problem List?: No Quality: Stroke Does the patient have a stroke diagnosis?: No Physical Exam Vital Signs: Vital Signs: Last Vital Signs Temp 97 F 11/19/22 09:27 Pulse 91 11/19/22 09:27 Resp 20 11/19/22 09:27 BP 151/88 H 11/19/22 09:27 Pulse Ox 98 11/19/22 09:27 O2 Del Method Room Air 11/19/22 09:27 BMI result Body Mass Index 34.0 DS: Data Data Completed and Pending Labs on day of discharge: Laboratory Results - last 24 hr 11/19/22 09:34 Blood Type O Positive Antibody Screen NEGATIVE Discharge Plan Discharge Patient Disposition: Home, Self-Care Referrals: Donta Bellamy PA-C [Primary Care Provider] - 1 Week Discharge Medications: New oxycodone 5 mg capsule 5 mg PO Q6H PRN (Reason: moderate-severe pain) Qty: 20 0RF Rx Instructions: Partial Fill upon patient request. Continued lorazepam 0.5 mg tablet 0.5 mg PO DAILY PRN (Reason: anxiety) 30 Days Qty: 15 2RF albuterol sulfate 90 mcg/actuation HFA aerosol inhaler 1 inh inhalation QID PRN (Reason: Shortness Of Breath Or Wheezing) varenicline 1 mg tablet 1 mg PO BID 28 Days Qty: 56 3RF amlodipine 5 mg tablet 5 mg PO DAILY Discontinued oxycodone 5 mg tablet 5 mg PO Q4H PRN (Reason: pain) Qty: 30 0RF Rx Instructions: Partial Fill upon patient request. No Action levothyroxine 150 mcg tablet 150 mcg PO DAILY Qty: 90 2RF cholecalciferol (vitamin D3) [Vitamin D3] 50 mcg (2,000 unit) Capsule 50 mcg PO DAILY Probiotic 10 billion cell Capsule 10,000 mmu cells PO DAILY Discharge Orders: Discharge Order (Routine); Ordered 11/19/22 Ordered By: Thang Oscar Diet: Advance to usual diet Activity on Discharge: As tolerated Activity Restrictions/Additional Instructions: After your spinal surgery we ask you to observe the following restrictions/guidelines: Activity: It is normal to feel some discomfort as you increase your activity, but that will improve with time. We ask you avoid heavy lifting or acitivities that cause pain. As a general rule, 8lbs is a safe limit for lifting right after surgery. Walk as much as you feel comfortable but not to exhaustion. You will feel extra tired the first few days after surgery. Stay well hydrated. It is OK to walk up and down stairs You may return to driving when you are off narcotics (such as vicodin, oxycodone, dilaudid, etc), and you are back to normal functional capacity. If you have any concerns please check with office before driving. Return to work is specific to each patient and each surgery, so please speak with your doctor/PA at first follow up. Please bring paperwork such as FMLA at that time if you need it filled out. Medications: We will give you a short supply of narcotics after surgery (usually one weeks worth). If you need more please call the office but do not use more than prescribed. You will need to give our office 48 hours notice if you need narcotics refilled and we do not fill narcotics on weekends or evenings. If you are on a narcotic, it is a good idea to take a stool softener such as colace or senna to avoid constipation If you take blood thinner such as aspirin, Plavix, Coumadin, Effient, Eliquis etc for conditions such as Afib, DVT, Pulmonary embolus, coronary disease, stents etc please speak with your surgeon about specific details as to when you can resume these medications. You can resume NSAIDs on post op day 1 (eg: Motrin, Naproxen, etc). Follow up: Please call the office, , after surgery to arrange a 3 week follow up for wound check. Wound Care: You may remove your dressing on the first day after surgery. You may leave open to air. Please do not remove the steri strips underneath. they will fall off on their own in one week. IT IS NORMAL FOR THE WOUND TO OOZE OR BE BLOODY FOR A FEW DAYS AFTER SURGERY. IF THIS HAPPENS JUST PLACE NEW DRESSING OVER IT TO AVOID STAINING CLOTHES. You may shower on post op day # 1 We ask that you do not let the water soak the wound. If it does get wet, just towel dry lightly. Please do not scrub your incision or place any type of chemical/ointment on the wound. No tub baths, pools or jacuzzis for one month. If you have any leaking or redness from your wound, or fevers, please call the office.
--- NOTE | 2022-11-19 12:19 | W.PM.OPN ---
Operative Note Operative Note Date of Service: 11/19/22 Narrative: Preoperative Diagnosis: Right L4-5Spinal stenosis/lateral recess stenosis/neural foraminal stenosis Operation: right L4-5 Laminotomy, Partial facetectomy and foraminotomy with use of microscope Consent Informed Consent was obtained for this operation. I have explained the nature, purpose and benefits of the operation. I have discussed the risks and benefit of the operation including possible complications or adverse events with patient/family. Alternative(s) were discussed with the patient with their relative benefits and risks as well as the consequences of not accepting the operation were included in obtaining consent. Surgeon: LIZETH LOFTON MD, PHD Procedure Assisted By: Esa Lawrence Description of Procedure this 38-year-old female suffering from a right lumbar radiculopathy due to L4-5 lateral recess stenosis compressing the right L5 nerve root. The patient was offered a decompression of the nervous structures. The procedure complications were explained. The patient was consented. The patient was brought to the operating room and endotracheally intubated. The patient was turned in prone position on the Ganesh frame. Prep and drape was done followed by timeout. Physician assistant pastry chef provided access. A mid lumbar incision was made followed by release of the paravertebral muscle on the The right side to expose the L4-5 lamina and facet joint. An intraoperative x-ray was obtained to confirm the correct level. The microscope was brought in. I took over the procedure. The high-speed drill was used to do a L4-5 laminotomy. #2 Kerrison was used to further remove the lamina towards the L5 foramen. With a nerve hook the medial wall of the L5 pedicle was palpated as well as the beginning of the L5 foramen. The facet joint was partially drilled down after which with a #2 Kerrison a foraminotomy was done. Finally a foraminotomy Kerrison was used to complete the foraminotomy. A long the nerve root could be easily passed over the course of the L5 nerve root a sign of decompression of the nerve root . The microscope was removed. Hemostasis was done. Incision was closed in 2 layers. Steri-Strips were used to approximate incision. An OpSite with Tegaderm was used to cover the incision. All sponge needle counts were correct. Patient was extubated and transported in stable is to recovery room. Anesthesia: General Estimated Blood Loss (ml): Minimal Duration of Surgery: Under 60 Minutes Postoperative Plan: Discharge to home
[2022-11-19] MEDS: HYDROmorphone HCl 0.5 MG/0.5 ML SYRINGE 0.25 MG IVPUSH ×4 (12:51→13:38)
[2022-11-19] MEDS: oxyCODONE HCl Immed Release 5 MG TABLET PO (12:52)
== END 2022-11-19 14:52 | disposition home or self-care (01) ==
PROVIDERS: PCP Physician Assistant; Visit Provider Neurological Surgery
PROC: (CPT 63047; principal; 2022-11-19 11:00)
DX: M48.061 Spinal stenosis, lumbar region without neurogenic claudication (principal); M54.16 Radiculopathy, lumbar region; F17.210 Nicotine dependence, cigarettes, uncomplicated; N18.9 Chronic kidney disease, unspecified; I12.9 Hypertensive chronic kidney disease with stage 1 through stage 4 chronic kidney disease, or unspecified chronic kidney disease; J45.909 Unspecified asthma, uncomplicated; G35 Multiple sclerosis; R20.0 Anesthesia of skin; R20.2 Paresthesia of skin; Z79.899 Other long term (current) drug therapy; Z88.8 Allergy status to other drugs, medicaments and biological substances; Z98.890 Other specified postprocedural states; Z86.16 Personal history of COVID-19
CPT/HCPCS: 63047; 86850; 86900; 86901; J0131; J0690; J1100; J1170; J2250; J2371; J2405; J3010

== ENCOUNTER → 2022-11-19 09:00 | Outpatient (BNV) | payer OTHER, SELFPAY | PROVIDERS: PCP Physician Assistant; Visit Provider Neurological Surgery | DX: M99.63 Osseous and subluxation stenosis of intervertebral foramina of lumbar region (principal); M54.16 Radiculopathy, lumbar region | CPT/HCPCS: 63047 ==

== ENCOUNTER 2022-12-11 14:18 | Outpatient (AMB) | payer OTHER, SELFPAY ==
--- NOTE | 2022-12-11 15:21 | HO.SPINEOV ---
Intake Intake Visit Reasons: 1st post op Intake Note: Ms. Solomon is here today for her 1st post-op visit. Disc of MRI was returned to her. Plant Guard Required: No Allergies lisinopril [LISINOPRIL] Allergy (Mild, Verified 08/18/22 14:40) COUGHING Assessment & Plan Assessment & Plan (1) Lumbar radiculopathy: Code(s): M54.16 - Radiculopathy, lumbar region Plan Ms Solomon is returning today in follow-up. She had a L4-5 decompression and has been doing very well. Her incision is healed up nicely. She is due to go back to work at the end of the month. I gave her note states she did not have to lift more than 20 lb. We discussed activity guidelines, restrictions expectations after lumbar decompression. We will see her back on an as-needed basis. Paco Mandel MD, PhD [facility] Coding Level of Care Code Global (95593) Diagnoses Lumbar radiculopathy M54.16
== END 2022-12-11 15:47 | disposition home or self-care (01) ==
PROVIDERS: PCP Physician Assistant; Visit Provider Physician Assistant
DX: M54.16 Radiculopathy, lumbar region (principal)
CPT/HCPCS: 99024

== ENCOUNTER → 2022-12-11 14:18 | Outpatient (BNVA) | payer OTHER, SELFPAY | PROVIDERS: PCP Physician Assistant; Visit Provider Physician Assistant ==

== ENCOUNTER 2022-12-14 10:56 | Outpatient (AMB) | payer OTHER, SELFPAY ==
--- NOTE | 2022-12-14 11:16 | MHC.PC.OV ---
Vital Signs 12/14/22 11:21 Height 5 ft 4 in Weight 203 lb BMI 34.8 BP 148/86 H Blood Pressure Location Lt brachial Position Sitting Respiration 17 Pulse 90 Pulse Source Pulse Oximeter Pulse Oximetry (%) 96 Oxygen Delivery Method Room Air Intake Visit Reasons: f/u hTN/ Hypothyroid Order Editor Required: No Accompanied by: Self / Same As Patient Allergies lisinopril [LISINOPRIL] Allergy (Mild, Verified 12/14/22 11:34) COUGHING Medication List - Last Reconciled 12/14/22 by Donta Bellamy PA-C albuterol sulfate 90 mcg/actuation 1 inh inhalation QID PRN amlodipine 5 mg PO DAILY cholecalciferol (vitamin D3) (Vitamin D3) 50 mcg PO DAILY Lactobacillus acidophilus (Probiotic) 10,000 mmu cells PO DAILY levothyroxine 150 mcg PO DAILY lorazepam 0.5 mg PO DAILY PRN 30 days oxycodone 5 mg PO Q6H PRN 7 days varenicline 1 mg PO BID 28 days Tobacco use date assessed: 07/21/22 Dental Screening Dental Screen Date: 12/14/22 Did you have a dental visit in the last 12 months?: No Did you have a dental problem in the last 6 months where you did not have access to dental care?: No Was dental information given to patient?: Patient has dentist HPI f/u hTN/ Hypothyroid HPI Details Patient is a 47-year-old female here today for a follow-up visit.. Patient has multiple medical diagnoses including hypertension, hypersomnia, cervical disc disease, demyelinating brain disease, IGa nephropathy, generalized anxiety disorder, tobacco use disorder, asthma. Patient recently undergone back surgery now recovering. --concern> has noted some weight gain since last office visit. Could be multifactorial with perhaps being perimenopausal, quit smoking and has been more sedentary due to her recent surgeries. .. Has followed up with a neurologist about her demyelinating changes on MRI. Had tried to do a sleep study though was not able sleep at the time. .. Hypertension: Blood pressure elevated today in office. She is willing to increase her dose of amlodipine to 10 mg.. .. Former smoker --> stopped smoking in May 2022.- recent chest x-ray in with no evidence pulmonary disease. .. Hypothyroidism: Continue to follow TSH has been clinically and chemically euthyroid. Continues on levothyroxine 150 mcg. Laboratory Tests 04/24/22 05/09/22 09:02 07:00 RBC 5.28 Creatinine 1.00 ALT 26 TSH 0.91 Ur 24 Hour Volume 1050 Ur Creatinine mg/d L 112.89 Ur Total Protein 2 4 Hr 861 H PFSH Medical History Hx of transfusion of packed red blood cells Anxiety Depression Personal history of COVID-19 History of lumbar puncture Spinal stenosis in cervical region Abnormal finding on MRI of brain Snoring Hypersomnia Numbness and tingling in both hands Back pain Neck pain Tobacco abuse Fatty liver IgA nephropathy Migraine GERD (gastroesophageal reflux disease) Obesity (BMI 30-39.9) Asthma Vitamin D deficiency delivery delivered Multiple sclerosis CKD (chronic kidney disease) Hypothyroid HTN (hypertension) Surgical History Status post biopsy of kidney History of Cervical disc disease Tubal ligation status Family History Mother Mental health disorder Lung cancer Father Prostate cancer Heart attack, Onset Age: 80 Social History Housing: Apartment Are you a primary career development facilitator to a significant other at home: No Do you presently have visiting nurse or other home services: No Alcohol intake: current Alcohol intake frequency: holidays/special occasions only Patient Tobacco Use Status: Former Tobacco user Tobacco use type: Cigarette Cigarettes Per Day: 8 Years Smoked: 11 e-Cigarette/Vaping Use: Never Used Second Hand Smoke Exposure: Yes Advance Directives Date on File: 07/31/22 service: No Current occupational status: employed 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 Cognitive needs: No Hearing needs: No Vision needs: No Female Reproductive History Menstrual Age of Menarche: 10 Questionnaire Thrive Questionnaire Date Thrive assessed: 07/21/22 JASPER-7 AMB Questionnaire JASPER-7 Date JASPER - 7 assessed: 07/21/22 Source: Developed by Drs. Jose Martin, Candelaria Brown, Milton Mack and colleagues, with an educational lauren from [employer]. Review of Systems Const Denies headache(s) Eyes Denies loss of vision ENT Denies vertigo, Denies dizziness, Denies headache(s) and Denies sore throat Card Denies chest pain, Denies leg edema and Denies lightheadedness Resp Denies cough, Denies hemoptysis and Denies wheezing GI Denies abdominal pain, Denies melena, Denies constipation, Denies diarrhea and Denies vomiting Denies urinary frequency, Denies dysuria and Denies urinary urgency Musc Denies arthralgias, Denies joint swelling, Denies numbness and Denies tingling Neuro Denies Abnormal speech present, Denies behavioral changes, Denies vertigo, Denies dizziness, Denies headache(s), Denies loss of vision, Denies memory loss, Denies numbness and Denies tingling Psych Denies anxiety, Denies behavioral changes, Denies depression, Denies memory loss and Denies panic attacks Mark/Lymph Denies easy bleeding and Denies easy bruising Aller/Immun Denies wheezing Physical exam (Primary Care) Vital Signs: Last Vital Signs Pulse 90 12/14/22 11:21 Resp 17 12/14/22 11:21 BP 148/86 H 12/14/22 11:21 Pulse Ox 96 12/14/22 11:21 Oxygen Delivery Method Room Air 12/14/22 11:21 BMI result Body Mass Index 34.8 BMI Assessment/Plan discussion: High Tobacco/Smoking Status: Tobacco use Status Tobacco use date assessed 07/21/22 12/14/22 11:18 Patient Tobacco Use Status Former Tobacco user 12/14/22 11:18 Tobacco use type Cigarette 12/14/22 11:18 e-Cigarette/Vaping Use Never Used 12/14/22 11:18 Thrive Assessment: Date of Thrive Assessment Date Thrive assessed 07/21/22 12/14/22 11:18 Const Other: Obese General: healthy appearing, no acute distress, alert and awake Nutritional Appearance: well nourished Orientation/consciousness: oriented to person, oriented to place and oriented to time HENMT Ears: TM's normal bilaterally General nose exam: Normal nasal mucous membranes and turbinates present Eyes Conjunctivae: conjunctivae normal Sclerae: sclerae normal Pupils: Equal, round and reactive pupils present Neck Neck: Yes no lymphadenopathy and Yes no JVD Thyroid: Thyroid normal Carotids: no bruits Resp Effort & Inspection: normal respiratory effort and not tachypneic Auscultation: no crackles, no rales, no rhonchi and no wheezes Cardio Rate: regular rate Rhythm: regular rhythm Heart sounds: no murmurs and normal S1 and S2 GI Palpation (GI): Soft to palpation, nontender, no hepatomegaly and no splenomegaly Auscultation: normal bowel sounds Skin General skin exam: no rashes or lesions noted and dry skin Neuro General: oriented to person, oriented to place and oriented to time Cranial nerves: Yes Equal, round and reactive pupils present Speech: No Abnormal speech present Gait exam (Neuro): Normal gait present Motor exam (neuro): no tremor noted Extrem Right upper extremity: full ROM Left upper extremity: full ROM Right lower extremity: full ROM; no edema Left lower extremity: full ROM; no edema Psych Mental Status: mental status grossly normal Speech and movement: Normal speech and movement present Affect: normal affect Attitude: cooperative Thought process: Normal thought process present Immunizations Boostrix Tdap 2.5 Lf unit-8 mcg-5 Lf/0.5 mL intramuscular syringe Performing Provider: Donta Bellamy PA-C Performing Location: [facility] Administered by: Mirtha Barraza CMA on 12/14/22 12:03 Dose Route Admin Location Dispensed Lot Number Expiration Date NDC [employer] Public [employer] Manager 0.5 mL IM Left Deltoid 0.5 mL [id number] 02/10/25 08101-896-48 [employer] VIS Given Date VIS Provided VIS Publication Date 12/14/22 Single Vaccine 20 Eligibility Eligibility Date Funding Source Not [facility] Eligible 12/14/22 Private Assessment and Plan Assessment & Plan (1) Demyelinating changes in brain: Code(s): G37.9 - Demyelinating disease of central nervous system, unspecified Plan: Unclear etiology to patient's white matter disease. It is followed by neurologist though no formal diagnosis at this time. (2) HTN (hypertension): Code(s): I10 - Essential (primary) hypertension Qualifiers: Hypertension type: primary hypertension Qualified Code(s): I10 - Essential (primary) hypertension Plan: Blood pressure today in office elevated. Will increase her amlodipine dose for better blood pressure control. Goal blood pressure to be below 140/90 (3) Hypothyroid: Code(s): E03.9 - Hypothyroidism, unspecified Qualifiers: Hypothyroidism type: unspecified Qualified Code(s): E03.9 - Hypothyroidism, unspecified Plan: Patient's most recent TSH has been stable. Continues on levothyroxine 150 mcg with good effect. (4) IgA nephropathy: Code(s): N02.8 - Recurrent and persistent hematuria with other morphologic changes Plan: Continues to follow Nephrology, unclear etiology to patient's protein urea. Continues on losartan now at 100 mg. (5) Generalized anxiety disorder: Code(s): F41.1 - Generalized anxiety disorder Plan: Patient's JASPER-7 score positive for mild to moderate anxiety which has been an existing condition for her. She does use lorazepam on a p.r.n. basis with good effect. She has been suffering with more anxiety and depression and is interested in starting medication to help her mental health. (6) Impaired glucose metabolism: Code(s): R73.09 - Other abnormal glucose Plan: Noted most recent fasting blood sugar at 122. Advised on lifestyle modifications reducing carbohydrates in her diet and trying to be more physically active if possible to reduce her weight. Orders: Orders Microalbumin, Random (w Creat) Today I10 - Essential (primary) hypertension Hemoglobin A1c Today R73.09 - Other abnormal glucose TDaP Immunization Today R73.09 - Other abnormal glucose, Z23 - Encounter for immunization Vitamin B12 and Folate Today E53.8 - Deficiency of other specified B group vitamins, N18.2 - Chronic kidney disease, stage 2 (mild) Vitamin D 25-OH Total Today N18.2 - Chronic kidney disease, stage 2 (mild) Comprehensive [place]. Panel Fast Today I10 - Essential (primary) hypertension Complete Blood Count no Diff Today I10 - Essential (primary) hypertension Medications: New bupropion HCl (Wellbutrin SR) 100 mg PO DAILY 30 days 30 tabs 3RF F41.1 - Generalized anxiety disorder amlodipine 10 mg PO DAILY 90 days 90 tabs 1RF I10 - Essential (primary) hypertension Refilled lorazepam 0.5 mg PO DAILY 30 days PRN 15 tabs 2RF anxiety Discontinued varenicline Discontinued Reason: Change Referral Type 1 mg PO BID 28 days 56 tabs 3RF F17.200 - Nicotine dependence, unspecified, uncomplicated Coding Level of Care Code Est Pt Level 4 (90362) Diagnoses Demyelinating changes in brain G37.9 Primary hypertension I10 Hypertension type: primary hypertension Hypothyroidism, unspecified type E03.9 Hypothyroidism type: unspecified IgA nephropathy N02.8 Generalized anxiety disorder F41.1 Impaired glucose metabolism R73.09
[2022-12-14 11:21] VITALS: BP 148/86; PULSE 90; RESP 17; O2SAT 96; BMI 34.8
== END 2022-12-14 12:09 | disposition home or self-care (01) ==
PROVIDERS: PCP Physician Assistant; Visit Provider Physician Assistant
DX: G37.9 Demyelinating disease of central nervous system, unspecified (principal); I10 Essential (primary) hypertension; E03.9 Hypothyroidism, unspecified; N02.8 Recurrent and persistent hematuria with other morphologic changes; F41.1 Generalized anxiety disorder; R73.09 Other abnormal glucose; Z23 Encounter for immunization
CPT/HCPCS: 90471; 90715; 99214

== ENCOUNTER 2022-12-18 08:00 | Outpatient (AMB) | payer OTHER, SELFPAY ==
--- NOTE | 2022-12-18 08:14 | A.OFFVIS_ITS ---
Intake Vital Signs 12/18/22 08:21 Height 5 ft 4 in BP 134/90 H Blood Pressure Location Rt brachial Position Sitting Respiration 16 Pulse 88 Pulse Source Pulse Oximeter Pulse Oximetry (%) 97 Oxygen Delivery Method Room Air Intake Visit Reasons: follow up Intake Note: Allergies lisinopril [LISINOPRIL] Allergy (Mild, Verified 12/18/22 08:19) COUGHING HPI HPI Comments History of Present Illness Details 47y/o female comes for follow up. HOme s leep test was inconclusive MRI C spine shows severe deg changes in C4-5 levels with severe spinal stenosis. SHe had surgery in her neck in July 2022 and recovered well. she still has neck movement restriction. SHe had back surgery 1 month ago - doing good. she gained weight and c/o cognitive issues and hypersomnia Previous history- she reports numbness and tingling in bilateral hands, intermittent weakness in the legs and feels off balance , chronic generalized pain. It started about 2 years ago . she was seen by Dr. Ma who did some evaluations including lumbar puncture but she did not have a definitive diagnosis. MRI brain in 2019 showed some scattered white matter changes without enhancement. she denies diplopia, loss of vision, any transient weakness , ataxia etc . she denies falls. she has neck and back with shooting pain to toes. she has IGA nephropathy and has chronic kidney disease and is followed up by renal. she reports nocturia, frequent arousals and hypersomnia. [facility] Medical History (Updated 12/18/22 @ 08:36 by Brenda Mckinnon MD) Cognitive change Hx of transfusion of packed red blood cells Anxiety Depression Personal history of COVID-19 History of lumbar puncture Spinal stenosis in cervical region Abnormal finding on MRI of brain Snoring Hypersomnia Numbness and tingling in both hands Back pain Neck pain Tobacco abuse Fatty liver IgA nephropathy Migraine GERD (gastroesophageal reflux disease) Obesity (BMI 30-39.9) Asthma Vitamin D deficiency delivery delivered Multiple sclerosis CKD (chronic kidney disease) Hypothyroid HTN (hypertension) Surgical History (Updated 12/18/22 @ 08:34 by Brenda Mckinnon MD) Status post biopsy of kidney History of Cervical disc disease Tubal ligation status Family History Mother Mental health disorder Lung cancer Father Prostate cancer Heart attack, Onset Age: 80 Social History Housing: Apartment Are you a primary healthcare account manager to a significant other at home: No Do you presently have visiting nurse or other home services: No Alcohol intake: current Alcohol intake frequency: holidays/special occasions only Patient Tobacco Use Status: Former Tobacco user Tobacco use type: Cigarette Cigarettes Per Day: 8 Years Smoked: 11 e-Cigarette/Vaping Use: Never Used Second Hand Smoke Exposure: Yes Advance Directives Date on File: 07/31/22 service: No Current occupational status: employed 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 Cognitive needs: No Hearing needs: No Vision needs: No Female Reproductive History Menstrual Age of Menarche: 10 Physical Exam Vital Signs: Last Vital Signs Pulse 88 12/18/22 08:21 Resp 16 12/18/22 08:21 BP 134/90 H 12/18/22 08:21 Pulse Ox 97 12/18/22 08:21 Oxygen Delivery Method Room Air 12/18/22 08:21 Const General: cooperative and comfortable Nutritional Appearance: obese Orientation/consciousness: patient oriented x3 HEENT Head: Yes normal to inspection and Yes normocephalic Neck Other: tightness and tenderness in the left trapezius Neck: Yes normal visual inspection Neuro Other: gait- antalgic General: patient oriented x3, tone normal, moves all extremities and no focal motor deficits Cranial nerves: Yes Facial sensation intact/muscles of mastication intact, Yes Nystagmus not present, Yes Normal facial strength present, Yes Midline tongue present, Yes Symmetric palate elevation present and Yes Ability to bilaterally elevate shoulders present Cognition (Neuro): normal cognition Gait exam (Neuro): Antalgic gait present Motor exam (neuro): 5/5 motor strength present throughout and Normal motor muscle tone present throughout Deep tendon reflexes (DTR's): Right triceps reflex intensity grade: 2+, Left triceps reflex intensity grade: 2+, Rt Biceps (C5, C6): 2+, Left biceps reflex intensity grade: 2+, Right brachioradialis reflex intensity grade: 2+, Left brachioradialis reflex intensity grade: 2+, Right patellar reflex intensity grade: 3+, Left patellar reflex intensity grade: 3+, Right ankle reflex intensity grade: 2+ and Left ankle reflex intensity grade: 2+ Coordination: [id number] test normal Assessment & Plan Assessment & Plan (1) Back pain: Comment: better since L4-5 decompression surgery Code(s): M54.9 - Dorsalgia, unspecified (2) Cervical disc disease: Comment: surgery July 2022 Code(s): M50.90 - Cervical disc disorder, unspecified, unspecified cervical region (3) Insomnia: Code(s): G47.00 - Insomnia, unspecified (4) Hypersomnia: Code(s): G47.10 - Hypersomnia, unspecified (5) Spinal stenosis in cervical region: Code(s): M48.02 - Spinal stenosis, cervical region Plan Home sleep test to r/o sleep apnea- normal but patient says she did not sleep. I will schedule her for an in lab sleep study for a more detailed evaluation. Reviewed MRI Brain images from 2019 - will consider repeat eval PT for gait and back Orders: Orders RT PSG in-lab sleep study Today R41.89 - Other symptoms and signs involving cognitive functions and awareness PT Evaluation and Treatment Today M54.16 - Radiculopathy, lumbar region, M54.40 - Lumbago with sciatica, unspecified side Coding Level of Care Code Est Pt Level 4 (36071) Diagnoses Back pain M54.9 Cervical disc disease M50.90 Insomnia G47.00 Hypersomnia G47.10 Spinal stenosis in cervical region M48.02
[2022-12-18 08:21] VITALS: BP 134/90; PULSE 88; RESP 16; O2SAT 97
== END 2022-12-18 08:41 | disposition home or self-care (01) ==
PROVIDERS: PCP Physician Assistant; Visit Provider Psychiatry & Neurology Neurology
DX: M54.9 Dorsalgia, unspecified (principal); M50.90 Cervical disc disorder, unspecified, unspecified cervical region; G47.00 Insomnia, unspecified; G47.10 Hypersomnia, unspecified; M48.02 Spinal stenosis, cervical region
CPT/HCPCS: 99214

== ENCOUNTER → 2022-12-18 08:00 | Outpatient (BNVA) | payer OTHER, SELFPAY | PROVIDERS: PCP Physician Assistant; Visit Provider Psychiatry & Neurology Neurology ==

== ENCOUNTER 2023-01-11 09:11 | Outpatient (REF) | payer OTHER, SELFPAY ==
[2023-01-11 09:52] LABS: Hematocrit 45.7 % (37.0-47.0); Mean Corpuscular HGB Conc 32.8 g/dl (31.0-35.0); Mean Corpuscular Hemoglobin 27.1 pg (27.0-33.0); Mean Corpuscular Volume 82.6 fL (80.0-98.0); Platelet Count 349 X10*3/uL (160-400); Red Blood Count 5.53 X10*6/uL (4.20-5.50); Red Cell Distribution Width 13.2 % (11.0-16.0); White Blood Count 9.8 X10*3/uL (4.8-10.8)
[2023-01-11 10:02] LABS: Estimated Average Glucose 105 mg/dL; Hemoglobin A1c % 5.3 % (<6.0)
[2023-01-11 10:36] LABS: Alanine Aminotransferase 40 U/L (0-31); Albumin Level 4.4 g/dL (3.5-5.0); Alkaline Phosphatase 106 U/L (39-117); Anion Gap 14 (12-20); Aspartate Amino Transferase 27 U/L (5-31); Bilirubin Total 0.3 mg/dL (0.0-1.0); Blood Urea Nitrogen 16 mg/dL (9-16); Calcium 9.8 mg/dL (8.4-10.2); Carbon Dioxide 24 mmol/L (22-29); Chloride 105 mmol/L (96-108); Estimated Glomerular Filt Rate 46; Glucose Fasting 104 mg/dL (60-99); Potassium 3.8 mmol/L (3.3-5.1); Sodium 139 mmol/L (135-145); Total Protein 8.1 g/dL (6.5-8.0)
[2023-01-11 10:53] LABS: Vitamin D 25-OH Total 79.6 ng/mL (>30)
[2023-01-11 11:04] LABS: Folate 12.1 ng/mL (> or = 4.0); Vitamin B12 622 pg/mL (200-900)
[2023-01-11 11:11] LABS: Creatinine Urine 386.73 mg/dL
[2023-01-11 11:21] LABS: Microalbum/Creatinine Ratio Ur 517.1 ug/mg cr (<30); Microalbumin Urine > 2000.0 mg/L
== END 2023-01-11 09:12 | disposition home or self-care (01) ==
LOC: HO.LAB 09:11
PROVIDERS: PCP Physician Assistant; Visit Provider Physician Assistant
DX: I12.9 Hypertensive chronic kidney disease with stage 1 through stage 4 chronic kidney disease, or unspecified chronic kidney disease (principal); N18.2 Chronic kidney disease, stage 2 (mild); R73.09 Other abnormal glucose; E53.8 Deficiency of other specified B group vitamins; Z86.39 Personal history of other endocrine, nutritional and metabolic disease
CPT/HCPCS: 36415; 80053; 82043; 82306; 82570; 82607; 82746; 83036; 85027

== ENCOUNTER → 2023-01-22 00:03 | Outpatient (BNV) | payer OTHER, SELFPAY | PROVIDERS: PCP Physician Assistant; Visit Provider Psychiatry & Neurology Neurology | DX: G47.33 Obstructive sleep apnea (adult) (pediatric) (principal) | CPT/HCPCS: 95810 ==

== ENCOUNTER → 2023-01-22 19:30 | Outpatient (REF) | payer OTHER, SELFPAY | LOC: HO.SL 19:30 | PROVIDERS: PCP Physician Assistant; Visit Provider Psychiatry & Neurology Neurology | DX: R41.89 Other symptoms and signs involving cognitive functions and awareness (principal) | CPT/HCPCS: 95810 ==

== ENCOUNTER 2023-02-01 16:51 | Emergency (ER) | payer OTHER, SELFPAY ==
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
[2023-02-01 17:10] VITALS: BP 168/95; PULSE 99; RESP 18; TEMP 37.2; O2SAT 99; BMI 35.3
[2023-02-01] MEDS: Cyclobenzaprine HCl 10 MG TABLET PO (19:01)
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
[2023-02-01 19:47] VITALS: BP 138/96; PULSE 96; RESP 20; O2SAT 96
--- NOTE | 2023-02-01 19:47 | PC.NURSE ---
pt denies relief from flexeril. pain 9/10 primarily in neck and back. CT results pending. VSS - plan of care ongoing
[2023-02-01] MEDS: oxyCODONE HCl Immed Release 5 MG TABLET PO (22:03)
== END 2023-02-01 22:12 | disposition home or self-care (01) ==
PROVIDERS: Emergency Provider Emergency Medicine; PCP Physician Assistant
DX: Z04.1 Encounter for examination and observation following transport accident (principal); M54.12 Radiculopathy, cervical region
CPT/HCPCS: 70450; 72125; 99284

== ENCOUNTER 2023-02-03 13:57 | Outpatient (AMB) | payer OTHER, SELFPAY ==
[2023-02-03 13:59] VITALS: BP 132/80; PULSE 99; O2SAT 99; BMI 35.2
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
== END 2023-02-03 14:40 | disposition home or self-care (01) ==
PROVIDERS: PCP Physician Assistant; Visit Provider Nurse Practitioner Family
DX: M54.12 Radiculopathy, cervical region (principal); M54.16 Radiculopathy, lumbar region; V89.2XXA Person injured in unspecified motor-vehicle accident, traffic, initial encounter
CPT/HCPCS: 99213

== ENCOUNTER 2023-02-05 13:49 | Outpatient (AMB) | payer OTHER, SELFPAY ==
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
== END 2023-02-05 14:21 | disposition home or self-care (01) ==
PROVIDERS: PCP Physician Assistant; Visit Provider Physician Assistant
DX: M54.2 Cervicalgia (principal); V89.2XXA Person injured in unspecified motor-vehicle accident, traffic, initial encounter
CPT/HCPCS: 99214

== ENCOUNTER → 2023-02-05 13:49 | Outpatient (BNVA) | payer OTHER, SELFPAY | PROVIDERS: PCP Physician Assistant; Visit Provider Physician Assistant | DX: M54.9 Dorsalgia, unspecified (principal); Z98.890 Other specified postprocedural states | CPT/HCPCS: 99212 ==

== ENCOUNTER 2023-02-11 07:51 | Outpatient (AMB) | payer OTHER, SELFPAY ==
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
[2023-02-11 08:07] VITALS: BP 130/86; BMI 34.3
== END 2023-02-11 08:51 | disposition home or self-care (01) ==
PROVIDERS: Visit Provider Physician Assistant
DX: Z00.00 Encounter for general adult medical examination without abnormal findings (principal); M54.12 Radiculopathy, cervical region; I12.9 Hypertensive chronic kidney disease with stage 1 through stage 4 chronic kidney disease, or unspecified chronic kidney disease; N18.2 Chronic kidney disease, stage 2 (mild); J45.20 Mild intermittent asthma, uncomplicated; F17.200 Nicotine dependence, unspecified, uncomplicated; R13.13 Dysphagia, pharyngeal phase; Z12.11 Encounter for screening for malignant neoplasm of colon
CPT/HCPCS: 99396; 99406

== ENCOUNTER 2023-02-17 14:07 | Outpatient (AMB) | payer OTHER, SELFPAY ==
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
[2023-02-17 14:38] VITALS: BP 100/72; PULSE 96; TEMP 36.1; O2SAT 100; BMI 34.0
== END 2023-02-17 15:13 | disposition home or self-care (01) ==
PROVIDERS: PCP Physician Assistant; Visit Provider Physician Assistant
DX: R29.898 Other symptoms and signs involving the musculoskeletal system (principal)
CPT/HCPCS: 99214

== ENCOUNTER 2023-02-17 15:35 | Emergency (ER) | payer OTHER, SELFPAY ==
--- NOTE | ~2023-02-17 | CT_ITS ---
EXAMINATION: CT LUMBAR SPINE WITHOUT CONTRAST CLINICAL INFORMATION: Right lower extremity weakness. Prior back surgery. COMPARISON: MRI dated 07/26/2015. TECHNIQUE: Multidetector helical imaging acquired in the axial plane with generation of reformatted acquisitions. This CT examination was performed using dose optimization techniques as appropriate, variously including the following: *Automated exposure control *Adjustment of mA and/or kV according to patient size (this includes techniques or standardized protocols for targeted exams where dose is matched to indication/reason for exam; i.e. extremities or head) *Use of iterative reconstruction technique DLP; 430 mGy-cm. FINDINGS: No fractures are visible. At the L4-L5 level, there is advanced facet arthropathy and thickening of the ligamentum flavum with a broad-based disc bulge resulting in severe central canal stenosis. Right-sided laminectomy defect visible. Bulging disc and facet spurring ivhm-mc-wbwoknfznw encroach upon the neural foramina. At the L3-L4 level, there is hypertrophic facet arthropathy with a mild disc bulge and ygjt-is-kwjvfbwl central canal stenosis with qfnc-sh-bnkiajel foraminal narrowing, more so on the right side. No significant subluxations are seen in the lumbar spine. Mild leftward lumbar spinal curvature noted. The L1-L2 and L2-L3 disc spaces are relatively normal with mild facet arthrosis. At the L5-S1 level, there is a broad-based posterior disc bulge/protrusion with moderate facet arthropathy contributing to smrc-de-psdmkddf central canal stenosis and foraminal narrowing. The paraspinal soft tissues are unremarkable. Mild sigmoid colonic diverticulosis partially visualized. There are mild degenerative changes of the sacroiliac joints with vacuum phenomenon. CT/CT lumbar spine wo IV con IMPRESSION: 1. Severe facet arthropathy at the L4-L5 level with a disc bulge and thickening of the ligamentum flavum resulting in severe central canal stenosis. Kwhv-ep-rtisrvjd foraminal narrowing. 2. Hypertrophic facet arthropathy and disc bulge at the L3-L4 level resulting in hqpn-fn-tndjbdek central canal stenosis and foraminal narrowing. 3. Posterior disc bulge/protrusion and moderate facet degeneration at L5-S1, contributing to gopi-vx-fjsytctf central canal stenosis and foraminal encroachment.
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
[2023-02-17 16:15] VITALS: BP 132/76; PULSE 82; RESP 18; TEMP 36.7; O2SAT 96; BMI 34.0
[2023-02-17] MEDS: predniSONE 20 MG TABLET PO (17:48)
[2023-02-17] MEDS: Cyclobenzaprine HCl 5 MG TABLET PO (17:48)
[2023-02-17] MEDS: Ketorolac Tromethamine 15 MG/ML VIAL IM (17:49)
[2023-02-17 17:52] VITALS: RESP 16
[2023-02-17 19:48] VITALS: BP 129/76; PULSE 74; RESP 16; TEMP 36.6
[2023-02-17 19:49] VITALS: BP 133/92; PULSE 66; RESP 16; TEMP 36.7; O2SAT 100
== END 2023-02-17 19:50 | disposition home or self-care (01) ==
PROVIDERS: Emergency Provider Internal Medicine; PCP Physician Assistant
DX: R20.2 Paresthesia of skin (principal); R53.1 Weakness; I12.9 Hypertensive chronic kidney disease with stage 1 through stage 4 chronic kidney disease, or unspecified chronic kidney disease; N18.9 Chronic kidney disease, unspecified; F17.210 Nicotine dependence, cigarettes, uncomplicated; Z79.899 Other long term (current) drug therapy
CPT/HCPCS: 72131; 96372; 99284; J1885

== ENCOUNTER 2023-02-23 14:53 | Outpatient (AMB) | payer OTHER, SELFPAY ==
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
== END 2023-02-23 15:40 | disposition home or self-care (01) ==
PROVIDERS: PCP Physician Assistant; Visit Provider Physician Assistant
DX: R29.898 Other symptoms and signs involving the musculoskeletal system (principal)
CPT/HCPCS: 99214

== ENCOUNTER → 2023-02-23 14:53 | Outpatient (BNVA) | payer OTHER, SELFPAY | PROVIDERS: PCP Physician Assistant; Visit Provider Physician Assistant | DX: N02.8 Recurrent and persistent hematuria with other morphologic changes (principal); R29.898 Other symptoms and signs involving the musculoskeletal system | CPT/HCPCS: 99212 ==

== ENCOUNTER 2023-02-23 15:44 | Outpatient (AMB) | payer OTHER, SELFPAY ==
[2023-02-23 15:50] VITALS: BP 130/70; PULSE 83; O2SAT 97; BMI 34.1
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
== END 2023-02-23 16:12 | disposition home or self-care (01) ==
PROVIDERS: PCP Physician Assistant; Visit Provider Internal Medicine Hypertension Specialist
DX: N02.8 Recurrent and persistent hematuria with other morphologic changes (principal)
CPT/HCPCS: 99214

== ENCOUNTER 2023-03-04 10:34 | Outpatient (AMB) | payer OTHER, SELFPAY ==
[2023-03-04 10:35] VITALS: BP 124/70; PULSE 80; O2SAT 97; BMI 33.8
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
== END 2023-03-04 11:56 | disposition home or self-care (01) ==
PROVIDERS: PCP Physician Assistant; Visit Provider Physician Assistant
DX: M54.16 Radiculopathy, lumbar region (principal)
CPT/HCPCS: 99214

== ENCOUNTER 2023-03-09 16:15 | Outpatient (REF) | payer OTHER, SELFPAY | END 2023-03-09 16:16 | disposition home or self-care (01) | LOC: HO.MAMMO 16:15 | PROVIDERS: PCP Physician Assistant; Visit Provider Physician Assistant | DX: Z12.31 Encounter for screening mammogram for malignant neoplasm of breast (principal) | CPT/HCPCS: 77063; 77067 ==

== ENCOUNTER → 2023-03-09 16:30 | Outpatient (BNV) | payer OTHER, SELFPAY | PROVIDERS: PCP Physician Assistant; Visit Provider Radiology Diagnostic Radiology | DX: Z12.31 Encounter for screening mammogram for malignant neoplasm of breast (principal) | CPT/HCPCS: 77063; 77067 ==

== ENCOUNTER 2023-03-15 20:18 | Outpatient (REF) | payer OTHER, SELFPAY ==
--- NOTE | ~2023-03-15 | MR_ITS ---
MR LUMBAR SPINE WITHOUT CONTRAST CLINICAL INFORMATION: Low back pain with pain down both legs, mostly going down the right side. COMPARISON: Lumbar spine CT 02/17/2023. Lumbar spine MRI 07/26/2015. TECHNIQUE: MRI of the lumbar spine was obtained using routine sequences without contrast. FINDINGS: 5 nonrib-bearing lumbar-type vertebral bodies. Lumbar alignment is maintained. The vertebral body heights are preserved. There is moderate disc volume loss at L5-S1 and there is mild disc volume loss at L4-L5 with disc desiccation at both of these levels. Lytic type I endplate signal changes at L5-S1. No additional bone marrow edema. No acute fractures. Conus terminates at the L1 level. There are no significant extraspinal soft tissue findings. L1-L2: Slight annular disc bulge and mild bilateral facet arthropathy. No central canal stenosis and no foraminal stenosis. Findings unchanged. L2-L3: Small annular disc bulge and mild bilateral facet arthropathy. Prominent dorsal epidural fat findings in concert result in mild to moderate central canal stenosis/thecal sac effacement which is similar to the prior study. There is no foraminal stenosis. L3-L4: There is a diffuse annular disc bulge and there is moderate bilateral facet arthropathy, ligamentum flavum thickening, and prominent dorsal epidural fat resulting in worsening moderate thecal sac effacement/central canal stenosis and similar mild to moderate right and mild left foraminal stenosis. L4-L5: There are postoperative changes following right hemilaminectomy and microdiscectomy. There is granulation/scar tissue within the epidural space that is limitedly assessed without contrast. Diffuse annular disc bulge along with severe bilateral facet arthropathy and ligamentum flavum thickening result in slightly worsening moderate to severe central canal stenosis, bilateral subarticular zone stenosis with compression of the traversing L5 nerve roots bilaterally, as well as mild to moderate right and mild left foraminal stenosis. L5-S1: Diffuse annular disc bulge as well as severe right and moderate left facet arthropathy and ligamentum flavum thickening. Findings in concert result in bilateral subarticular zone stenosis with mass effect on the traversing S1 nerve roots bilaterally as well as mild bilateral foraminal encroachment. MR/MR lumbar spine wo con IMPRESSION: - At L5-S1, multifactorial degenerative changes result in bilateral subarticular zone stenosis with mass effect on the traversing S1 nerve roots bilaterally as well as mild bilateral foraminal encroachment. Findings similar to the prior study. - At L4-L5, there are postoperative changes following right hemilaminectomy and microdiscectomy. There is granulation/scar tissue within the epidural space that is limitedly assessed without contrast. Multifactorial degenerative changes at L4-L5 result in slightly worsening moderate to severe central canal stenosis, bilateral subarticular zone stenosis with compression of the traversing L5 nerve roots bilaterally, as well as mild to moderate right and mild left foraminal stenosis. - At L3-L4, multifactorial degenerative changes and prominent dorsal epidural fat result in worsening moderate thecal sac effacement/central canal stenosis and similar mild to moderate right and mild left foraminal stenosis. - At L2-L3, multifactorial degenerative changes result in similar mild to moderate central canal stenosis/thecal sac effacement.
== END 2023-03-15 20:19 | disposition home or self-care (01) ==
LOC: HO.MRI 20:18
PROVIDERS: PCP Physician Assistant; Visit Provider Physician Assistant
DX: R29.898 Other symptoms and signs involving the musculoskeletal system (principal)
CPT/HCPCS: 72148

== ENCOUNTER 2023-03-19 14:49 | Outpatient (AMB) | payer OTHER, SELFPAY ==
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
== END 2023-03-19 16:25 | disposition home or self-care (01) ==
PROVIDERS: PCP Physician Assistant; Visit Provider Physician Assistant
DX: M54.16 Radiculopathy, lumbar region (principal)
CPT/HCPCS: 99213

== ENCOUNTER 2023-03-19 14:49 | Outpatient (REF) | payer OTHER, SELFPAY | END 2023-03-19 14:50 | disposition home or self-care (01) | LOC: HO.HOSX 14:49 | PROVIDERS: PCP Physician Assistant; Visit Provider Physician Assistant | DX: Z13.89 Encounter for screening for other disorder (principal) ==

== ENCOUNTER 2023-03-26 07:47 | Outpatient (REF) | payer OTHER, SELFPAY ==
--- NOTE | ~2023-03-26 | XR_ITS ---
EXAMINATION: XR LUMBOSACRAL SPINE BENDING FILMS ONLY CLINICAL INFORMATION: Radiculopathy. COMPARISON: MR lumbar spine 03/15/2023, CT lumbar spine 02/17/2023. TECHNIQUE: 5 views of the lumbar spine inclusive of flexion and extension views. FINDINGS: IUD in the pelvis. Multiple small pelvic calcifications are likely vascular. Slight rightward curvature of the lumbar spine. Degenerative changes in the imaged lower thoracic spine. Facet arthritis in the lower lumbar spine. Moderate loss of disc space height at L5-S1 with degenerative changes. Mild loss of disc space height at L4-L1. Mild grade 1 retrolisthesis of L5 on S1 with extension reduces with flexion. XR/XR lumbar spine bending only IMPRESSION: 1. Moderate degenerative disc disease at L5-S1. 2. Mild degenerative disc disease at L4-L1.
== END 2023-03-26 07:48 | disposition home or self-care (01) ==
LOC: HO.XRAY 07:47
PROVIDERS: PCP Physician Assistant; Visit Provider Physician Assistant
DX: M54.16 Radiculopathy, lumbar region (principal)
CPT/HCPCS: 72120

== ENCOUNTER 2023-04-06 09:19 | Outpatient (AMB) | payer OTHER, SELFPAY ==
[2023-04-06 09:33] VITALS: BP 112/68; PULSE 105; O2SAT 97; BMI 33.0
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
== END 2023-04-06 10:25 | disposition home or self-care (01) ==
PROVIDERS: PCP Physician Assistant; Visit Provider Physician Assistant
DX: M54.16 Radiculopathy, lumbar region (principal)
CPT/HCPCS: 99214

== ENCOUNTER 2023-04-09 08:28 | Outpatient (AMB) | payer OTHER, SELFPAY ==
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
[2023-04-09 08:37] VITALS: BP 128/66; PULSE 88; RESP 12; O2SAT 95; BMI 33.6
== END 2023-04-09 09:03 | disposition home or self-care (01) ==
PROVIDERS: PCP Physician Assistant; Visit Provider Internal Medicine
DX: M54.16 Radiculopathy, lumbar region (principal)
CPT/HCPCS: 99204

== ENCOUNTER → 2023-04-09 08:28 | Outpatient (BNVA) | payer OTHER, SELFPAY | PROVIDERS: PCP Physician Assistant; Visit Provider Internal Medicine | DX: M54.16 Radiculopathy, lumbar region (principal); Z98.1 Arthrodesis status | CPT/HCPCS: 99202 ==

== ENCOUNTER 2023-05-04 07:00 | Outpatient (RCR) | payer OTHER, SELFPAY | END 2023-07-09 07:35 | disposition home or self-care (01) | LOC: HO.PT 07:00 | PROVIDERS: PCP Physician Assistant; Visit Provider Nurse Practitioner Family | DX: M54.12 Radiculopathy, cervical region (principal) | CPT/HCPCS: 97110; 97140; 97162; 97530 ==

== ENCOUNTER 2023-05-06 06:06 | Outpatient (REF) | payer OTHER, SELFPAY ==
--- NOTE | ~2023-05-06 | FL_ITS ---
CLINICAL INDICATION: Lumbar radiculopathy. FINDINGS: Technical assistance and equipment were provided by the Department of Radiology during intraoperative fluoroscopy for percutaneous injection. 2, limited fluoroscopic spot images are submitted. A radiologist was not present during the procedure. The tip of a percutaneous needle projects over the posterior elements of L4-L5 on the right. Contrast is injected, possibly in the region of a nerve root. The images are available for review on PACS. TOTAL FLUOROSCOPY TIME: 0.2 minutes. DOSE AREA PRODUCT: 0.05 mGy-m2 (milligray-meter squared) FL/FL guidance in treatment room IMPRESSION: Technical assistance and equipment provided by the Department of Radiology during intraoperative fluoroscopy, as above. Please see operative report for further details.
== END 2023-05-06 06:07 | disposition home or self-care (01) ==
LOC: CF 06:06
PROVIDERS: Visit Provider Internal Medicine
DX: M54.16 Radiculopathy, lumbar region (principal)
CPT/HCPCS: 64483; J1100; Q9967

== ENCOUNTER 2023-05-06 07:48 | Outpatient (AMB) | payer OTHER, SELFPAY ==
[2023-05-06 08:01] VITALS: BP 130/90; PULSE 90; RESP 20; O2SAT 98; BMI 33.6
--- NOTE | 2023-05-06 08:01 | MHC.OFFVIS ---
Intake Vital Signs 05/06/23 08:01 05/06/23 08:40 Height 5 ft 4 in 5 ft 4 in Weight 196 lb 196 lb BMI 33.6 33.6 BP 130/90 H 128/88 Blood Pressure Location Lt brachial Lt brachial Position Sitting Sitting Respiration 20 18 Pulse 90 88 Pulse Source Pulse Oximeter Pulse Oximeter Pulse Oximetry (%) 98 97 Oxygen Delivery Method Room Air Room Air Comment Pre-Op Post-Op Intake Visit Reasons: Right L4-L5 TFESI Allergies lisinopril [LISINOPRIL] Allergy (Mild, Verified 04/09/23 08:38) COUGHING bupropion [From Wellbutrin] Adverse Reaction (Intermediate, Verified 04/09/23 08:38) Depression ibuprofen [From Motrin] Adverse Reaction (Mild, Verified 04/09/23 08:38) Unknown HPI Right L4-L5 TFESI HPI Details Patient presents for scheduled procedure. Denies any recent cough, cold, infection, fever or other significant changes in medical history since last office visit. PFSH Medical History Cognitive change Hx of transfusion of packed red blood cells Anxiety Depression Personal history of COVID-19 History of lumbar puncture Spinal stenosis in cervical region Abnormal finding on MRI of brain Snoring Hypersomnia Numbness and tingling in both hands Back pain Neck pain Tobacco abuse Fatty liver IgA nephropathy Migraine GERD (gastroesophageal reflux disease) Obesity (BMI 30-39.9) Asthma Vitamin D deficiency delivery delivered Multiple sclerosis CKD (chronic kidney disease) Hypothyroid HTN (hypertension) Surgical History Status post biopsy of kidney History of Cervical disc disease Tubal ligation status Family History Mother Mental health disorder Lung cancer Father Prostate cancer Heart attack, Onset Age: 80 Social History Housing: Apartment Are you a primary gericare aide teacher to a significant other at home: No Do you presently have visiting nurse or other home services: No Alcohol intake: current Alcohol intake frequency: holidays/special occasions only Comment: Pt states Tylenol usually ineffective, but has prescription med at home Patient Tobacco Use Status: Current everyday Tobacco user Tobacco use type: Cigarette Years Smoked: 11 e-Cigarette/Vaping Use: Never Used Second Hand Smoke Exposure: Yes Advance Directives Date on File: 07/31/22 service: No Current occupational status: employed 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 Current occupational exposures/hazards: No Cognitive needs: No Hearing needs: No Vision needs: No Female Reproductive History Menstrual Age of Menarche: 10 Physical Exam Vital Signs: Last Vital Signs Pulse 90 05/06/23 08:01 Resp 20 05/06/23 08:01 BP 130/90 H 05/06/23 08:01 Pulse Ox 98 05/06/23 08:01 Oxygen Delivery Method Room Air 05/06/23 08:01 BMI result Body Mass Index 33.6 Office Procedures Details: Transforaminal epidural steroid injection, Right L4/5 After obtaining written consent, pre-procedure blood pressure and heart rate were stable and recorded in the nursing record. The patient was placed in the prone position on the fluoroscopy table. The lumbosacral area was prepped with chloraprep, allowed to dry and draped in sterile fashion. Using fluoroscopy, the skin overlying our target was anesthetized with 0.5% lidocaine. A 22 gauge 3.5 inch spinal needle was advanced to the safe triangle in the upper pole of the right L4/5 foramen. No paresthesias were elicited with needle placement and aspiration was negative for blood and CSF. Correct needle position was confirmed with approximately 1 ml contrast dye (Omnipaque 180 mg/ml) injected under real-time fluoroscopy. No evidence of vascular or intrathecal uptake was seen and there was both epidural and peripheral spread of the contrast agent. 10 mg dexamethasone plus 1 ml containing 0.5% lidocaine was slowly injected. The needle was flushed and removed. The skin was cleansed and a sterile bandages were applied. The patient tolerated the procedure well and no complications were encountered. Following the procedure the patient's vital signs were stable. The patient was discharged home in good condition with post-procedural instructions. Time Out: Immediately prior to the procedure, the following was verbally confirmed that there is a signed consent form and that the correct patient, planned procedure, site and side are consistent with documentation and that necessary equipment and/or blood products are available prior to the start of the case. Complications: none EBL: <5 cc 98057 - Lumbar/Sacral Procedure code (CPT) selection complete Assessment & Plan Assessment & Plan (1) Lumbar radiculopathy: Code(s): M54.16 - Radiculopathy, lumbar region Plan Patient is status post right L4/5 TFESI. Patient tolerated procedure well and was discharged home in stable condition with discharge instructions. All questions were answered. We will follow-up via telephone or in clinic to assess response to therapy. A follow-up appointment was made during today's visit. Orders: Orders FL guidance in treatment room Today M54.16 - Radiculopathy, lumbar region Coding Level of Care Code Procedure Only Diagnoses Lumbar radiculopathy M54.16 CPT Codes Transforaminal Epidural Steroid Inj - TESI 3: 17435 - Lumbar/Sacral ([id number])
[2023-05-06 08:40] VITALS: BP 128/88; PULSE 88; RESP 18; O2SAT 97; BMI 33.6
== END 2023-05-06 08:32 | disposition home or self-care (01) ==
LOC: HO.PMCPRC 07:48
PROVIDERS: PCP Physician Assistant; Referring Provider Physician Assistant; Visit Provider Internal Medicine
DX: M54.16 Radiculopathy, lumbar region (principal)
CPT/HCPCS: 64483

== ENCOUNTER 2023-05-11 09:20 | Outpatient (AMB) | payer OTHER, SELFPAY ==
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
[2023-05-11 09:32] VITALS: BP 138/76; PULSE 87; RESP 16; O2SAT 97; BMI 32.5
== END 2023-05-11 09:58 | disposition home or self-care (01) ==
PROVIDERS: PCP Physician Assistant; Visit Provider Physician Assistant
DX: M54.16 Radiculopathy, lumbar region (principal)
CPT/HCPCS: 99214

== ENCOUNTER 2023-06-04 08:01 | Outpatient (AMB) | payer OTHER, SELFPAY ==
[2023-06-04 08:08] VITALS: BP 142/79; PULSE 88; RESP 12; O2SAT 98; BMI 32.4
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
== END 2023-06-04 08:45 | disposition home or self-care (01) ==
PROVIDERS: PCP Physician Assistant; Visit Provider Internal Medicine
DX: M54.16 Radiculopathy, lumbar region (principal)
CPT/HCPCS: 99213

== ENCOUNTER → 2023-06-04 08:01 | Outpatient (BNVA) | payer OTHER, SELFPAY | PROVIDERS: PCP Physician Assistant; Visit Provider Internal Medicine | DX: M54.16 Radiculopathy, lumbar region (principal); Z98.890 Other specified postprocedural states | CPT/HCPCS: 99212 ==

== ENCOUNTER 2023-07-07 14:40 | Outpatient (AMB) | payer OTHER, SELFPAY ==
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
== END 2023-07-07 15:08 | disposition home or self-care (01) ==
PROVIDERS: PCP Physician Assistant; Visit Provider Neurological Surgery
DX: M48.061 Spinal stenosis, lumbar region without neurogenic claudication (principal); M54.16 Radiculopathy, lumbar region
CPT/HCPCS: 99213

== ENCOUNTER → 2023-07-07 14:40 | Outpatient (BNVA) | payer OTHER, SELFPAY | PROVIDERS: PCP Physician Assistant; Visit Provider Neurological Surgery | DX: M48.061 Spinal stenosis, lumbar region without neurogenic claudication (principal); M54.16 Radiculopathy, lumbar region | CPT/HCPCS: 99212 ==

== ENCOUNTER 2023-07-13 08:54 | Outpatient (AMB) | payer OTHER, SELFPAY ==
[2023-07-13 09:14] VITALS: BP 162/92; PULSE 72; O2SAT 98; BMI 32.4
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
== END 2023-07-13 09:45 | disposition home or self-care (01) ==
PROVIDERS: PCP Physician Assistant; Visit Provider Physician Assistant
DX: M54.16 Radiculopathy, lumbar region (principal); V89.2XXS Person injured in unspecified motor-vehicle accident, traffic, sequela; Z04.2 Encounter for examination and observation following work accident
CPT/HCPCS: 99213; 99214

== ENCOUNTER 2023-07-13 09:49 | Outpatient (REF) | payer OTHER, SELFPAY ==
[2023-07-13 10:25] LABS: Hematocrit 44.7 % (37.0-47.0); Hemoglobin 14.8 g/dl (12.0-16.0); Mean Corpuscular HGB Conc 33.1 g/dl (31.0-35.0); Mean Corpuscular Hemoglobin 28.1 pg (27.0-33.0); Mean Corpuscular Volume 84.8 fL (80.0-98.0); Mean Platelet Volume 11.9 fL (9.4-12.3); Platelet Count 358 X10*3/uL (160-400); Red Blood Count 5.27 X10*6/uL (4.20-5.50); White Blood Count 13.6 X10*3/uL (4.8-10.8)
[2023-07-13 10:35] LABS: Estimated Average Glucose 105 mg/dL; Hemoglobin A1C 127.9867 umol/L; Hemoglobin A1c % 5.3 % (<6.0)
[2023-07-13 11:05] LABS: Alanine Aminotransferase 24 U/L (0-31); Albumin Level 4.4 g/dL (3.5-5.0); Alkaline Phosphatase 95 U/L (39-117); Anion Gap 13 (12-20); Aspartate Amino Transferase 19 U/L (5-31); Bilirubin Total 0.7 mg/dL (0.0-1.0); Blood Urea Nitrogen 21 mg/dL (9-16); Calcium 9.9 mg/dL (8.4-10.2); Carbon Dioxide 27 mmol/L (22-29); Chloride 104 mmol/L (96-108); Estimated Glomerular Filt Rate 46; Glucose Fasting 79 mg/dL (60-99); Potassium 3.7 mmol/L (3.3-5.1); Sodium 140 mmol/L (135-145); Total Protein 7.8 g/dL (6.5-8.0)
[2023-07-13 11:21] LABS: TSH reflex Free T4 1.98 uIU/mL (0.32-4.0)
== END 2023-07-13 09:50 | disposition home or self-care (01) ==
LOC: HO.LAB 09:49
PROVIDERS: PCP Physician Assistant; Visit Provider Physician Assistant
DX: E03.9 Hypothyroidism, unspecified (principal); R73.09 Other abnormal glucose
CPT/HCPCS: 36415; 80053; 83036; 84443; 85027

== ENCOUNTER 2023-07-17 09:09 | Outpatient (AMB) | payer OTHER, SELFPAY ==
--- OUTSIDE RECORDS SUMMARY | 2023-07-17 09:10 | XMS_ITS | Continuity of Care Document ---
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 [employer] Name Role Phone Po Dixie MALIK Primary Care Physician [place] [facility] [place]23 - 04/23/[address] [id number] Attending Physician: Rae Salmon MD Allergies, Adverse Reactions, Alerts Substance Reaction Severity Status lisinopril C/O - cough Active Medications hydrochlorothiazide-triamterene 25 mg-37.5 mg oral tablet 1, tablet, By Mouth, Daily, Refills 0, Maintenance, 01/18/19 16:33:46 EST Start Date: 01/18/19 Status: Ordered ibuprofen 800 mg oral tablet 800 mg, 1, tablet, By Mouth, 3 times a day, Refills 0, Maintenance, 01/18/19 16:36:12 EST Start Date: 01/18/19 Status: Ordered LORazepam 0.5 mg oral tablet 1 tablet = 0.5 mg, By Mouth, Daily, 0 Refills, Maintenance, 01/18/19 16:32:05 EST Start Date: 01/18/19 Status: Ordered Orilissa 150 mg oral tablet 1 tablet = 150 mg, By Mouth, Daily, 0 Refills, Maintenance, 01/18/19 16:36:30 EST Start Date: 01/18/19 Status: Ordered ProAir HFA 90 mcg/inh inhalation aerosol with adapter 2, puffs, Inhalation, Every 6 hours, Refills 0, Maintenance, 01/18/19 16:32:42 EST Start Date: 01/18/19 Status: Ordered Tirosint 150 mcg (0.15 mg) oral capsule 1 capsule = 150 mcg, By Mouth, Daily, 0 Refills, Maintenance, 01/18/19 16:35:14 EST Start Date: 01/18/19 Status: Ordered traMADol 50 mg oral tablet 2 tablet = 100 mg, By Mouth, 2 times a day, 0 Refills, Maintenance, 01/18/19 16:35:37 EST Start Date: 01/18/19 Status: Ordered Problem List Condition Confirmation Course Effective Dates Status H ealth Status Informant Anxiety and depression Confirmed Active Asthma Confirmed Active Obesity (BMI 30-39.9) Confirmed Active CKD (chronic kidney disease) Confirmed Active Dysmenorrhea Confirmed Active Dysphagia Confirmed Active Endometriosis Confirmed Active GERD (gastroesophageal reflux disease) Confirmed Active Enlarged thyroid Confirmed Active Hypercalcemia Confirmed Active Hypertension Confirmed Active Hypothyroid Confirmed Active IgA nephropathy Confirmed Active Irregular menses Confirmed Active Migraine Confirmed Active Neuropathy Confirmed Active PMDD (premenstrual dysphoric disorder) Confirmed Active Fatty liver Confirmed Active Vitamin D deficiency Confirmed Active Social History Social History Type Response Tobacco Use: 4 or less cigar ettes(less than 1/4 pack)/day in last 30 days. Sex Patient Care team information Care Team Personnel Name: Pravin Mckinnon MD Position: [facility] Renal MD Member Role: Lifetime Consulting Physician Address: Address: [address] [place] [address] [id number] [place], [place] [address] Name: Dixie Mathews MD Position: Reference Physician Member Role: PCP Address: Address: [address] [place] [address]
--- NOTE | 2023-07-17 09:13 | AM.OFFWIN_ITS ---
Intake Vital Signs 07/17/23 09:14 Height 5 ft 4 in Weight 189 lb BMI 32.4 BP 136/74 Blood Pressure Location Rt brachial Position Sitting Pulse 79 Pulse Source Pulse Oximeter Pulse Oximetry (%) 98 Oxygen Delivery Method Room Air Intake Visit Reasons: EST/left hand middle finger swelling (lobby) Intake Note: Pt is here today c/o Lt hand middle finger swelling and infected Patient Tobacco Use Status: Current everyday Tobacco user Allergies lisinopril [LISINOPRIL] Allergy (Mild, Verified 07/17/23 09:31) COUGHING bupropion [From Wellbutrin] Adverse Reaction (Intermediate, Verified 07/17/23 09:31) Depression duloxetine [From Cymbalta] Adverse Reaction (Intermediate, Verified 07/17/23 09:31) increased depression ibuprofen [From Motrin] Adverse Reaction (Mild, Verified 07/17/23 09:31) Unknown Medication List - Last Reconciled 07/17/23 by MITCHEL Cottrell-RIN albuterol sulfate 90 mcg/actuation 1 inh inhalation QID PRN amlodipine 10 mg PO DAILY 90 days cholecalciferol (vitamin D3) (Vitamin D3) 50 mcg PO DAILY diclofenac sodium 1% (Aleve (diclofenac)) 2 grams topical QID PRN fluoxetine 10 mg PO DAILY Lactobacillus acidophilus (Probiotic) 10,000 mmu cells PO DAILY levothyroxine 150 mcg PO DAILY lorazepam 0.5 mg PO DAILY PRN 30 days losartan 25 mg PO DAILY oxycodone 10 mg PO BID PRN 7 days tizanidine 2 mg PO Q8H 15 days tramadol 50 mg PO Q8H PRN 7 days varenicline 1 mg PO BID 30 days HPI HPI Comments History of Present Illness Details Here today with pain and swelling of the cuticle of her left middle finger. Reports this started 2 weeks ago. She was treated with 1 week of amoxicillin however did not have any resolution. She denies fever chills or loss of sensation at the tip of her finger. Up-to-date on ap [facility] Medical History (Updated 07/17/23 @ 09:37 by MITCHEL Cottrell-RIN) Tobacco dependence Cognitive change Hx of transfusion of packed red blood cells Anxiety Depression Personal history of COVID-19 History of lumbar puncture Spinal stenosis in cervical region Abnormal finding on MRI of brain Hypersomnia Numbness and tingling in both hands Fatty liver IgA nephropathy Migraine GERD (gastroesophageal reflux disease) Obesity (BMI 30-39.9) Asthma Vitamin D deficiency delivery delivered Multiple sclerosis CKD (chronic kidney disease) Hypothyroid HTN (hypertension) Surgical History Status post biopsy of kidney History of Cervical disc disease Tubal ligation status Family History Mother Mental health disorder Lung cancer Father Prostate cancer Heart attack, Onset Age: 80 Social History Housing: Apartment Are you a primary rn urgent care to a significant other at home: No Do you presently have visiting nurse or other home services: No Alcohol intake: current Alcohol intake frequency: holidays/special occasions only Comment: Pt states Tylenol usually ineffective, but has prescription med at home Patient Tobacco Use Status: Current everyday Tobacco user Tobacco use type: Cigarette Years Smoked: 11 e-Cigarette/Vaping Use: Never Used Second Hand Smoke Exposure: Yes Advance Directives Date on File: 07/31/22 service: No Current occupational status: employed 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 Current occupational exposures/hazards: No Cognitive needs: No Hearing needs: No Vision needs: No Female Reproductive History Menstrual Age of Menarche: 10 Review of Systems Const All systems reviewed & are unremarkable except as noted in HPI and below Physical Exam Vital Signs: Last Vital Signs Pulse 79 07/17/23 09:14 BP 136/74 07/17/23 09:14 Pulse Ox 98 07/17/23 09:14 Oxygen Delivery Method Room Air 07/17/23 09:14 BMI result Body Mass Index 32.4 Const Other: Paronychia of the left middle finger Assessment & Plan Assessment & Plan (1) Paronychia of finger: Code(s): L03.019 - Cellulitis of unspecified finger Qualifiers: Laterality: left Qualified Code(s): L03.012 - Cellulitis of left finger Plan: . Plan This note is constructed using voice recognition software. While every effort has been made to ensure accuracy in psychiatric nursing assistant, still errors may have been included Sometimes, these errors may affect the content or meaning of the given sentence . Medications: New cephalexin 500 mg PO Q8H 7 days 21 caps 0RF sulfamethoxazole-trimethoprim 800-160 mg (Bactrim DS) 1 tab PO BID 7 days 14 tabs 0RF Patient Instructions: Advised to soak hand as often as possible in a two-to-one ratio of Epsom salt and warm water bath. Gently massage the area but do not squeeze. Take antibiotics as directed. Return to office in 3 days for re-evaluation. Coding Level of Care Code Est Pt Level 3 (15878) Diagnoses Paronychia of finger of left hand L03.012 Laterality: left
[2023-07-17 09:14] VITALS: BP 136/74; PULSE 79; O2SAT 98; BMI 32.4
== END 2023-07-17 10:00 | disposition home or self-care (01) ==
PROVIDERS: PCP Physician Assistant; Visit Provider Nurse Practitioner Family
DX: L03.012 Cellulitis of left finger (principal)
CPT/HCPCS: 99213

== ENCOUNTER 2023-07-21 08:03 | Outpatient (AMB) | payer OTHER, SELFPAY ==
--- NOTE | 2023-07-21 08:26 | MHC.PC.OV ---
Vital Signs 07/21/23 08:27 Height 5 ft 4 in Weight 188 lb BMI 32.3 BP 130/70 Blood Pressure Location Lt brachial Position Sitting Pulse 103 H Pulse Source Pulse Oximeter Pulse Oximetry (%) 97 Oxygen Delivery Method Room Air Intake Visit Reasons: Walk In 07/17/23 infected finger Intake Note: Patient is here to follow up on infected finger on the left hand, was seen at walk-in on 07/17/23. 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 Workday Consultant: Not Required per policy Accompanied by: Self / Same As Patient Allergies lisinopril [LISINOPRIL] Allergy (Mild, Verified 07/21/23 08:37) COUGHING bupropion [From Wellbutrin] Adverse Reaction (Intermediate, Verified 07/21/23 08:37) Depression duloxetine [From Cymbalta] Adverse Reaction (Intermediate, Verified 07/21/23 08:37) increased depression ibuprofen [From Motrin] Adverse Reaction (Mild, Verified 07/21/23 08:37) Unknown Medication List - Last Reconciled 07/21/23 by Donta Bellamy PA-C albuterol sulfate 90 mcg/actuation 1 inh inhalation QID PRN amlodipine 10 mg PO DAILY 90 days cephalexin 500 mg PO Q8H 7 days cholecalciferol (vitamin D3) (Vitamin D3) 50 mcg PO DAILY diclofenac sodium 1% (Aleve (diclofenac)) 2 grams topical QID PRN fluoxetine 10 mg PO DAILY Lactobacillus acidophilus (Probiotic) 10,000 mmu cells PO DAILY levothyroxine 150 mcg PO DAILY lorazepam 0.5 mg PO DAILY PRN 30 days losartan 25 mg PO DAILY oxycodone 10 mg PO BID PRN 7 days sulfamethoxazole-trimethoprim 800-160 mg (Bactrim DS) 1 tab PO BID 7 days tizanidine 2 mg PO Q8H 15 days tramadol 50 mg PO Q8H PRN 7 days varenicline 1 mg PO BID 30 days Tobacco use date assessed: 07/21/23 Dental Screening Dental Screen Date: 04/06/23 HPI Walk In 07/17/23 infected finger HPI Details Patient is a 47-year-old female here today for walk-in visit follow-up. She has paronychia of her finger and was placed on antibiotics (cephalexin and Bactrim) and advised to do warm water soaks. Clinically has been improving though still has some edema. She does report she has been able to express some blood from the cuticle. Has been doing warm water salt soaks which has been helpful. [facility]LY [facility] Medical History Tobacco dependence Cognitive change Hx of transfusion of packed red blood cells Anxiety Depression Personal history of COVID-19 History of lumbar puncture Spinal stenosis in cervical region Abnormal finding on MRI of brain Hypersomnia Numbness and tingling in both hands Fatty liver IgA nephropathy Migraine GERD (gastroesophageal reflux disease) Obesity (BMI 30-39.9) Asthma Vitamin D deficiency delivery delivered Multiple sclerosis CKD (chronic kidney disease) Hypothyroid HTN (hypertension) Surgical History Status post biopsy of kidney History of Cervical disc disease Tubal ligation status Family History Mother Mental health disorder Lung cancer Father Prostate cancer Heart attack, Onset Age: 80 Social History Housing: Apartment Are you a primary care team coordinator scheduler to a significant other at home: No Do you presently have visiting nurse or other home services: No Alcohol intake: current Alcohol intake frequency: holidays/special occasions only Comment: Pt states Tylenol usually ineffective, but has prescription med at home Patient Tobacco Use Status: Current everyday Tobacco user Tobacco use type: Cigarette Years Smoked: 11 e-Cigarette/Vaping Use: Never Used Second Hand Smoke Exposure: Yes Advance Directives Date on File: 07/31/22 service: No Current occupational status: employed 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 Current occupational exposures/hazards: No Cognitive needs: No Hearing needs: No Vision needs: No Female Reproductive History Menstrual Age of Menarche: 10 Questionnaire Thrive Questionnaire Date Thrive assessed: 04/06/23 JASPER-7 AMB Questionnaire JASPER-7 Date JASPER - 7 assessed: 04/06/23 Source: Developed by Drs. Jose Martin, Candelaria Brown, Milton Mack and colleagues, with an educational lauren from [employer]. Review of Systems Const Denies headache(s) Eyes Denies loss of vision ENT Denies vertigo, Denies dizziness, Denies headache(s) and Denies sore throat Card Denies chest pain, Denies leg edema and Denies lightheadedness Resp Denies cough, Denies hemoptysis and Denies wheezing GI Denies abdominal pain, Denies melena, Denies constipation, Denies diarrhea and Denies vomiting Denies urinary frequency, Denies dysuria and Denies urinary urgency Musc Denies arthralgias, Denies joint swelling, Denies numbness and Denies tingling Neuro Denies Abnormal speech present, Denies behavioral changes, Denies vertigo, Denies dizziness, Denies headache(s), Denies loss of vision, Denies memory loss, Denies numbness and Denies tingling Psych Denies anxiety, Denies behavioral changes, Denies depression, Denies memory loss and Denies panic attacks Mark/Lymph Denies easy bleeding and Denies easy bruising Aller/Immun Denies wheezing Physical exam (Primary Care) Vital Signs: Last Vital Signs Pulse 103 H 07/21/23 08:27 BP 130/70 07/21/23 08:27 Pulse Ox 97 07/21/23 08:27 Oxygen Delivery Method Room Air 07/21/23 08:27 BMI result Body Mass Index 32.3 Tobacco/Smoking Status: Tobacco use Status Tobacco use date assessed 07/21/23 07/21/23 08:31 Patient Tobacco Use Status Current everyday Tobacco 07/21/23 08:26 Tobacco use type Cigarette 07/21/23 08:26 e-Cigarette/Vaping Use Never Used 07/21/23 08:26 Thrive Assessment: Date of Thrive Assessment Date Thrive assessed 04/06/23 07/21/23 08:26 Const General: healthy appearing, no acute distress, alert and awake Nutritional Appearance: well nourished Orientation/consciousness: oriented to person, oriented to place and oriented to time HENMT Ears: TM's normal bilaterally General nose exam: Normal nasal mucous membranes and turbinates present Eyes Conjunctivae: conjunctivae normal Sclerae: sclerae normal Pupils: Equal, round and reactive pupils present Neck Neck: Yes no lymphadenopathy and Yes no JVD Thyroid: Thyroid normal Carotids: no bruits Resp Effort & Inspection: normal respiratory effort and not tachypneic Auscultation: no crackles, no rales, no rhonchi and no wheezes Cardio Rate: regular rate Rhythm: regular rhythm Heart sounds: no murmurs and normal S1 and S2 GI Palpation (GI): Soft to palpation, nontender, no hepatomegaly and no splenomegaly Auscultation: normal bowel sounds Skin General skin exam: no rashes or lesions noted and dry skin Neuro General: oriented to person, oriented to place and oriented to time Cranial nerves: Yes Equal, round and reactive pupils present Speech: No Abnormal speech present Gait exam (Neuro): Normal gait present Motor exam (neuro): no tremor noted Extrem Right upper extremity: full ROM Left upper extremity: full ROM Hand/finger images: 1. DECREASED ERYTHEMA AND SWELLING COMPARED TO PREVIOUS PICTURES. Right lower extremity: full ROM; no edema Left lower extremity: full ROM; no edema Psych Mental Status: mental status grossly normal Speech and movement: Normal speech and movement present Affect: normal affect Attitude: cooperative Thought process: Normal thought process present Assessment and Plan Assessment & Plan (1) Paronychia of finger: Code(s): L03.019 - Cellulitis of unspecified finger Qualifiers: Laterality: left Qualified Code(s): L03.012 - Cellulitis of left finger Plan: Has paronychia of the left middle finger. Now taking antibiotics and clinically improving. No notable pus pocket to decompress at this time. Will continue antibiotics. Will supply patient with topical antibiotic to place on area as well. Advised on continuing warm salt water soaks Medications: New mupirocin 2% 1 appl topical BID 21 days 22 grams 0RF L03.012 - Cellulitis of left finger Coding Level of Care Code Est Pt Level 3 (89629) Diagnoses Paronychia of finger of left hand L03.012 Laterality: left
[2023-07-21 08:27] VITALS: BP 130/70; PULSE 103; O2SAT 97; BMI 32.3
== END 2023-07-21 08:46 | disposition home or self-care (01) ==
PROVIDERS: PCP Physician Assistant; Visit Provider Physician Assistant
DX: L03.012 Cellulitis of left finger (principal)
CPT/HCPCS: 99213

== ENCOUNTER 2023-08-16 08:15 | Emergency (ER) | payer OTHER, SELFPAY ==
--- NOTE | ~2023-08-16 | XR_ITS ---
EXAMINATION: XR CHEST CLINICAL INFORMATION: Ongoing cough for one week COMPARISON: Chest 09/29/2022 TECHNIQUE: 2 views of the chest were obtained. FINDINGS: The lungs are well expanded. There is no focal consolidation, interstitial pulmonary edema or pneumothorax. No pleural effusion. The cardiomediastinal silhouette is within normal limits. Ventral plate and screws are seen in the lower cervical spine for lower cervical vertebral fusion. XR/XR chest 2V IMPRESSION: No acute cardiopulmonary disease.
[2023-08-16 08:31] VITALS: BP 158/93; PULSE 88; RESP 20; TEMP 36.2; O2SAT 98; BMI 30.9
--- NOTE | 2023-08-16 09:33 | ED.GENADULT ---
HPI - General Adult General Chief complaint: Upper Respiratory Symptoms Stated complaint: Diff breathing/Cough 1 week Time Seen by Provider: 08/16/23 09:32 Source: patient Mode of arrival: ambulatory Limitations: no limitations History of Present Illness ED Provider: Savi Quintana NP HPI narrative: Patient is a 47-year-old female with history of asthma, GERD, migraines, CKD, HTN, hypothyroid, MS presenting to the emergency department with complaint of worsening shortness of breath. States she has had a nonproductive cough and dyspnea for the past week. She was treated with a course of azithromycin, prednisone, and albuterol inhaler and states her symptoms seem to be worsening instead of improving. 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 Denies fevers. Denies chest pain or palpitations. complaint: Shortness of breath Onset (ago): week(s) Associated symptoms: cough Treatments prior to arrival: other Related Data Home Medications ?Medication ?Instructions ?Recorded ?Confirmed Lactobacillus acidophilus 10 10,000 mmu cells PO DAILY 11/04/22 07/21/23 billion cell capsule (Probiotic) cholecalciferol (vitamin D3) 50 50 mcg PO DAILY 11/04/22 07/21/23 mcg (2,000 unit) capsule (Vitamin D3) Previous Rx's ?Medication ?Instructions ?Recorded lorazepam 0.5 mg tablet 0.5 mg PO DAILY PRN anxiety 30 12/14/22 days #15 tabs levothyroxine 150 mcg tablet 150 mcg PO DAILY #90 tabs 01/27/23 diclofenac sodium 1 % topical gel 2 g topical QID PRN pain #100 grams 02/03/23 (Aleve (diclofenac)) losartan 25 mg tablet 25 mg PO DAILY #30 tabs 02/23/23 tramadol 50 mg tablet 50 mg PO Q8H PRN pain 7 days #21 05/10/23 tabs tizanidine 2 mg tablet 2 mg PO Q8H muscle spasticity 15 05/25/23 days #45 tabs varenicline 1 mg tablet 1 mg PO BID 30 days #60 tabs 05/31/23 amlodipine 10 mg tablet 10 mg PO DAILY 90 days #90 tabs 07/13/23 cephalexin 500 mg capsule 500 mg PO Q8H 7 days #21 caps 07/17/23 sulfamethoxazole 800 1 tab PO BID 7 days #14 tabs 07/17/23 mg-trimethoprim 160 mg tablet (Bactrim DS) mupirocin 2 % topical ointment 1 appl topical BID 21 days #22 07/21/23 grams oxycodone 10 mg tablet 10 mg PO BID PRN pain 7 days #14 08/04/23 tabs fluoxetine 10 mg capsule 10 mg PO DAILY #90 caps 08/05/23 azithromycin 250 mg tablet See Rx Instructions PO .COMPLEX #6 08/11/23 tabs prednisone 10 mg tablet 10 mg PO DIRECTED 6 days #12 08/11/23 tabs albuterol sulfate 90 mcg/actuation 1 inh inhalation QID PRN Shortness 08/13/23 aerosol inhaler Of Breath Or Wheezing #8.5 grams benzonatate 100 mg capsule 100 mg PO TID PRN cough #14 caps 08/16/23 prednisone 20 mg tablet See Rx Instructions .Route 08/16/23 .COMPLEX #18 tabs Allergies Allergy/AdvReac Type Severity Reaction Status Date / Time lisinopril [LISINOPRIL] Allergy Mild COUGHING Verified 08/16/23 08:36 bupropion [From Wellbutrin] AdvReac Intermediate Depression Verified 08/16/23 08:36 duloxetine [From Cymbalta] AdvReac Intermediate increased Verified 08/16/23 08:36 depression ibuprofen [From Motrin] AdvReac Mild Unknown Verified 08/16/23 08:36 Review of Systems Review of Systems: As per HPI. Yes all other systems are reviewed and are negative Constitutional: Constitutional: Reports as per HPI [facility] Past Medical History Medical History Tobacco dependence Cognitive change Hx of transfusion of packed red blood cells Anxiety Depression Personal history of COVID-19 History of lumbar puncture Spinal stenosis in cervical region Abnormal finding on MRI of brain Hypersomnia Numbness and tingling in both hands Fatty liver IgA nephropathy Migraine GERD (gastroesophageal reflux disease) Obesity (BMI 30-39.9) Asthma Vitamin D deficiency delivery delivered Multiple sclerosis CKD (chronic kidney disease) Hypothyroid HTN (hypertension) Surgical History Status post biopsy of kidney History of Cervical disc disease Tubal ligation status Family History Family History Mother Mental health disorder Lung cancer Father Prostate cancer Heart attack, Onset Age: 80 Social History Social History Housing: Apartment Are you a primary primary care sales representative to a significant other at home: No Do you presently have visiting nurse or other home services: No Alcohol intake: current Alcohol intake frequency: holidays/special occasions only Comment: Pt states Tylenol usually ineffective, but has prescription med at home Patient Tobacco Use Status: Current everyday Tobacco user Tobacco use type: Cigarette Years Smoked: 11 Smoked in Last 30 Days: No e-Cigarette/Vaping Use: Never Used Second Hand Smoke Exposure: Yes Use of substances other than those prescribed or required for medical reasons: No Advance Directives: Yes Advance Directives on File: Yes Advance Directives Date on File: 07/31/22 Do you have a plan to hurt others: No Plan service: No Current occupational status: employed 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 Current occupational exposures/hazards: No Cognitive needs: No Hearing needs: No Vision needs: No Physical Exam ED Vital Signs: Vital Signs - 24 hr 08/16/23 08:31 08/16/23 10:22 Temperature 97.2 F Pulse Rate 88 Respiratory Rate 20 18 Blood Pressure 158/93 H Pulse Oximetry 98 Oxygen Delivery Method Room Air BMI result Body Mass Index 30.9 Vital signs have been reviewed and appear to be correct. Blood pressure elevated. Heart rate normal. Respiratory rate normal. Temperature normal. Oxygen saturation normal. Const General: cooperative, healthy appearing and no acute distress Orientation/consciousness: oriented to person, oriented to place, oriented to time and patient oriented x3 Limitations: no limitations HENMT Head: Yes normocephalic and Yes atraumatic Ears: external ears normal General nose exam: Normal external nose present Face and sinus: Yes face symmetric Mouth: oropharynx normal and moist mucous membranes Throat: Yes uvula midline Eyes Pupils: Equal, round and reactive pupils present Neck Neck: Yes normal visual inspection and Yes supple Resp Effort & Inspection: normal respiratory effort and able to speak in complete sentences Auscultation: clear to auscultation bilaterally and wheezes scattered wheezes Cardio Rate: regular rate Rhythm: regular rhythm Heart sounds: S1 normal heart sound present and S2 normal heart sound present GI Palpation (GI): Soft to palpation and nontender Auscultation: normoactive bowel sounds General: Yes no CVA tenderness Back/Spine/Pelvis Back: no CVA tenderness Skin General skin exam: elasticity normal and turgor normal Neuro General: oriented to person, oriented to place, oriented to time, patient oriented x3, moves all extremities, no focal motor deficits and CN's II-XI intact bilaterally Cranial nerves: Yes Equal, round and reactive pupils present Cognition (Neuro): normal cognition Extrem General: Yes full ROM, Yes no pedal edema and Yes no calf tenderness Psych Mental Status: mental status grossly normal Affect: normal affect Thought process: Normal thought process present Medications Administered Discontinued Medications Generic Name Dose Route Start Last Admin Trade Name Jarenq PRN Reason Stop Dose Admin Albuterol Sulfate 2.5 mg/ 0 mg 08/16/23 10:17 08/16/23 10:21 Albuterol/Ipratropium 3 ml INHALE 08/16/23 10:18 1 dose ONCE ONE Administration Medical Decision Making Medical Decision Making MDM Narrative: Patient is a 47-year-old female with history of asthma, GERD, migraines, CKD, HTN, hypothyroid, MS presenting to the emergency department with complaint of worsening shortness of breath. On exam patient is awake, A+Ox3, BP elevated, VS otherwise WNL, afebrile, no increased work of breathing, normal neurological exam without focal deficits, physical exam findings as above. Given reported symptoms and physical exam findings, initial differential includes viral illness, bronchitis, pneumonia. Labs notable for slight leukocytosis without left shift, otherwise unremarkable. X-ray chest notable for no evidence of pneumonia. My interpretation is in agreement with the radiologist's interpretation. Will place patient on another course of prednisone, will do tapering dose this time. Will send prescription for benzonatate and advised patient to follow-up with PCP. Return precautions discussed at bedside. Patient verbalized understanding of and agreement plan. Differential Diagnosis Differential Diagnoses: The differential diagnosis associated with the presentation includes As per MDM. Admission/Observation Consideration of admission/observation: Escalation of care including admission/observation considered Patient would have been admitted to the hospital had their work up had any findings where hospital admission was appropriate and their clinical presentation warranted hospital admission. Lab Data [facility] Lab Attestation statement: I reviewed the patient's lab results. As per MDM. 08/16/23 09:54 08/16/23 09:53 Labs: Lab Results 08/16/23 08/16/23 Range/Units 09:53 09:54 WBC 11.4 H (4.8-10.8) X10*3/uL RBC 5.39 (4.20-5.50) X10*6/uL Hgb 14.8 (12.0-16.0) g/dl Hct 44.8 (37.0-47.0) % MCV 83.1 (80.0-98.0) fL MCH 27.5 (27.0-33.0) pg MCHC 33.0 (31.0-35.0) g/dl RDW 12.9 (11.0-16.0) % Plt Count 394 (160-400) X10*3/uL MPV 10.3 (9.4-12.3) fL Immature Gran % (Auto) 0.5 H (0.0-0.4) % Neut % (Auto) 69.4 (45-73) % Lymph % (Auto) 23.7 (20-40) % Ponce % (Auto) 5.7 (2-11) % Eos % (Auto) 0.3 (0-4) % Baso % (Auto) 0.4 (0-2) % Lymph # (Auto) 2.7 (1.2-4.9) X10*3/uL Ponce # (Auto) 0.7 (0.1-1.2) X10*3/uL Eos # (Auto) 0.0 (0.0-0.4) X10*3/uL Baso # (Auto) 0.0 (0.0-0.2) X10*3/uL Abs Immat Gran (auto) 0.06 H (0.00-0.03) X10*3/uL Absolute Neuts (auto) 7.9 (2.0-8.3) x10*3/uL Absolute Nucleated RBC 0.000 (0.0-0.012) X10*3/uL Nucleated RBC % (auto) 0.0 (0.0-0.2) /100WBC Sodium 141 (135-145) mmol/L Potassium 3.6 (3.3-5.1) mmol/L Chloride 105 (96-108) mmol/L Carbon Dioxide 23 (22-29) mmol/L Anion Gap 17 (12-20) BUN 20 H (9-16) mg/dL Creatinine 1.13 (0.5-1.4) mg/dL Estim Creat Clear Calc 62.2 Estimated GFR 51 Random Glucose 98 (60-115) mg/dL Calcium 9.5 (8.4-10.2) mg/dL Total Bilirubin 0.3 (0.0-1.0) mg/dL AST 19 (5-31) U/L ALT 29 (0-31) U/L Alkaline Phosphatase 96 (39-117) U/L Total Protein 7.7 (6.5-8.0) g/dL Albumin 4.2 (3.5-5.0) g/dL Independent Interpretation I performed an independent interpretation of an: Plain X-Ray Interpretation: No evidence of pneumonia on chest x-ray Radiology Impression Discussion of test interpretation with radiology: I have reviewed the radiologist's reading. Radiologist Impression: XR/XR chest 2V IMPRESSION: No acute cardiopulmonary disease. External Record Review External record reviewed: Inpatient record, Office record and Outpatient record Prescription Management I considered prescription management with: Other Discharge Plan Discharge Clinical Impression: Upper respiratory virus Patient Disposition: Home, Self-Care Instructions: Upper Respiratory Infection (DC), Viral Syndrome (ED) Additional Instructions: You were evaluated in the emergency department today for shortness of breath and cough. Your symptoms are likely related to a viral illness which will resolve on its own with time and rest. You are being prescribed a tapering course of prednisone to decrease inflammation. You are also being prescribed benzonatate which is a cough medicine that you can take every 8 hours as needed. Keep this medication way from children. You should ensure adequate fluid intake, and can use Tylenol 650 mg or ibuprofen 600 mg every 6 hours as needed for fever or discomfort. Please follow-up with your primary care provider this week. Return to the emergency department if you develop chest pain, worsening shortness of breath, difficulty swallowing, fever 100.4? F or greater or any other concerning symptoms. Prescriptions: New prednisone 20 mg tablet See Rx Instructions .ROUTE .COMPLEX Qty: 18 0RF Rx Instructions: 60mg (3 tabs) x 3 days, then 40mg (2 tabs) x 3 days, then 20mg (1 tab) x 3 days benzonatate 100 mg capsule 100 mg PO TID PRN (Reason: cough) Qty: 14 0RF No Action levothyroxine 150 mcg tablet 150 mcg PO DAILY Qty: 90 2RF tramadol 50 mg tablet 50 mg PO Q8H PRN (Reason: pain) 7 Days Qty: 21 2RF tizanidine 2 mg tablet 2 mg PO Q8H 15 Days Qty: 45 3RF varenicline 1 mg tablet 1 mg PO BID 30 Days Qty: 60 3RF oxycodone 10 mg tablet 10 mg PO BID PRN (Reason: pain) 7 Days Qty: 14 0RF Rx Instructions: Partial Fill upon patient request. fluoxetine 10 mg capsule 10 mg PO DAILY Qty: 90 2RF prednisone 10 mg tablet 10 mg PO DIRECTED 6 Days Qty: 12 0RF Rx Instructions: Take 3 tablets x2 days, 2 tablets x2 days, 1 tablet x2 days azithromycin 250 mg tablet See Rx Instructions PO .COMPLEX Qty: 6 0RF Rx Instructions: For 250 mg dose pack: take 500 mg today (day 1), then 250 mg for 4 days (days 2-5) PO albuterol sulfate 90 mcg/actuation HFA aerosol inhaler 1 inh inhalation QID PRN (Reason: Shortness Of Breath Or Wheezing) Qty: 8.5 2RF cholecalciferol (vitamin D3) [Vitamin D3] 50 mcg (2,000 unit) Capsule 50 mcg PO DAILY Probiotic 10 billion cell Capsule 10,000 mmu cells PO DAILY diclofenac sodium [Aleve (diclofenac)] 1 % gel 2 g topical QID PRN (Reason: pain) Qty: 100 0RF Rx Instructions: apply to single elbow, wrist or hand; for hand includes palm/fingers/back of hand amlodipine 10 mg tablet 10 mg PO DAILY 90 Days Qty: 90 1RF lorazepam 0.5 mg tablet 0.5 mg PO DAILY PRN (Reason: anxiety) 30 Days Qty: 15 2RF sulfamethoxazole-trimethoprim [Bactrim DS] 800-160 mg tablet 1 tab PO BID 7 Days Qty: 14 0RF cephalexin 500 mg capsule 500 mg PO Q8H 7 Days Qty: 21 0RF mupirocin 2 % ointment 1 appl topical BID 21 Days Qty: 22 0RF losartan 25 mg tablet 25 mg PO DAILY Qty: 30 6RF Stand Alone Forms: Work/School Release Print Language: Azeri
[2023-08-16 10:07] LABS: MANUAL DIFF FLAG NO
[2023-08-16 10:15] LABS: Basophils Percent Auto 0.4 % (0-2); Eosinophils Percent Auto 0.3 % (0-4); Hematocrit 44.8 % (37.0-47.0); Hemoglobin 14.8 g/dl (12.0-16.0); Imm Gran Abs Auto 0.06 X10*3/uL (0.00-0.03); Imm Gran Pct Auto 0.5 % (0.0-0.4); Lymphocytes Absolute Auto 2.7 X10*3/uL (1.2-4.9); Lymphocytes Percent Auto 23.7 % (20-40); Mean Corpuscular Hemoglobin 27.5 pg (27.0-33.0); Mean Corpuscular Volume 83.1 fL (80.0-98.0); Mean Platelet Volume 10.3 fL (9.4-12.3); Monocytes Absolute Auto 0.7 X10*3/uL (0.1-1.2); Monocytes Percent Auto 5.7 % (2-11); Neutrophils Absolute Auto 7.9 x10*3/uL (2.0-8.3); Neutrophils Percent Auto 69.4 % (45-73); Platelet Count 394 X10*3/uL (160-400); Red Blood Count 5.39 X10*6/uL (4.20-5.50); Red Cell Distribution Width 12.9 % (11.0-16.0); White Blood Count 11.4 X10*3/uL (4.8-10.8)
[2023-08-16] MEDS: Albuterol Sulfate 2.5 MG, Albuterol/Iprat 2.5/0.5MG 3 ML 3 ML INHALE (10:21)
[2023-08-16 10:22] VITALS: RESP 18; O2SAT 96
[2023-08-16 10:41] LABS: Alanine Aminotransferase 29 U/L (0-31); Albumin Level 4.2 g/dL (3.5-5.0); Alkaline Phosphatase 96 U/L (39-117); Anion Gap 17 (12-20); Aspartate Amino Transferase 19 U/L (5-31); Bilirubin Total 0.3 mg/dL (0.0-1.0); Blood Urea Nitrogen 20 mg/dL (9-16); Calcium 9.5 mg/dL (8.4-10.2); Carbon Dioxide 23 mmol/L (22-29); Chloride 105 mmol/L (96-108); Creatinine Clr Calc Pharmacy 62.2; Estimated Glomerular Filt Rate 51; Glucose Random 98 mg/dL (60-115); Potassium 3.6 mmol/L (3.3-5.1); Sodium 141 mmol/L (135-145); Total Protein 7.7 g/dL (6.5-8.0)
[2023-08-16 12:22] VITALS: BP 158/93; PULSE 88; RESP 18; TEMP 36.7; O2SAT 98
== END 2023-08-16 12:23 | disposition home or self-care (01) ==
PROVIDERS: Registered Nurse Emergency; Emergency Provider Emergency Medicine; PCP Physician Assistant
DX: J06.9 Acute upper respiratory infection, unspecified (principal); J45.909 Unspecified asthma, uncomplicated; I12.9 Hypertensive chronic kidney disease with stage 1 through stage 4 chronic kidney disease, or unspecified chronic kidney disease; N18.9 Chronic kidney disease, unspecified
CPT/HCPCS: 36415; 71046; 80053; 85025; 94640; 99284

== ENCOUNTER 2023-08-19 13:59 | Outpatient (AMB) | payer OTHER, SELFPAY ==
--- NOTE | 2023-08-19 14:02 | A.OFFPC_ITS ---
Vital Signs 08/19/23 14:03 Height 5 ft 4 in BMI Reason not done Patient refused/unable BP 140/80 H Blood Pressure Location Lt brachial Position Sitting Pulse 97 Pulse Source Pulse Oximeter Pulse Oximetry (%) 100 Oxygen Delivery Method Room Air Intake [place] Reasons[place] [facility] [place]15 trouble breathing Intake Note: Patient here for 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: No Accompanied by: Self / Same As Patient Allergies lisinopril [LISINOPRIL] Allergy (Mild, Verified 08/19/23 14:11) COUGHING bupropion [From Wellbutrin] Adverse Reaction (Intermediate, Verified 08/19/23 14:11) Depression duloxetine [From Cymbalta] Adverse Reaction (Intermediate, Verified 08/19/23 14:11) increased depression ibuprofen [From Motrin] Adverse Reaction (Mild, Verified 08/19/23 14:11) Unknown Medication List - Last Reconciled 08/19/23 by Donta Bellamy PA-C albuterol sulfate 90 mcg/actuation 1 inh inhalation QID PRN amlodipine 10 mg PO DAILY 90 days benzonatate 100 mg PO TID PRN cholecalciferol (vitamin D3) (Vitamin D3) 50 mcg PO DAILY diclofenac sodium 1% (Aleve (diclofenac)) 2 grams topical QID PRN fluoxetine 10 mg PO DAILY Lactobacillus acidophilus (Probiotic) 10,000 mmu cells PO DAILY levothyroxine 150 mcg PO DAILY lorazepam 0.5 mg PO DAILY PRN 30 days losartan 25 mg PO DAILY mupirocin 2% 1 appl topical BID 21 days oxycodone 10 mg PO BID PRN 7 days prednisone 60mg (3 tabs) x 3 days, then 40mg (2 tabs) x 3 days, then 20mg (1 tab) x 3 days tizanidine 2 mg PO Q8H 15 days tramadol 50 mg PO Q8H PRN 7 days varenicline 1 mg PO BID 30 days Tobacco use date assessed: 07/21/23 Dental Screening Dental Screen Date: 08/19/23 Did you have a dental visit in the last 12 months?: No Did you have a dental problem in the last 6 months where you did not have access to dental care?: No Was dental information given to patient?: Patient has dentist [facility] [facility] [place] trouble breathing HPI Details Patient is a 47-year-old female here today for ER follow-up visit. Patient reports she was exposed to a client at work that had human metapneumovirus, and now has developed bronchitis. Was seen at the ER for shortness of breath and nonproductive cough that had been worsening even after course of azithromycin and prednisone. X-ray while in the ER was normal, blood testing were stable. Patient was placed back on a prednisone taper. [facility] Medical History Tobacco dependence Cognitive change Hx of transfusion of packed red blood cells Anxiety Depression Personal history of COVID-19 History of lumbar puncture Spinal stenosis in cervical region Abnormal finding on MRI of brain Hypersomnia Numbness and tingling in both hands Fatty liver IgA nephropathy Migraine GERD (gastroesophageal reflux disease) Obesity (BMI 30-39.9) Asthma Vitamin D deficiency delivery delivered Multiple sclerosis CKD (chronic kidney disease) Hypothyroid HTN (hypertension) Surgical History Status post biopsy of kidney History of Cervical disc disease Tubal ligation status Family History Mother Mental health disorder Lung cancer Father Prostate cancer Heart attack, Onset Age: 80 Social History Housing: Apartment Are you a primary health care recruiter to a significant other at home: No Do you presently have visiting nurse or other home services: No Alcohol intake: current Alcohol intake frequency: holidays/special occasions only Comment: Pt states Tylenol usually ineffective, but has prescription med at home Patient Tobacco Use Status: Former Tobacco user Tobacco use type: Cigarette Years Smoked: 11 e-Cigarette/Vaping Use: Never Used Second Hand Smoke Exposure: Yes Advance Directives Date on File: 07/31/22 service: No Current occupational status: employed 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 Current occupational exposures/hazards: No Cognitive needs: No Hearing needs: No Vision needs: No Female Reproductive History Menstrual Age of Menarche: 10 Questionnaire Thrive Questionnaire Date Thrive assessed: 04/06/23 JASPER-7 AMB Questionnaire JASPER-7 Date JASPER - 7 assessed: 04/06/23 Source: Developed by Drs. Jose Martin, Candelaria Brown, Milton Mack and colleagues, with an educational lauren from [employer]. Review of Systems Const Denies headache(s) Eyes Denies loss of vision ENT Denies vertigo, Denies dizziness, Denies headache(s) and Denies sore throat Card Reports dyspnea Resp Reports cough, Reports dyspnea and Denies wheezing GI Denies abdominal pain, Denies melena, Denies constipation, Denies diarrhea and Denies vomiting Denies urinary frequency, Denies dysuria and Denies urinary urgency Musc Denies arthralgias, Denies joint swelling, Denies numbness and Denies tingling Neuro Denies Abnormal speech present, Denies behavioral changes, Denies vertigo, Denies dizziness, Denies headache(s), Denies loss of vision, Denies memory loss, Denies numbness and Denies tingling Psych Denies anxiety, Denies behavioral changes, Denies depression, Denies memory loss and Denies panic attacks Mark/Lymph Denies easy bleeding and Denies easy bruising Aller/Immun Denies wheezing Physical exam (Primary Care) Vital Signs: Last Vital Signs Pulse 97 08/19/23 14:03 BP 140/80 H 08/19/23 14:03 Pulse Ox 100 08/19/23 14:03 Oxygen Delivery Method Room Air 08/19/23 14:03 Tobacco/Smoking Status: Tobacco use Status Tobacco use date assessed 07/21/23 08/19/23 14:09 Patient Tobacco Use Status Former Tobacco user 08/19/23 14:09 Tobacco use type Cigarette 08/19/23 14:09 e-Cigarette/Vaping Use Never Used 08/19/23 14:09 Thrive Assessment: Date of Thrive Assessment Date Thrive assessed 04/06/23 08/19/23 14:09 Const General: healthy appearing, no acute distress, alert and awake Nutritional Appearance: well nourished Orientation/consciousness: oriented to person, oriented to place and oriented to time HENMT Ears: TM's normal bilaterally General nose exam: Normal nasal mucous membranes and turbinates present Eyes Conjunctivae: conjunctivae normal Sclerae: sclerae normal Pupils: Equal, round and reactive pupils present Neck Neck: Yes no lymphadenopathy and Yes no JVD Thyroid: Thyroid normal Carotids: no bruits Resp Effort & Inspection: normal respiratory effort and not tachypneic Auscultation: no crackles, no rales, no rhonchi and no wheezes Cardio Rate: regular rate Rhythm: regular rhythm Heart sounds: no murmurs and normal S1 and S2 GI Palpation (GI): Soft to palpation, nontender, no hepatomegaly and no splenomegaly Auscultation: normal bowel sounds Skin General skin exam: no rashes or lesions noted and dry skin Neuro General: oriented to person, oriented to place and oriented to time Cranial nerves: Yes Equal, round and reactive pupils present Speech: No Abnormal speech present Gait exam (Neuro): Normal gait present Motor exam (neuro): no tremor noted Extrem Right upper extremity: full ROM Left upper extremity: full ROM Right lower extremity: full ROM; no edema Left lower extremity: full ROM; no edema Psych Mental Status: mental status grossly normal Speech and movement: Normal speech and movement present Affect: normal affect Attitude: cooperative Thought process: Normal thought process present Assessment and Plan Assessment & Plan (1) Acute bronchitis: Code(s): J20.9 - Acute bronchitis, unspecified Qualifiers: Bronchitis organism: other organism Qualified Code(s): J20.8 - Acute bronchitis due to other specified organisms Plan: Has had a positive contact with human metapneumovirus. She now has acute bronchitis. Chest x-ray was normal. Now on prednisone taper. Will supply patient with medicated cough syrup to use at night to help rest and reduce cough. Will likely be a self-limiting clinical course. Given note for work Medications: New codeine-guaifenesin 10-100 mg/5 mL Hold lorazepam and oxycodone 5 mL PO BEDTIME PRN 120 mL 0RF cough 5 days J20.8 - Acute bronchitis due to other specified organisms Coding Level of Care Code Est Pt Level 3 (74606) Diagnoses Acute bronchitis due to other specified organisms J20.8 Bronchitis organism: other organism
[2023-08-19 14:03] VITALS: BP 140/80; PULSE 97; O2SAT 100
== END 2023-08-19 14:28 | disposition home or self-care (01) ==
PROVIDERS: PCP Physician Assistant; Visit Provider Physician Assistant
DX: J20.8 Acute bronchitis due to other specified organisms (principal)
CPT/HCPCS: 99213

== ENCOUNTER → 2023-09-01 10:55 | Outpatient (BNV) | payer OTHER, SELFPAY | PROVIDERS: PCP Physician Assistant; Visit Provider Internal Medicine Cardiovascular Disease | DX: R94.31 Abnormal electrocardiogram [ECG] [EKG] (principal) | CPT/HCPCS: 93010 ==

== ENCOUNTER 2023-09-23 11:51 | Day surgery (SDC) | payer OTHER, SELFPAY ==
--- NOTE | 2023-09-01 | ECG_ITS ---
Test Reason : preop Blood Pressure : / mmHG Vent. Rate : 092 BPM Atrial Rate : 092 BPM P-R Int : 136 ms QRS Dur : 082 ms QT Int : 342 ms P-R-T Axes : 052 020 088 degrees QTc Int : 422 ms Normal sinus rhythm Nonspecific T wave abnormality Abnormal ECG When compared with ECG of 23-JUL-2022 12:50, No significant change was found Referred By: Montse Mathew Electronically Signed By:SUNITA HERMOSILLO MD
[2023-09-01 10:18] VITALS: BP 145/86; PULSE 89; RESP 18; O2SAT 96; BMI 33.6
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
[2023-09-23] VITALS (9 sets, daily range): BP systolic 116–152; BP diastolic 66–96; PULSE 79–98; RESP 14–20; TEMP 36.2–37.1; O2SAT 92–99; BMI 33.8
--- NOTE | ~2023-09-23 | FL_ITS ---
EXAMINATION: XR FLUOROSCOPY WITH IMAGES CLINICAL INFORMATION: Redo L4-L5 decompression, right. COMPARISON: None available. TECHNIQUE: Fluoroscopy Supervised By: Dr. Mandel. Fluoroscopy Time: 2 sec. Cumulative Dose: 0.8578 mGy. DAP: 0.3731 Gycm2. Images: 2. FINDINGS: Intraoperative fluoroscopy and spot films were performed during a procedure in the OR. A probe is present at the L4-L5 interspace level. Please correlate with Dr. Mandel' report for complete details. FL/FL guidance in OR IMPRESSION: Intraoperative fluoroscopy and spot films were obtained. Please see Dr. Mandel' report for complete details.
--- NOTE | 2023-09-23 12:03 | MHC.SHP ---
Pre-Procedural Eval Section A - 24 Hr Update-Section A only Date of Service: 09/23/23 The patient is an INPATIENT: No Section B - Complete if H&P > 30 days Chief Complaint: Spinal stenosis, lumbar region without neurogenic Allergies: Allergies Allergy/AdvReac Type Severity Reaction Status Date / Time lisinopril [LISINOPRIL] Allergy Mild COUGHING Verified 08/19/23 14:11 bupropion [From Wellbutrin] AdvReac Intermediate Depression Verified 08/19/23 14:11 duloxetine [From Cymbalta] AdvReac Intermediate increased Verified 08/19/23 14:11 depression ibuprofen [From Motrin] AdvReac Mild Unknown Verified 08/19/23 14:11 Review of Systems Sugical H&P ROS: Negative: Constitution, Cardiovascular, Respiratory, Neurological, Psychiatric, Hem-Onc, Allergic/Immunologic, Gastrointestinal, Genitourinary, Musculoskeletal, Integumentary, Endocrine and Eyes/Ears/Nose/Throat Exam Surgical H&P Exam: Normal: HEENT, Normal: Heart, Normal: Lungs, Normal: Extremities, Normal: Abdomen, Normal: Skin and Normal: Neurological (Awake, alert. No motor deficits) Plan Diagnosis/Plan: Unchanged Right L4-5 decompression,redo Time Spent With Patient Time: Total time managing care of this patient today _5___ minutes.
[2023-09-23] MEDS: methocarbamoL 750 MG TABLET PO (12:21)
[2023-09-23] MEDS: Gabapentin 300 MG CAPSULE PO (12:22)
[2023-09-23] MEDS: Lactated Ringers 1,000 ML 100 ML IVCONT (12:34)
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
--- NOTE | 2023-09-23 15:46 | P.DS_ITS ---
DS: Providers Provider Date of Service: 09/23/23 Primary care physician: Donta Bellamy PA-C DS: Summary Time Attestation Discharge Coordination Time (in mins): 15 Quality: Safe Use of Opioids Does Pt have an Active Cancer Diagnosis on the Problem List?: No Quality: Stroke Does the patient have a stroke diagnosis?: No Physical Exam Vital Signs: Vital Signs: Last Vital Signs Temp 97.5 F 09/23/23 11:59 Pulse 82 09/23/23 11:59 Resp 20 09/23/23 11:59 BP 126/72 09/23/23 11:59 Pulse Ox 97 09/23/23 11:59 O2 Del Method Room Air 09/23/23 11:59 BMI result Body Mass Index 33.8 Discharge Plan Discharge Patient Disposition: Home, Self-Care Referrals: Donta Bellamy PA-C [Primary Care Provider] - 1 Week Discharge Medications: New oxycodone 5 mg tablet 5 mg PO Q6H PRN (Reason: severe pain (scale score 7-10)) Qty: 30 0RF Rx Instructions: Partial Fill upon patient request. Continued levothyroxine 150 mcg tablet 150 mcg PO DAILY Qty: 90 2RF tramadol 50 mg tablet 50 mg PO Q8H PRN (Reason: pain) 7 Days Qty: 21 2RF tizanidine 2 mg tablet 2 mg PO Q8H 15 Days Qty: 45 3RF varenicline 1 mg tablet 1 mg PO BID 30 Days Qty: 60 3RF fluoxetine 10 mg capsule 10 mg PO DAILY Qty: 90 2RF albuterol sulfate 90 mcg/actuation HFA aerosol inhaler 1 inh inhalation QID PRN (Reason: Shortness Of Breath Or Wheezing) Qty: 8.5 2RF oxycodone 10 mg tablet 10 mg PO BID PRN (Reason: pain) 7 Days Qty: 14 0RF Rx Instructions: Partial Fill upon patient request. cholecalciferol (vitamin D3) [Vitamin D3] 50 mcg (2,000 unit) Capsule 50 mcg PO DAILY amlodipine 10 mg tablet 10 mg PO DAILY 90 Days Qty: 90 1RF lorazepam 0.5 mg tablet 0.5 mg PO DAILY PRN (Reason: anxiety) 30 Days Qty: 15 2RF losartan 25 mg tablet 25 mg PO DAILY Qty: 30 6RF Discharge Orders: Discharge Order (Routine); Ordered 09/23/23 Ordered By: Thang Oscar Diet: Advance to usual diet Activity on Discharge: As tolerated Activity Restrictions/Additional Instructions: After your spinal surgery we ask you to observe the following restrictions/guidelines: Activity: It is normal to feel some discomfort as you increase your activity, but that will improve with time. We ask you avoid heavy lifting or acitivities that cause pain. As a general rule, 8lbs is a safe limit for lifting right after surgery. Walk as much as you feel comfortable but not to exhaustion. You will feel extra tired the first few days after surgery. Stay well hydrated. It is OK to walk up and down stairs You may return to driving when you are off narcotics (such as vicodin, oxycodone, dilaudid, etc), and you are back to normal functional capacity. If you have any concerns please check with office before driving. Return to work is specific to each patient and each surgery, so please speak with your doctor/PA at first follow up. Please bring paperwork such as FMLA at that time if you need it filled out. Medications: We will give you a short supply of narcotics after surgery (usually one weeks worth). If you need more please call the office but do not use more than prescribed. You will need to give our office 48 hours notice if you need narcotics refilled and we do not fill narcotics on weekends or evenings. If you are on a narcotic, it is a good idea to take a stool softener such as colace or senna to avoid constipation If you take blood thinner such as aspirin, Plavix, Coumadin, Effient, Eliquis etc for conditions such as Afib, DVT, Pulmonary embolus, coronary disease, stents etc please speak with your surgeon about specific details as to when you can resume these medications. You can resume NSAIDs on post op day 1 (eg: Motrin, Naproxen, etc). Follow up: Please call the office, , after surgery to arrange a 3 week follow up for wound check. Wound Care: You may remove your dressing on the first day after surgery. ?You may ?leave open to air. Please do not remove the steri strips underneath. they will fall off on their own in one week. IT IS NORMAL FOR THE WOUND TO OOZE OR BE BLOODY FOR A FEW DAYS AFTER SURGERY. ?IF THIS HAPPENS JUST PLACE NEW DRESSING OVER IT TO AVOID STAINING CLOTHES. You may shower on post op day # 1 We ask that you do not let the water soak the wound. If it does get wet, just towel dry lightly. Please do not scrub your incision or place any type of chemical/ointment on the wound. No tub baths, pools or jacuzzis for one month. If you have any leaking or redness from your wound, or fevers, please call the office. Print Language: Divehi
--- NOTE | 2023-09-23 15:50 | HO.POSTANES ---
Post Anesthesia Evaluation Post Anesthesia Evaluation Date of Service: 09/23/23 Vital Signs: Vital Signs Temp Pulse Resp BP Pulse Ox O2 Del Method 09/23/23 11:59 97.5 F 82 20 126/72 97 Room Air Anesthesia: General Endotracheal-GETA Mental Status: Awake Pain Control: Satisfactory Nausea/Vomiting: None Hydration: Adequate Anesthesia-Related Issues: No Anes. Related Issues
[2023-09-23] MEDS: HYDROmorphone HCl 0.5 MG/0.5 ML SYRINGE 0.25 MG IVPUSH ×2 (16:31→16:36)
== END 2023-09-23 17:06 | disposition home or self-care (01) ==
PROVIDERS: PCP Physician Assistant; Visit Provider Neurological Surgery
PROC: (CPT 63047; principal; 2023-09-23 16:10)
DX: M48.061 Spinal stenosis, lumbar region without neurogenic claudication (principal); M54.16 Radiculopathy, lumbar region; I12.9 Hypertensive chronic kidney disease with stage 1 through stage 4 chronic kidney disease, or unspecified chronic kidney disease; N18.9 Chronic kidney disease, unspecified; G35 Multiple sclerosis; F41.1 Generalized anxiety disorder; J45.909 Unspecified asthma, uncomplicated; Z79.899 Other long term (current) drug therapy; Z88.8 Allergy status to other drugs, medicaments and biological substances; Z88.6 Allergy status to analgesic agent; Z87.891 Personal history of nicotine dependence
CPT/HCPCS: 63047; 93005; J0131; J0690; J1100; J1170; J1596; J1885; J2250; J2405; J2704; J3010

== ENCOUNTER → 2023-09-23 11:51 | Outpatient (BNV) | payer OTHER, SELFPAY | PROVIDERS: PCP Physician Assistant; Visit Provider Neurological Surgery | DX: M48.061 Spinal stenosis, lumbar region without neurogenic claudication (principal) | CPT/HCPCS: 63047; 99499 ==

== ENCOUNTER 2023-10-13 15:03 | Outpatient (AMB) | payer OTHER, SELFPAY ==
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
== END 2023-10-13 15:28 | disposition home or self-care (01) ==
PROVIDERS: PCP Physician Assistant; Visit Provider Physician Assistant
DX: Z98.890 Other specified postprocedural states (principal)
CPT/HCPCS: 99024

== ENCOUNTER → 2023-10-13 15:03 | Outpatient (BNVA) | payer OTHER, SELFPAY | PROVIDERS: PCP Physician Assistant; Visit Provider Physician Assistant | DX: Z48.89 Encounter for other specified surgical aftercare (principal) | CPT/HCPCS: 99212 ==

== ENCOUNTER 2023-11-25 10:31 | Outpatient (AMB) | payer OTHER, SELFPAY ==
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
== END 2023-11-25 11:33 | disposition home or self-care (01) ==
PROVIDERS: PCP Physician Assistant; Visit Provider Physician Assistant
DX: Z98.890 Other specified postprocedural states (principal)
CPT/HCPCS: 99024

== ENCOUNTER → 2023-11-25 10:31 | Outpatient (BNVA) | payer OTHER, SELFPAY | PROVIDERS: PCP Physician Assistant; Visit Provider Physician Assistant | DX: Z48.89 Encounter for other specified surgical aftercare (principal) | CPT/HCPCS: 99212 ==

== ENCOUNTER 2023-12-13 14:58 | Outpatient (AMB) | payer OTHER, SELFPAY ==
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
[2023-12-13 15:03] VITALS: BP 120/64; PULSE 85; O2SAT 97; BMI 33.6
== END 2023-12-13 15:39 | disposition home or self-care (01) ==
PROVIDERS: PCP Physician Assistant; Visit Provider Physician Assistant
DX: I10 Essential (primary) hypertension (principal); E66.811 Obesity, class 1; Z68.33 Body mass index [BMI] 33.0-33.9, adult; Z98.890 Other specified postprocedural states

== ENCOUNTER → 2023-12-13 14:58 | Outpatient (BNVA) | payer OTHER, SELFPAY | PROVIDERS: PCP Physician Assistant; Visit Provider Physician Assistant | DX: E66.811 Obesity, class 1 (principal); Z68.33 Body mass index [BMI] 33.0-33.9, adult; I10 Essential (primary) hypertension; Z79.899 Other long term (current) drug therapy; Z98.890 Other specified postprocedural states | CPT/HCPCS: 96127; 99212 ==

== ENCOUNTER 2023-12-23 08:53 | Outpatient (AMB) | payer OTHER, SELFPAY ==
[2023-12-23 08:56] VITALS: BP 140/82; BMI 33.6
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
== END 2023-12-23 09:20 | disposition home or self-care (01) ==
PROVIDERS: PCP Physician Assistant; Visit Provider Psychiatry & Neurology Neurology
DX: G47.33 Obstructive sleep apnea (adult) (pediatric) (principal); G47.61 Periodic limb movement disorder; M48.02 Spinal stenosis, cervical region; M48.061 Spinal stenosis, lumbar region without neurogenic claudication; M54.16 Radiculopathy, lumbar region
CPT/HCPCS: 99214

== ENCOUNTER → 2023-12-23 08:53 | Outpatient (BNVA) | payer OTHER, SELFPAY | PROVIDERS: PCP Physician Assistant; Visit Provider Psychiatry & Neurology Neurology ==

== ENCOUNTER 2024-01-08 09:16 | Outpatient (REF) | payer OTHER, SELFPAY ==
[2024-01-08 09:39] LABS: Hematocrit 43.1 % (37.0-47.0); Mean Corpuscular HGB Conc 32.5 g/dl (31.0-35.0); Mean Corpuscular Hemoglobin 27.1 pg (27.0-33.0); Mean Corpuscular Volume 83.4 fL (80.0-98.0); Mean Platelet Volume 10.6 fL (9.4-12.3); Platelet Count 351 X10*3/uL (160-400); Red Blood Count 5.17 X10*6/uL (4.20-5.50); Red Cell Distribution Width 13.6 % (11.0-16.0); White Blood Count 7.5 X10*3/uL (4.8-10.8)
[2024-01-08 10:17] LABS: Estimated Average Glucose 108 mg/dL; Hemoglobin A1C 125.3517 umol/L; Hemoglobin A1c % 5.4 % (<6.0); Total Hemoglobin (HGBA1C) 3512.1025 umol/L
[2024-01-08 10:24] LABS: Alanine Aminotransferase 61 U/L (0-31); Albumin Level 4.1 g/dL (3.5-5.0); Alkaline Phosphatase 110 U/L (39-117); Anion Gap 13 (12-20); Aspartate Amino Transferase 40 U/L (5-31); Bilirubin Total 0.3 mg/dL (0.0-1.0); Blood Urea Nitrogen 14 mg/dL (9-16); Carbon Dioxide 24 mmol/L (22-29); Chloride 109 mmol/L (96-108); Estimated Glomerular Filt Rate 54; Glucose Fasting 109 mg/dL (60-99); Sodium 142 mmol/L (135-145); Total Protein 7.4 g/dL (6.5-8.0)
[2024-01-08 10:43] LABS: TSH reflex Free T4 0.61 uIU/mL (0.32-4.0)
[2024-01-08 10:52] LABS: Creatinine Urine 160.14 mg/dL; Microalbum/Creatinine Ratio Ur 463.3 ug/mg cr (<30)
== END 2024-01-08 09:17 | disposition home or self-care (01) ==
LOC: HO.LAB 09:16
PROVIDERS: PCP Physician Assistant; Visit Provider Physician Assistant
DX: E03.9 Hypothyroidism, unspecified (principal); N18.2 Chronic kidney disease, stage 2 (mild); R73.09 Other abnormal glucose
CPT/HCPCS: 36415; 80053; 82043; 82570; 83036; 84443; 85027

== ENCOUNTER 2024-03-24 14:56 | Outpatient (REF) | payer OTHER, SELFPAY | END 2024-03-24 14:57 | disposition home or self-care (01) | LOC: HO.MAMMO 14:56 | PROVIDERS: PCP Physician Assistant; Visit Provider Physician Assistant | DX: Z12.31 Encounter for screening mammogram for malignant neoplasm of breast (principal) | CPT/HCPCS: 77063; 77067 ==

== ENCOUNTER 2024-05-23 08:26 | Outpatient (REF) | payer OTHER, SELFPAY ==
--- NOTE | ~2024-05-23 | MM_ITS ---
EXAMINATION: MM DIAGNOSTIC DIGITAL BREAST TOMOSYNTHESIS, RIGHT Limited right breast ultrasound. CLINICAL INFORMATION: Call back from screening for focal asymmetry in the lower inner right breast posterior depth. COMPARISON: Mammography: Priors on PACS TECHNIQUE: Digital breast tomosynthesis is performed in both the craniocaudal and mediolateral oblique views along with computer-aided detection (CAD). Synthesized 2D images are generated from the tomosynthesis. FINDINGS: The breasts are heterogeneously dense, which may obscure small masses (ACR BI-RADS breast composition Category c). Circumscribed oval mass in the lower inner breast posterior depth persist on additional imaging projections. No suspicious calcifications or other abnormal findings. Targeted color Doppler ultrasound demonstrates probable adjacent simple to minimally complicated cysts with thin intervening septation 3:00 7 cm from nipple measuring 7 x 6 x 7 mm. There is no internal vascular flow. MM/MM tomosynthesis added views R IMPRESSION: Probable adjacent minimally complicated cysts with thin intervening septations. Probably benign. Recommend 6 month follow-up ultrasound for further evaluation of stability. ASSESSMENT: BI-RADS BI-RADS 3 - Probably benign finding(s) - 6 month follow-up suggested RECOMMENDATION: 6 Month F/U Results were provided to the patient at time of visit by the technologist. This patient's information was entered into a reminder system with a target due date for their next mammogram. Electronically signed by: Sharyn Live DO 05/23/2024 10:31 AM EDT
--- OUTSIDE RECORDS SUMMARY | 2024-05-23 08:40 | XMS_ITS ---
Author Organization [employer] Address [address] [facility] [address] [place] [address] Care Team Providers Care Surg Rn Name Role Phone DHAVAL TORREZ Primary Care Provider BINA Aleman Unavailable [phone] REASON FOR VISIT Annual DIGITAL ASSISTANT Physical Encounters Encounter Location Date Provider Diagnosis [facility] [address] [place] [address] 04/28/2024 BINA HUANG Plan Of Treatment Next Appt Details Provider Name:BINA Lin, 05/04/2025 08:50:00 AM, [address] [facility], [address], [place], [address], Progress Notes * NORMA HEADDOB:1975 (48 yo F)Acc No.[id number]:04/28/2024 PROGRESS NOTES Patient:?NORMA HEAD Provider:LILIANA HUANG MD :1975???Age:48 Y???Sex:Female D ate:04/28/2024 Address:[address] [place] [address] Pcp:GRABIEL EDWARDS Subjective: * Chief Complaints: * ???1. Annual DIGITAL ASSISTANT Physical. * Medical History:? Objective: * Vitals:? Assessment: Plan: * Treatment: * Images: Billing Information: * Visit Code:? * Procedure Codes:? * Electronic signature of BINA HUANG MD on 05/23/2024 at 08:39 AM EDT Sign off status: Pending * Provider:?BINA HUANG MD Date:?2024 Generated for Marcelo sampson/Sandra/Yosef on:?05/23/2024 08:39 AM EDT
--- OUTSIDE RECORDS SUMMARY | 2024-05-23 08:40 | XMS_ITS | Clinical Summary ---
Author Organization [facility] Facility Address [address] [place] [address] Care Team Providers Care Fabricating Machine Operator Name Role Phone Donta Bellamy Primary Care Provider [phone] Allergies Active Allergy Reactions Criticality Noted Date Comments Lisinopril 04/27/2022 Medications albuterol HFA (PROVENTIL HFA;VENTOLIN HFA) 108 (90 Base) MCG/ACT inhaler Inhale 2 puffs every 6 (six) hours if needed for wheezing Active amLODIPine (NORVASC) 10 MG tablet Take 5 mg by mouth 1 (one) time each day Active levothyroxine sodium (TIROSINT) 150 MCG capsule Take 150 mcg by mouth 1 (one) time each day Active LORazepam (ATIVAN) 0.5 MG tablet Take 0.5 mg by mouth every 6 (six) hours if needed for anxiety Active gabapentin (NEURONTIN) 100 MG capsule Take 100 mg by mouth in the morning and 100 mg in the evening and 100 mg before bedtime. Active losartan (Cozaar) 100 MG tablet Take 1 tablet (100 mg total) by mouth 1 (one) time each day 360 tablet 06/18/2022 Active oxyCODONE (OXY-IR) 5 MG immediate release capsule Take 5 mg by mouth every 4 (four) hours if needed for moderate pain Active Active Problems Problem Noted Date Diagnosed Date Chronic kidney disease stage 3 06/18/2022 Essential hypertension 06/18/2022 Family History Medical History Relation Comments Cancer Father Heart disease Father Mental illness Mother Relation Status Comments Father Mother Social History Tobacco Use Types Packs/Day Years Used Date Smoking Tobacco: Every Day Cigarettes Smokeless Tobacco: Never Tobacco Cessation:Ready to Q uit: Not Asked; Counseling Given: Not Answered Alcohol Use Standard Drinks/Week Comments Yes 0 (1 standard drink = 0.6 oz pur e alcohol) Comments Unknown Sex and Gender Information Value Date Recorded Sex Assigned at Not on file Legal Sex Female 3:09 PM EST Gender Identity Not on file Sexual Orientation Not on file Last Filed Vital Signs Vital Sign Reading Time Taken Comments Blood Pressure 137/80 10/08/2022 4:04 PM EDT Pulse 85 10/08/2022 4:04 PM EDT Temperature - - Respiratory Rate - - Oxygen Saturation 97% 10/08/2022 4:04 PM EDT Inhaled Oxygen Concentration - - Weight 86.2 kg (190 lb) 06/18/2022 1:33 PM EDT Height - - Body Mass Index - - Plan of Treatment Health Maintenance Due Date Last Done Comments Breast Cancer Screening 1975 Pneumococcal Vaccine: Pediat rics (0 to 5 Years) and At-Risk Patients (6 to 64 Years) (1 of 2 - PCV) 10/23/1979 Hepatitis B Vaccine (1 of 3 - 19+ 3-dose series) 10/22 Colorectal Cancer Screening: Annual FOBT 2022 Colorectal Cancer Screening: Colonoscopy 2022 Colorectal Cancer Screening: Sigmoidoscopy 2022 Influenza Vaccine (#1) 2023 Insurance [employer] CIG Care Teams Fabricating Machine Operator Relationship Specialty Start Date End Date Donta Bellamy PA [address] [place] [address], [address] [place] [address] PCP - General Physician Goat Driver 01/20/22
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
--- OUTSIDE RECORDS SUMMARY | 2024-05-23 08:40 | XMS_ITS | Clinical Summary ---
Author Organization [facility] Address [address] [place] [address] Care Team Providers Care Gas Producer Name Role Phone Unavailable Primary Care Provider Unavailabl e Social History Tobacco Use Types Packs/Day Years Used Date Smoking Tobacco: Never Assessed Comments Unknown Sex and Gender Information Value Date Recorded Sex Assigned at Not on file Legal Sex Female 5:51 AM EST Gender Identity Not on file Sexual Orientation Not on file Plan of Treatment Health Maintenance Due Date Last Done Comments Breast Cancer Screening 1975 DTaP,Tdap,and Td Vaccines (1 - Tdap) 1992 Hepatitis B Vaccines (1 of 3 - 19+ 3-dose series) 1992 Cervical Cancer Screening: P ap Smear 1994 Colorectal Cancer Screening: Colonoscopy 02/08/2022 Depression Screening 02/08/2022 HIV Screening 02/08/2022 Hepatitis C Screening 02/08/2022 Social Influencers of Health Screening 02/08/2022 Pneumococcal Vaccine: 50+ Ye ars (1 of 1 - PCV) 10/23/2023 Zoster Vaccines (1 of 2) 10/23/2023 COVID-19 Vaccine (1 - 2023-2 5 season) 2023 Influenza Vaccine (#1) 2023 HIB Vaccines Aged Out No longer eligi ble based on patient's age to complete this topic HPV Vaccines Aged Out No longer eligi ble based on patient's age to complete this topic Hepatitis A Vaccines Aged Out No long er eligible based on patient's age to complete this topic IPV Vaccines Aged Out No longer eligi ble based on patient's age to complete this topic MMR Vaccines Aged Out No longer eligi ble based on patient's age to complete this topic Meningococcal ACWY Vaccine Aged Out N o longer eligible based on patient's age to complete this topic Meningococcal B Vacine Aged Out No lo nger eligible based on patient's age to complete this topic Pneumococcal Vaccine: Pediat rics (0 to 5 Years) and At-Risk Patients (6 to 64 Years) Aged Out No longer eligible b ased on patient's age to complete this topic RSV Immunization Patients Un chele 20 months Aged Out No longer eligible b ased on patient's age to complete this topic Varicella Vaccines Aged Out No longer eligible based on patient's age to complete this topic
--- OUTSIDE RECORDS SUMMARY | 2024-05-23 08:40 | XMS_ITS | Patient Health Record ---
Author Organization [employer] Address [address] [place] [address] Care Team Providers Care Neighborhood Worker Name Role Phone DHAVAL TORREZ Primary Care Provider BINA Aleman Unavailable [phone] Allergies Allergen (clinical drug ingredient) Drug/Non Drug Allergy documented on EMR Reaction Allergy Type Onset Date Status lisinopril Lisinopril Cough Drug Allergy Activ e Results Component Value Reference Range Notes [id number] IGP No Culture 30 Plus Reviewed date:05/12/2024 11:59:05 AM Interpretation: Performing Lab:[facility] [place], Denise [address], [address], [place], Phone - [phone], Director - [facility] Notes/Report: Clinical Information:VAG/CERV [id number] LMP / Prev Treat...[id number] Dates / Results....04/23/23 No. of containers..01 ThinPrep Vial DIAGNOSIS: NEGATIVE FOR INTRAEPITHELIAL LESION OR MALIGNANCY. PREDOMINANCE OF COCCOBACILLI CONSISTENT WITH SHIFT IN VAGINAL ALICE IS PRESENT. Specimen adequacy: Satisfactory for evaluation. Endocervical and/or squamous metaplastic cells (endocervical component) are present. Areas of partially obscuring inflammatory exudate are present. Clinician provided ICD10: Z0 1.419 Performed by: Chaka Tomlin , Lockstitch Pocket Setter (ASCP) . . Note: The Pap smear [...] Report Reviewed date:05/15/2024 02:54:49 PM Interpretation: Performing Lab:[facility], Denise Casas, [address], [place], Phone - [phone], Director - [facility] Notes/Report: Clinical Information:VAG/CERV [id number] LMP / Prev Treat...[id number]=[id number] Dates / Results....04/23/23 No. of containers..01 ThinPrep Vial Reason For Referral No Information Medications Medication SIG (Take, Route, Frequency, Duration) Notes Start Date End Date Status FLUoxetine HCl 10 MG Oral for 90 Days Active tiZANidine HCl 2 MG Oral for 15 Days Not-Taking Levothyroxine Sodium 150 MCG 1 tablet in the morning on an empty stomach Orally Once a day for 30 day(s) Active amLODIPine Besylate 5 MG 1 tablet Orally Once a day Active Losartan Potassium 50 MG 1 tablet Orally Once a day for 30 day(s) Active LORazepam 0.5 MG 1 tablet at bedtime as needed Orally Once a day Active Varenicline Tartrate 1 MG Oral for 90 Days Active oxyCODONE HCl 5 MG 1 tablet [...] Tobacco non-user Ex-light c igarette smoker (1-9/day) Problems Problem Type SNOMED Code ICD Code Onset Dates Problem Status W/U Status Risk Notes Problem Human papilloma virus deoxyribonucleic acid test positive, high risk on vaginal specimen (516252579758700) Cervical high risk human papillomavirus (HPV) DNA test positive (R87.810) Active confirmed Problem Essential hypertension (87888693) Essential (primary) hypertension (I10) Active confirmed Problem Hypothyroidism (82234343) Hypothyroidism, unspecified (E03.9) Active confirmed Problem Anxiety disorder (186202336) Anxiety disorder, unspecified (F41.9) Active confirmed Problem Intrauterine contraceptive device in situ (finding) (736055092) Presence of (intrauterine) contraceptive device (Z97.5) Active confirmed Problem Endometriosis (527890599) Endometriosis, unspecified (N80.9) Active confirmed Problem COVID-19 (370807785) COVID-19 (U07.1) Active confirmed Problem Chronic kidney disease stage 3 (disorder) (885731579) Chronic kidney disease, stage 3 unspecified (N18.30) Active confirmed Vital Signs Temperature 98.0 degrees Fahrenheit 05/04/2024 Blood pressure diastolic 78 mm Hg 05/04/2024 Height 66 in 05/04/2024 Blood pressure systolic 136 mm Hg 05/04/2024 Weight 190 lbs 05/04/2024 BMI 30.66 kg/m2 05/04/2024 Encounters Encounter Location Date Provider Diagnosis [address] [address] 05/04/2024 BINA HUANG Encounter for gynecological examination [...] for control of menorrhagia Plan Of Treatment Pending Test Test Name Order Date ULTRASOUND: PELVIC W/TRANSVAGINAL 2020 MM Digital Screening Mammogram 3D 2022 MM Digital Screening Mammogram 3D 2023 MM Digital Screening Mammogram 3D 2024 Next Appt Details Provider Name:BINA Lin, 05/04/2025 08:50:00 AM, [address], [address], [place], [address], Insurance Providers Payer Name Payer Address Payer Phone Subscriber Number Group Number Insured Name Patient Relationship to Insured Coverage Start Date Coverage End Date [employer] [address] [place] [address] [phone] [id number] NORMA HEAD Self - patient is the insured Medical (General) History Medical History History ICD Code Hypothyroidism, unspecified E03.9 Anxiety disorder, unspecified F41.9 Endometriosis, unspecified N80.9 Chronic kidney disease, stage 3 unspecif ied N18.30 COVID-19 U07.1 Essential (primary) hypertension I10 Surgical History Surgery Date(Month/Year) 1992 Fusion 2011 BTL 1994 Laser [facility] Biopsy 1999 Lumbar decompression Nov 2022 Neck Fusion July 2022 L3-L4 laminectomy September 2023 Hospitalization History Reason Date(Month/Year) See Surgical History
== END 2024-05-23 08:27 | disposition home or self-care (01) ==
LOC: HO.MAMMO 08:26
PROVIDERS: PCP Physician Assistant; Visit Provider Physician Assistant
DX: N64.89 Other specified disorders of breast (principal)
CPT/HCPCS: 76642; 77061; 77065

== ENCOUNTER → 2024-05-23 08:30 | Outpatient (BNV) | payer OTHER, SELFPAY | PROVIDERS: PCP Physician Assistant; Visit Provider Internal Medicine | DX: R92.8 Other abnormal and inconclusive findings on diagnostic imaging of breast (principal) | CPT/HCPCS: 76642; 77061; 77065 ==

== ENCOUNTER 2024-07-26 14:52 | Emergency (ER) | payer OTHER, SELFPAY ==
--- NOTE | ~2024-07-26 | CT_ITS ---
CLINICAL HISTORY: L flank pain CT abdomen and pelvis without IV contrast. COMPARISON: None FINDINGS: Partially visualized lung bases are unremarkable. Gallbladder is contracted. Non-contrasted appearance of the liver, spleen, adrenal glands, and pancreas are unremarkable. No renal or ureteral calculi. No hydronephrosis or hydroureter. Diminutive appendix. No bowel obstruction. Small oval pericolonic fat containing mass within hyperattenuating ring mild surrounding inflammatory changes along the distal descending colon. No mesenteric or retroperitoneal lymphadenopathy. Normal abdominal aorta. Normal appearance of the urinary bladder. No adnexal mass. IUD appears appropriately seated within the uterine fundus/body. Likely tubal ligation clips. Moderate lower lumbar spondylosis. No fracture identified. IMPRESSION: 1. Distal descending colon epiploic appendagitis. No evidence of abscess or free intraperitoneal air 2. No evidence of renal obstruction. No renal or ureteral calculus. This document has been electronically signed by: Saw Moreno MD on 07/26/2024 17:10:53
[2024-07-26 14:58] VITALS: BP 135/80; PULSE 81; RESP 18; TEMP 36.2; O2SAT 98; BMI 33.0
--- NOTE | 2024-07-26 14:58 | ED_ITS ---
HPI - Abdominal Pain General Chief Complaint: General Medical Stated Complaint: Kidney Pain, L Leg Rash Time Seen by Provider: 07/26/24 16:14 Source: patient, RN notes reviewed and old records reviewed Mode of arrival: ambulatory History of Present Illness ED Provider: Marisa Maurice PA-C HPI narrative: 48-year-old female with a past medical history [place], anxiety, depression, GERD, asthma, CKD, hypothyroid, HTN, presenting to the ED complaining of left flank pain x 3 days with associated nausea. Admits pain is intermittent. Also reports some loose stools and urinary frequency. Denies fever, chills, vomiting, dysuria/hematuria. Also reports rash noted to left ankle x this morning, denies any new exposures, SOB, throat closing sensation Related Data Home Medications ?Medication ?Instructions ?Recorded ?Confirmed cholecalciferol (vitamin D3) 50 50 mcg PO DAILY 11/04/22 12/23/23 mcg (2,000 unit) capsule (Vitamin D3) Previous Rx's ?Medication ?Instructions ?Recorded tizanidine 2 mg tablet 2 mg PO Q8H muscle spasticity 15 05/25/23 days #45 tabs albuterol sulfate 90 mcg/actuation 1 inh inhalation QID PRN Shortness 08/13/23 aerosol inhaler Of Breath Or Wheezing #8.5 grams baclofen 10 mg tablet 10 mg PO TID muscle spasms #30 tabs 11/29/23 losartan 25 mg tablet 25 mg PO DAILY #30 tabs 12/22/23 gabapentin 300 mg capsule 300 mg PO BEDTIME #30 caps 12/23/23 liraglutide (weight loss) 3 mg/0.5 See Rx Instructions subcut 12/27/23 mL (18 mg/3 mL) subcut pen .COMPLEX 4 weeks #15 mL injector (Saxenda) sumatriptan succinate 25 mg tablet See Rx Instructions PO .COMPLEX 30 03/06/24 days #9 tabs levothyroxine 150 mcg tablet 150 mcg PO DAILY #90 tabs 04/14/24 lorazepam 0.5 mg tablet 0.5 mg PO DAILY PRN anxiety 30 05/22/24 days #15 tabs oxycodone 5 mg tablet 5 mg PO BID PRN pain 7 days #14 06/28/24 tabs fluoxetine 20 mg capsule 20 mg PO DAILY 90 days #90 caps 07/06/24 amlodipine 10 mg tablet 10 mg PO DAILY 90 days #90 tabs 07/16/24 varenicline tartrate 1 mg tablet 1 mg PO BID 30 days #60 tabs 07/18/24 acetaminophen 500 mg tablet 500 mg PO Q6H PRN fever or pain 07/26/24 (Tylenol Extra Strength) #14 tabs hydrocortisone 1 % topical cream 1 appl topical BID PRN rash #28.35 07/26/24 (Anti-Itch (hydrocortisone)) grams ibuprofen 600 mg tablet 600 mg PO Q8H PRN fever or pain 07/26/24 #14 tabs Allergies Allergy/AdvReac Type Severity Reaction Status Date / Time lisinopril [LISINOPRIL] Allergy Mild COUGHING Verified 07/26/24 15:02 bupropion [From Wellbutrin] AdvReac Intermediate Depression Verified 07/26/24 15:02 duloxetine [From Cymbalta] AdvReac Intermediate increased Verified 07/26/24 15:02 depression ibuprofen [From Motrin] AdvReac Mild Unknown Verified 07/26/24 15:02 Review of Systems Review of Systems Yes all other systems are reviewed and are negative Constitutional: Reports as per HPI [facility] Past Medical History Attestation statement: The following information was validated with the patient. Source: old records reviewed Medical History Periodic limb movement disorder Obstructive sleep apnea hypopnea, moderate Cervical radiculopathy, acute Back pain Sleep apnea Bronchitis Cognitive change Hx of transfusion of packed red blood cells Anxiety Depression Personal history of COVID-19 History of lumbar puncture Tobacco dependence Spinal stenosis in cervical region Abnormal finding on MRI of brain Hypersomnia Numbness and tingling in both hands Fatty liver IgA nephropathy Migraine GERD (gastroesophageal reflux disease) Obesity (BMI 30-39.9) Asthma Vitamin D deficiency delivery delivered Multiple sclerosis CKD (chronic kidney disease) Hypothyroid HTN (hypertension) Surgical History H/O laminectomy History of cervical spinal surgery History of lumbar surgery Status post biopsy of kidney History of Cervical disc disease Tubal ligation status Family History Family History Mother Mental health disorder Lung cancer Father Prostate cancer Heart attack, Onset Age: 80 Social History Social History Housing: Apartment Are you a primary care process manager to a significant other at home: No Do you presently have visiting nurse or other home services: No Alcohol intake: current Alcohol intake frequency: does not drink Comment: counts correct Patient Tobacco Use Status: Former Tobacco user Tobacco use type: Cigarette Years Smoked: 11 e-Cigarette/Vaping Use: Never Used Second Hand Smoke Exposure: Yes Advance Directives Date on File: 07/31/22 service: No Current occupational status: employed 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 Current occupational exposures/hazards: No Cognitive needs: No Hearing needs: No Vision needs: No Physical Exam ED Vital Signs: Vital Signs - 24 hr 07/26/24 14:58 07/26/24 18:01 07/26/24 18:02 Temperature 97.1 F 98.2 F 97.1 F Pulse Rate 81 68 81 Respiratory Rate 18 14 18 Blood Pressure 135/80 143/79 H 135/80 Pulse Oximetry 98 98 Oxygen Delivery Method Room Air Room Air BMI result Body Mass Index 33.0 Const General: cooperative, healthy appearing and no acute distress Orientation/consciousness: patient oriented x3 Limitations: no limitations HENMT Head: Yes normal to inspection and Yes atraumatic Ears: hearing grossly normal bilaterally General nose exam: Normal external nose present Face and sinus: Yes normal facial exam Eyes General: appearance normal, both eyes and all related structures EOM: EOMs intact bilaterally Neck Neck: Yes normal visual inspection and Yes no meningeal signs Resp Effort & Inspection: normal respiratory effort and no respiratory distress Auscultation: clear to auscultation bilaterally Cardio Rate: regular rate Heart sounds: S1 normal heart sound present and S2 normal heart sound present GI Inspection: Yes normal to inspection Palpation (GI): Soft to palpation, Tenderness to palpation present (GI) in the LLQ; with no rebound tenderness, no guarding and not rigid General: Yes no CVA tenderness Back/Spine/Pelvis Back: no CVA tenderness Skin Other: + erythematous nonblanching rash noted to LLE. +excoriations. No open lesion or drainage, no lymphangitis or warmth Wounds: no wounds Neuro General: patient oriented x3, tone normal and no meningeal signs Cranial nerves: Yes CN's II-XII intact bilaterally Gait exam (Neuro): Normal gait present Extrem General: Yes normal to inspection Course Course Course Narrative: This is a Rapid Medical Exam performed in triage by Marisa Maurice PA-C. Full HPI, ROS and PE to be performed by primary ED provider. 48-year-old female with a past medical history of migraines, AUB, HTN, CKD, asthma, hypothyroid presenting to the ED c/o L flank pain x3 days. denies urinary sx, N/V. Also reports rash to L ankle x this AM. Denies new exposures PE: abd soft, nontender, No CVAT. +erythematous rash to LLE - nonblanching Plan: Labs, UA -1629-- WBC count 11.7. Creatinine 1.46 > slightly more elevated than priors >> will give IVF -UA contaminated. Not infected. 1742--CT abdomen pelvis wo IV con IMPRESSION: 1. Distal descending colon epiploic appendagitis. No evidence of abscess or free intraperitoneal air 2. No evidence of renal obstruction. No renal or ureteral calculus. > patient reports mild symptomatic improvement in the ED. Results discussed with patient including worrisome signs and symptoms and strict return precautions, and when to return to the emergency department. They verbalized understanding and feel safe for discharge at this time. Medical Decision Making Medical Decision Making MDM Narrative: 48-year-old female with a past medical history [place], anxiety, depression, GERD, asthma, CKD, hypothyroid, HTN, presenting to the ED complaining of left flank pain x 3 days with associated nausea. On exam vital signs stable, NAD, nontoxic appearing, abdomen is soft with mild LLQ tenderness, no rebound or guarding, no CVAT. Concern for renal stone vs pyelo/UTI vs MSK pain/strain vs diverticulitis. Lower suspicion for appendicitis, cholecystitis/lithiasis. No evidence of SJS/TENs or anaphylaxis Plan: Labs, UA, CT AP, IVF, pain control, re-evaluate Please refer to course for remaining clinical decision making, interpretation of labs/imaging results, and discussions with consultants and/or family members. Differential Diagnosis Differential Diagnoses: The differential diagnosis associated with the presentation includes As above Admission/Observation Consideration of admission/observation: Escalation of care including admission/observation considered Lab Data [facility] Lab Attestation statement: I reviewed the patient's lab results. 07/26/24 15:20 07/26/24 15:20 Labs: Lab Results 07/26/24 Range/Units 15:20 WBC 11.7 H (4.8-10.8) X10*3/uL RBC 4.94 (4.20-5.50) X10*6/uL Hgb 13.8 (12.0-16.0) g/dl Hct 40.5 (37.0-47.0) % MCV 82.0 (80.0-98.0) fL MCH 27.9 (27.0-33.0) pg MCHC 34.1 (31.0-35.0) g/dl RDW 13.6 (11.0-16.0) % Plt Count 357 (160-400) X10*3/uL MPV 10.6 (9.4-12.3) fL Immature Gran % (Auto) 0.3 (0.0-0.4) % Neut % (Auto) 68.6 (45-73) % Lymph % (Auto) 24.6 (20-40) % Sutter % (Auto) 5.8 (2-11) % Eos % (Auto) 0.3 (0-4) % Baso % (Auto) 0.4 (0-2) % Lymph # (Auto) 2.9 (1.2-4.9) X10*3/uL Sutter # (Auto) 0.7 (0.1-1.2) X10*3/uL Eos # (Auto) 0.0 (0.0-0.4) X10*3/uL Baso # (Auto) 0.1 (0.0-0.2) X10*3/uL Abs Immat Gran (auto) 0.04 H (0.00-0.03) X10*3/uL Absolute Neuts (auto) 8.0 (2.0-8.3) x10*3/uL Absolute Nucleated RBC 0.000 (0.0-0.012) X10*3/uL Nucleated RBC % (auto) 0.0 (0.0-0.2) /100WBC Sodium 139 (135-145) mmol/L Potassium 3.8 (3.3-5.1) mmol/L Chloride 104 (96-108) mmol/L Carbon Dioxide 27 (22-29) mmol/L Anion Gap 12 (12-20) BUN 15 (9-16) mg/dL Creatinine 1.46 H (0.5-1.4) mg/dL Estim Creat Clear Calc 49.2 Estimated GFR 38 Random Glucose 107 (60-115) mg/dL Calcium 9.6 (8.4-10.2) mg/dL Magnesium 2.2 (1.6-2.6) mg/dL Total Bilirubin 0.4 (0.0-1.0) mg/dL Direct Bilirubin 0.1 (0.0-0.5) mg/dL AST 28 (5-31) U/L ALT 32 H (0-31) U/L Alkaline Phosphatase 94 (39-117) U/L Total Protein 7.7 (6.5-8.0) g/dL Albumin 4.6 (3.5-5.0) g/dL Lipase 21 (8-78) U/L Urine Color Yellow Urine Appearance Cloudy Urine pH 6.5 (5.0-9.0) Ur Specific [place] 1.025 (1.005-1.025) Urine Protein 300 (3+) H (Neg-Trace) mg/dL Urine Glucose (UA) Negative (Negative) mg/dL Urine Ketones Trace (Negative) mg/dL Urine Blood Negative (Negative) Urine Nitrite Negative (Negative) Ur Leukocyte Esterase Trace H (Negative) Urine RBC 0-2 (0-2) /HPF Urine WBC 6-10 (0-5) /HPF Ur Squamous Epith Cells 11-20 (0-2) /HPF Urine Bacteria 2+ (None Seen) Hyaline Casts 0-2 (0-2) /LPF Urine Test NEGATIVE (NEGATIVE) Independent Interpretation I performed an independent interpretation of an: CT Scan Radiology Impression Discussion of test interpretation with radiology: I have reviewed the radiologist's reading. External Record Review External record reviewed: Inpatient record, Office record, Outpatient record, Prior outpatient labs, Prior outpatient radiology, Primary care record and Outside ED record Tests considered The following testing was considered but not selected: As above Prescription Management I considered prescription management with: Pain Medication and Other Chronic Conditions Patient?s care impacted by: Hypertension and Other (CKD) Social Determinants Patient?s care significantly limited by Social Determinants of Health including: Other Social Determinant of Health Medications Administered Discontinued Medications Generic Name Dose Route Start Last Admin Trade Name Freq PRN Reason Stop Dose Admin Sodium Chloride 1,000 mls @ 999 mls/hr 07/26/24 16:30 07/26/24 18:02 Ns IV 07/26/24 17:30 Infused .Q1H1M ROGE Infusion Acetaminophen 1,000 mg in 100 mls @ 400 mls/hr 07/26/24 16:26 07/26/24 17:07 Ofirmev IV 07/26/24 16:40 Infused ONCE ONE Infusion Ondansetron HCl 4 mg 07/26/24 16:26 07/26/24 16:39 Ondansetron Hcl 4 Mg/2 Ml Vial IVPUSH 07/26/24 16:27 4 mg ONCE ONE Administration Discharge Plan Discharge Clinical Impression: Epiploic appendagitis Patient Disposition: Home, Self-Care Additional Instructions: Your CAT scan shows epiploic appendagitis Your blood work is otherwise reassuring It is very important for you to stay hydrated at home, drink plenty of fluids If her pain persists or worsens/becomes unbearable, you have persistent nausea, vomiting, diarrhea, you are unable to eat or drink return to the ED Prescriptions: New acetaminophen [Tylenol Extra Strength] 500 mg tablet 500 mg PO Q6H PRN (Reason: fever or pain) Qty: 14 0RF ibuprofen 600 mg tablet 600 mg PO Q8H PRN (Reason: fever or pain) Qty: 14 0RF hydrocortisone [Anti-Itch (HC)] 1 % cream 1 appl topical BID PRN (Reason: rash) Qty: 28.35 0RF No Action tizanidine 2 mg tablet 2 mg PO Q8H 15 Days Qty: 45 3RF albuterol sulfate 90 mcg/actuation HFA aerosol inhaler 1 inh inhalation QID PRN (Reason: Shortness Of Breath Or Wheezing) Qty: 8.5 2RF baclofen 10 mg tablet 10 mg PO TID Qty: 30 0RF losartan 25 mg tablet 25 mg PO DAILY Qty: 30 6RF Saxenda 3 mg/0.5 mL (18 mg/3 mL) pen injector See Rx Instructions subcut .COMPLEX 28 Days Qty: 15 0RF Rx Instructions: inject subcutaneously once daily: week 1 = 0.6 mg; week 2 = 1.2 mg; week 3 = 1.8 mg; week 4 = 2.4 mg; then 3 mg daily subcut sumatriptan succinate 25 mg tablet See Rx Instructions PO .COMPLEX 30 Days Qty: 9 0RF Rx Instructions: take 1 tab at onset of headache; if no relief may repeat 1 tab after at least 2 hrs; max = 4 tabs/24 hr PO levothyroxine 150 mcg tablet 150 mcg PO DAILY Qty: 90 2RF lorazepam 0.5 mg tablet 0.5 mg PO DAILY PRN (Reason: anxiety) 30 Days Qty: 15 1RF oxycodone 5 mg tablet 5 mg PO BID PRN (Reason: pain) 7 Days Qty: 14 0RF Rx Instructions: Partial Fill upon patient request. fluoxetine 20 mg capsule 20 mg PO DAILY 90 Days Qty: 90 1RF amlodipine 10 mg tablet 10 mg PO DAILY 90 Days Qty: 90 1RF varenicline tartrate 1 mg tablet 1 mg PO BID 30 Days Qty: 60 3RF cholecalciferol (vitamin D3) [Vitamin D3] 50 mcg (2,000 unit) Capsule 50 mcg PO DAILY gabapentin 300 mg capsule 300 mg PO BEDTIME Qty: 30 6RF [place] [facility] [place] [facility] [place] Group] - 1 week Donta Bellamy PA-C [Primary Care Provider] - 5 days Stand Alone Forms: Work/School Release Discharge Date/Time: 07/26/24 18:43 Print Language: Arabic
[2024-07-26 15:25] LABS: MANUAL DIFF FLAG NO
[2024-07-26 15:26] LABS: Basophils Absolute Auto 0.1 X10*3/uL (0.0-0.2); Basophils Percent Auto 0.4 % (0-2); Eosinophils Percent Auto 0.3 % (0-4); Hematocrit 40.5 % (37.0-47.0); Hemoglobin 13.8 g/dl (12.0-16.0); Imm Gran Abs Auto 0.04 X10*3/uL (0.00-0.03); Imm Gran Pct Auto 0.3 % (0.0-0.4); Lymphocytes Absolute Auto 2.9 X10*3/uL (1.2-4.9); Lymphocytes Percent Auto 24.6 % (20-40); Mean Corpuscular HGB Conc 34.1 g/dl (31.0-35.0); Mean Corpuscular Hemoglobin 27.9 pg (27.0-33.0); Mean Platelet Volume 10.6 fL (9.4-12.3); Monocytes Absolute Auto 0.7 X10*3/uL (0.1-1.2); Monocytes Percent Auto 5.8 % (2-11); Neutrophils Percent Auto 68.6 % (45-73); Platelet Count 357 X10*3/uL (160-400); Red Blood Count 4.94 X10*6/uL (4.20-5.50); Red Cell Distribution Width 13.6 % (11.0-16.0); White Blood Count 11.7 X10*3/uL (4.8-10.8)
[2024-07-26 15:31] LABS: Appearance Urine Cloudy; Color Urine Yellow; Glucose Urine UA Negative (Negative); Leukocyte Esterase Urine Trace (Negative); Nitrite Urine Negative (Negative); PH 6.5 (5.0-9.0); Specific Gravity - Urine 1.025 (1.005-1.025); UMIC TRIGGER UACC YES; Urine Blood Negative (Negative); Urine Ketones Trace mg/dL (Negative); Urine Protein 300 (3+) mg/dL (Neg-Trace)
[2024-07-26 15:33] LABS: UPreg QC Valid YES; Urine Pregnancy NEGATIVE (NEGATIVE)
[2024-07-26 15:43] LABS: Bacteria Urine 2+ (None Seen); Hyaline Casts Urine 0-2 /LPF (0-2); RBC Urine 0-2 /HPF (0-2); UACC Culture Trigger YES
[2024-07-26 15:46] LABS: Alanine Aminotransferase 32 U/L (0-31); Albumin Level 4.6 g/dL (3.5-5.0); Anion Gap 12 (12-20); Aspartate Amino Transferase 28 U/L (5-31); Bilirubin Direct 0.1 mg/dL (0.0-0.5); Bilirubin Total 0.4 mg/dL (0.0-1.0); Blood Urea Nitrogen 15 mg/dL (9-16); Calcium 9.6 mg/dL (8.4-10.2); Carbon Dioxide 27 mmol/L (22-29); Chloride 104 mmol/L (96-108); Creatinine Clr Calc Pharmacy 49.2; Estimated Glomerular Filt Rate 38; Glucose Random 107 mg/dL (60-115); Magnesium 2.2 mg/dL (1.6-2.6); Potassium 3.8 mmol/L (3.3-5.1); Sodium 139 mmol/L (135-145); Total Protein 7.7 g/dL (6.5-8.0)
--- OUTSIDE RECORDS SUMMARY | 2024-07-26 16:18 | XMS_ITS ---
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 Encounter Location Date Provider Diagnosis [facility] [employer] [address] [place] [address] 04/28/2024 BINA HUANG Plan Of Treatment Next Appt Details Provider Name:BINA Lin, 05/04/2025 08:50:00 AM, [address] [place], [address], [place], [address], Progress Notes * NORMA HEADDOB:1975 (48 yo F)Acc No.[id number]:04/28/2024 PROGRESS NOTES Patient:?NORMA HEAD Provider:LILIANA HUANG MD :1975???Age:48 Y???Sex:Female D ate:04/28/2024 Address:[address] [place] [address] Pcp:GRABIEL EDWARDS Subjective: * Chief Complaints: * ???1. 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 * Medical History:? Objective: * Vitals:? Assessment: Plan: * Treatment: * Images: Billing Information: * Visit Code:? * Procedure Codes:? * Electronic signature of BINA HUANG MD on 07/26/2024 at 04:17 PM EDT Sign off status: Pending * Provider:?BINA HUANG MD Date:?2024 Generated for Marcelo sampson/Sandra/Yosef on:?07/26/2024 04:17 PM EDT
--- OUTSIDE RECORDS SUMMARY | 2024-07-26 16:18 | XMS_ITS | Patient Health Record ---
Author Organization [facility] Address [address] [place] [address] Care Team Providers Care Boots And Shoes Supervisor Name Role Phone DHAVAL TORREZ Primary Care Provider BINA Aleman Unavailable [phone] Allergies Allergen (clinical drug ingredient) Drug/Non Drug Allergy documented on EMR Reaction Allergy Type Onset Date Status lisinopril Lisinopril Cough Drug Allergy Activ e Results Component Value Reference Range Notes [id number] IGP No Culture 30 Plus Reviewed date:05/12/2024 11:59:05 AM Interpretation: Performing Lab:[facility] [place], Denise Swetha Casas, [address], [place], Phone - [phone], Director - [facility] Notes/Report: Clinical Information:VAG/CERV [id number] LMP / Prev Treat...[id number] Dates / Results....04/23/23 No. of containers..01 ThinPrep Vial DIAGNOSIS: NEGATIVE FOR INTRAEPITHELIAL LESION OR MALIGNANCY. PREDOMINANCE OF COCCOBACILLI CONSISTENT WITH SHIFT IN VAGINAL ALICE IS PRESENT. Specimen adequacy: Satisfactory for evaluation. Endocervical and/or squamous metaplastic cells (endocervical component) are present. Areas of partially obscuring inflammatory exudate are present. Clinician provided ICD10: Z0 1.419 Performed by: Chaka Tomlin , [employer] (ASCP) . . Note: The Pap smear [...] Denise Casas, [address], [place], Phone - [phone], Director - [facility] Notes/Report: Clinical Information:VAG/CERV [id number] LMP / Prev Treat...[id number] Dates / Results....04/23/23 No. of containers..01 ThinPrep [...] test positive, high risk on vaginal specimen (981530870992929) Cervical high risk human papillomavirus (HPV) DNA test positive (R87.810) Active confirmed Problem Essential hypertension (86138207) Essential (primary) hypertension (I10) Active confirmed Problem Hypothyroidism (11577661) Hypothyroidism, unspecified (E03.9) Active confirmed Problem Anxiety disorder (945115325) Anxiety disorder, unspecified (F41.9) Active confirmed Problem Intrauterine contraceptive device in situ (finding) (965909082) Presence of (intrauterine) contraceptive device (Z97.5) Active confirmed Problem Endometriosis (256012546) Endometriosis, unspecified (N80.9) Active confirmed Problem COVID-19 (224651665) COVID-19 (U07.1) Active confirmed Problem Chronic kidney disease stage 3 (disorder) (967005362) Chronic kidney disease, stage 3 unspecified (N18.30) Active confirmed Vital Signs Temperature 98.0 degrees Fahrenheit 05/04/2024 Blood pressure diastolic 78 mm Hg 05/04/2024 Height 66 in 05/04/2024 Blood pressure systolic 136 mm Hg 05/04/2024 Weight 190 lbs 05/04/2024 BMI 30.66 kg/m2 05/04/2024 Encounters Encounter Location Date Provider Diagnosis [address] [address] 05/04/2024 BINA HUANG Encounter for gynecological examination [...] Provider Name:BINA Lin, 05/04/2025 08:50:00 AM, [address], [address], [place], [address], Insurance Providers Payer Name Payer Address Payer Phone Subscriber Number Group Number Insured Name Patient Relationship to Insured Coverage Start Date Coverage End Date [employer] [address] [place] [address] [id number] NORMA HEAD Self - patient is the [...]
--- OUTSIDE RECORDS SUMMARY | 2024-07-26 16:18 | XMS_ITS | Clinical Summary ---
Author Organization [facility] Address [address] [place] [address] Care Team Providers Care Screen Machine Operator Name Role Phone Donta Bellamy Primary Care Provider [phone] Allergies Active Allergy Reactions Criticality Noted Date [...] Last Done Comments Breast Cancer Screening 1975 Hepatitis B Vaccine (1 of 3 - 19+ 3-dose series) 10/22 Pneumococcal Vaccine: 50+ Years (1 of 2 - PCV) 993 Colorectal Cancer Screening: Annual FOBT 2022 Colorectal Cancer Screening: Colonoscopy 2022 Colorectal Cancer Screening: Sigmoidoscopy 2022 Influenza Vaccine (Season Ended) 2024 Insurance Cigna Cigna Care Teams Screen Machine Operator Relationship Specialty Start Date End Date Donta Bellamy PA [address] [place] [address], [address] [place] [address] PCP - General Physician Tank Cleaning Supervisor 01/20/22
--- OUTSIDE RECORDS SUMMARY | 2024-07-26 16:18 | XMS_ITS | Clinical Summary ---
Author Organization [facility] Address [address] [place] [address] Care Team Providers Care Inside Sales Associate Name Role Phone Unavailable Primary Care Provider [...] - 2023-2 5 season) 2023 Influenza Vaccine (Season Ended) 2024 HIB Vaccines Aged Out No longer eligi [...] age to complete this topic Meningococcal B Vaccine Aged Out No l onger eligible based on patient's age to complete [...]
[2024-07-26 16:21] LABS: Alkaline Phosphatase 94 U/L (39-117)
[2024-07-26] MEDS: ondansetron HCL 4 MG/2 ML VIAL IVPUSH (16:39)
[2024-07-26] MEDS: Acetaminophen 1,000 MG/100 ML PIGGYBACK 400 MG IV (16:39)
[2024-07-26] MEDS: 0.9 % Sodium Chloride 1,000 ML 999 ML IV (16:40)
[2024-07-26 17:03] LABS: Lipase 21 U/L (8-78)
[2024-07-26 18:01] VITALS: BP 143/79; PULSE 68; RESP 14; TEMP 36.8; O2SAT 98
[2024-07-26 18:02] VITALS: BP 135/80; PULSE 81; RESP 18; TEMP 36.2
== END 2024-07-26 18:43 | disposition home or self-care (01) ==
PROVIDERS: Physician Assistant; Emergency Provider Emergency Medicine; PCP Physician Assistant
DX: N23 Unspecified renal colic (principal); R21 Rash and other nonspecific skin eruption; R11.0 Nausea; R35.0 Frequency of micturition; Z87.891 Personal history of nicotine dependence; Z79.899 Other long term (current) drug therapy
CPT/HCPCS: 36415; 74176; 80048; 80076; 81001; 81025; 83690; 83735; 85025; 87086; 96361; 96365; 96375; 99284; J0131; J2405

== ENCOUNTER → 2024-07-26 16:22 | Outpatient (BNV) | payer OTHER, SELFPAY | PROVIDERS: Emergency Provider Emergency Medicine; PCP Physician Assistant; Visit Provider Radiology Diagnostic Radiology | DX: M79.89 Other specified soft tissue disorders (principal) | CPT/HCPCS: 74176 ==

== ENCOUNTER 2024-07-27 14:48 | Outpatient (AMB) | payer OTHER, SELFPAY ==
--- OUTSIDE RECORDS SUMMARY | 2024-07-27 14:50 | XMS_ITS ---
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 * Medical History:? Objective: * Vitals:? Assessment: Plan: * Treatment: * Images: Billing Information: * Visit Code:? * Procedure Codes:? * Electronic signature of BINA HUANG MD on 07/27/2024 at 02:50 PM EDT Sign off status: Pending * Provider:?BINA HUANG MD Date:?2024 Generated for Marcelo sampson/Sandra/Yosef on:?07/27/2024 02:50 PM EDT
[2024-07-27 15:01] VITALS: BP 136/82; PULSE 72; TEMP 36.2; O2SAT 97; BMI 32.5
--- NOTE | 2024-07-27 15:01 | MHC.PC.OV ---
Vital Signs 07/27/24 15:01 Height 5 ft 4 in Weight 189 lb 4 oz BMI 32.5 BP 136/82 Blood Pressure Location Lt brachial Position Sitting Pulse 72 Pulse Source Pulse Oximeter Temp 97.1 F Temp Source Temporal Artery Scan Pulse Oximetry (%) 97 Oxygen Delivery Method Room Air Intake Visit Reasons: Epiploic appendagitis-general surgeon referral Pharmacy Scheduler Required: No Accompanied by: Self / Same As Patient Allergies lisinopril [LISINOPRIL] Allergy (Mild, Verified 07/27/24 15:03) COUGHING bupropion [From Wellbutrin] Adverse Reaction (Intermediate, Verified 07/27/24 15:03) Depression duloxetine [From Cymbalta] Adverse Reaction (Intermediate, Verified 07/27/24 15:03) increased depression ibuprofen [From Motrin] Adverse Reaction (Mild, Verified 07/27/24 15:03) Unknown Tobacco use date assessed: 07/27/24 Dental Screening Dental Screen Date: 07/27/24 Did you have a dental visit in the last 12 months?: Yes Did you have a dental problem in the last 6 months where you did not have access to dental care?: No Was dental information given to patient?: Patient has dentist HPI Epiploic appendagitis-general surgeon referral HPI Details Patient is a 48-year-old female here today for an ER follow-up visit. Patient presenting with concerns of a rash and epiglottic appendagitis. The rash on her left side appeared suddenly without an apparent cause and was suspected as contact dermatitis. The patient denied any changes in soaps or detergents. For epiglottic appendagitis, she experienced localized pain for three days before seeking care, with symptoms alleviating through pain management. She notes persistent back pain impacting her functional ability, compounded by depressive symptoms, and previously managed with medications restricted by renal status. Her healthcare constraints were discussed in light of her work environment and daily life challenges. [facility] Medical History Periodic limb movement disorder Obstructive sleep apnea hypopnea, moderate Cervical radiculopathy, acute Back pain Sleep apnea Bronchitis Cognitive change Hx of transfusion of packed red blood cells Anxiety Depression Personal history of COVID-19 History of lumbar puncture Tobacco dependence Spinal stenosis in cervical region Abnormal finding on MRI of brain Hypersomnia Numbness and tingling in both hands Fatty liver IgA nephropathy Migraine GERD (gastroesophageal reflux disease) Obesity (BMI 30-39.9) Asthma Vitamin D deficiency delivery delivered Multiple sclerosis CKD (chronic kidney disease) Hypothyroid HTN (hypertension) Surgical History H/O laminectomy History of cervical spinal surgery History of lumbar surgery Status post biopsy of kidney History of Cervical disc disease Tubal ligation status Family History Mother Mental health disorder Lung cancer Father Prostate cancer Heart attack, Onset Age: 80 Social History Housing: Apartment Are you a primary patient care representative to a significant other at home: No Do you presently have visiting nurse or other home services: No Alcohol intake: current Alcohol intake frequency: does not drink Comment: counts correct Patient Tobacco Use Status: Former Tobacco user Tobacco use type: Cigarette Years Smoked: 11 e-Cigarette/Vaping Use: Never Used Second Hand Smoke Exposure: Yes Advance Directives Date on File: 07/31/22 service: No Current occupational status: employed 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 Current occupational exposures/hazards: No Cognitive needs: No Hearing needs: No Vision needs: No Female Reproductive History Menstrual Age of Menarche: 10 Questionnaire PHQ-9 Over the last 2 weeks, how often have you been bothered by any of the following problems? 1. Little interest or pleasure in doing things: nearly every day 2. Feeling down, depressed, or hopeless: more than half the days 3. Trouble falling or staying asleep, or sleeping too much: more than half the days 4. Feeling tired or having little energy: more than half the days 5. Poor appetite or overeating: more than half the days 6. Feeling bad about yourself - or that you are a failure or have let yourself or your family down: more than half the days 7. Trouble concentrating on things, such as reading the newspaper or watching television: not at all 8. Moving or speaking so slowly that other people could have noticed. Or the opposite - being so fidgety or restless that you have been moving around a lot more than usual: not at all 9. Thoughts that you would be better off or of hurting yourself in some way: not at all Total score: 13 Depression Screening Interpretation: Positive Depression Screening Follow-up: Existing condition Depression Screening Done: Yes 23639 - PHQ-9 Billing: Yes Source: Developed by Drs. Jose Martin, Candelaria Brown, Milton Mack and colleagues, with an educational lauren from [employer]. Thrive Questionnaire Date Thrive assessed: 07/27/24 I am a: Patient What is your living situation today?: I have a steady place to live Within the past 12 months, did the food you bought not last and you didn't have the money to get more?: Never true Within the past 12 months, did you worry whether your food would run out before you got money to buy more?: Never true Do you have trouble paying for medicines?: No Do you have trouble getting transportation to medical appointments?: No Do you have trouble paying your heating and electricity bill?: No Do you have trouble taking care of your child, family member or friend?: No Do you have trouble with day-to-day activities such as bathing, preparing meals, shopping, managing finances, etc.?: No Are you currently unemployed and looking for a job?: No Are you interested in more education?: No Please select the resources that you would like help with: None Currently or been in a relationship where the following occur: I choose not to answer THRIVE Score: 0 AUDIT C Alcohol Use Questionnaire (AUDIT-C) 1. How often do you have a drink containing alcohol?: Monthly or less 2. How many drinks containing alcohol do you have on a typical day when you are drinking?: 1 or 2 3. How often do you have six or more drinks on one occasion?: Less than monthly Total Score: 2 JASPER-7 AMB Questionnaire JASPER-7 Date JASPER - 7 assessed: 07/27/24 Feeling nervous, anxious, or on edge: 2 = More than half the days Not being able to stop or control worryin = More than half the days Worrying too much about different things: 2 = More than half the days Trouble relaxin = Several days Being so restless that it is hard to sit still: 1 = Several days Becoming easily annoyed or irritable: 2 = More than half the days Feeling afraid as if something awful might happen: 1 = Several days Total JASPER-7 score (0-4 normal; 5-9 mild; 10-14 moderate; 15-21 severe): 11 Source: Developed by Drs. Jose Martin, Candelaria Brown, Milton Mack and colleagues, with an educational lauren from [employer]. JASPER-7 Assessment Billing JASPER-7 Assessment Tool: JASPER-7 Assessment 54298 Review of Systems Const Denies headache(s) Eyes Denies loss of vision ENT Denies vertigo, Denies dizziness, Denies headache(s) and Denies sore throat Card Denies chest pain, Denies leg edema and Denies lightheadedness Resp Denies cough, Denies hemoptysis and Denies wheezing GI Denies abdominal pain, Denies melena, Denies constipation, Denies diarrhea and Denies vomiting Denies urinary frequency, Denies dysuria and Denies urinary urgency Musc Denies arthralgias, Denies joint swelling, Denies numbness and Denies tingling Neuro Denies Abnormal speech present, Denies behavioral changes, Denies vertigo, Denies dizziness, Denies headache(s), Denies loss of vision, Denies memory loss, Denies numbness and Denies tingling Psych Denies anxiety, Denies behavioral changes, Denies depression, Denies memory loss and Denies panic attacks Mark/Lymph Denies easy bleeding and Denies easy bruising Aller/Immun Denies wheezing Physical exam (Primary Care) Vital Signs: Last Vital Signs Temp 97.1 F 07/27/24 15:01 Pulse 72 07/27/24 15:01 BP 136/82 07/27/24 15:01 Pulse Ox 97 07/27/24 15:01 Oxygen Delivery Method Room Air 07/27/24 15:01 BMI result Body Mass Index 32.5 Tobacco/Smoking Status: Tobacco use Status Tobacco use date assessed 07/27/24 07/27/24 15:04 Patient Tobacco Use Status Former Tobacco user 07/27/24 15:04 Tobacco use type Cigarette 07/27/24 15:04 e-Cigarette/Vaping Use Never Used 07/27/24 15:04 PHQ-9: PHQ-9 Score PHQ-9: Total score 13 07/27/24 15:29 Depression Screening Interpretation: Positive Depression Screening Follow-up: Existing condition Thrive Assessment: Date of Thrive Assessment Date Thrive assessed 07/27/24 07/27/24 15:04 Currently or been in a relationship where the following occur: I choose not to answer Const General: healthy appearing, no acute distress, alert and awake Nutritional Appearance: well nourished Orientation/consciousness: oriented to person, oriented to place and oriented to time HENMT Ears: TM's normal bilaterally General nose exam: Normal nasal mucous membranes and turbinates present Eyes Conjunctivae: conjunctivae normal Sclerae: sclerae normal Pupils: Equal, round and reactive pupils present Neck Neck: Yes no lymphadenopathy and Yes no JVD Thyroid: Thyroid normal Carotids: no bruits Resp Effort & Inspection: normal respiratory effort and not tachypneic Auscultation: no crackles, no rales, no rhonchi and no wheezes Cardio Rate: regular rate Rhythm: regular rhythm Heart sounds: no murmurs and normal S1 and S2 GI Palpation (GI): Soft to palpation, nontender, no hepatomegaly and no splenomegaly Auscultation: normal bowel sounds Skin General skin exam: no rashes or lesions noted and dry skin Neuro General: oriented to person, oriented to place and oriented to time Cranial nerves: Yes Equal, round and reactive pupils present Speech: No Abnormal speech present Gait exam (Neuro): Normal gait present Motor exam (neuro): no tremor noted Extrem Right upper extremity: full ROM Left upper extremity: full ROM Right lower extremity: full ROM; no edema Left lower extremity: full ROM; no edema Psych Mental Status: mental status grossly normal Speech and movement: Normal speech and movement present Affect: normal affect Attitude: cooperative Thought process: Normal thought process present Coding Level of Care Code Est Pt Level 3 (14904) Diagnoses Epiploic appendagitis K63.89 Additional Codes JASPER-7 Assessment Billing - JASPER-7 Assessment Tool: JASPER-7 Assessment 48896 ([id number]) PHQ-9 - 83605 - PHQ-9 Billing: Yes ([id number]) Assessment & Plan Assessment & Plan (1) Epiploic appendagitis: Code(s): K63.89 - Other specified diseases of intestine Category: Medical Plan: Management focuses on conservative measures with observation, addressing symptoms without immediate intervention, and considering surgical review if indicated later. Orders: Referrals General Surgery Referral K63.89 - Other specified diseases of intestine Medications: Refilled oxycodone Partial Fill upon patient request. 5 mg PO BID PRN 14 tabs 0RF pain 7 days M54.16 - Radiculopathy, lumbar region
== END 2024-07-27 15:47 | disposition home or self-care (01) ==
LOC: HO.HMCH 14:49
PROVIDERS: PCP Physician Assistant; Visit Provider Physician Assistant
DX: K63.89 Other specified diseases of intestine (principal)

== ENCOUNTER → 2024-07-27 14:48 | Outpatient (BNVA) | payer OTHER, SELFPAY | PROVIDERS: PCP Physician Assistant; Visit Provider Physician Assistant | DX: K63.89 Other specified diseases of intestine (principal); M54.16 Radiculopathy, lumbar region; Z13.30 Encounter for screening examination for mental health and behavioral disorders, unspecified | CPT/HCPCS: 96127 ==

== ENCOUNTER 2024-08-15 10:16 | Outpatient (AMB) | payer OTHER, SELFPAY ==
[2024-08-15 10:19] VITALS: BP 134/82; PULSE 92; TEMP 36.3; O2SAT 96; BMI 32.4
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
== END 2024-08-15 11:17 | disposition home or self-care (01) ==
LOC: HO.HMCH 10:17
PROVIDERS: PCP Physician Assistant; Visit Provider Physician Assistant
DX: F33.1 Major depressive disorder, recurrent, moderate (principal); M48.061 Spinal stenosis, lumbar region without neurogenic claudication; M54.16 Radiculopathy, lumbar region

== ENCOUNTER → 2024-08-15 10:16 | Outpatient (BNVA) | payer OTHER, SELFPAY | PROVIDERS: PCP Physician Assistant; Visit Provider Physician Assistant ==

== ENCOUNTER 2024-08-30 18:47 | Outpatient (REF) | payer OTHER, SELFPAY ==
--- OUTSIDE RECORDS SUMMARY | 2024-04-28 05:30 | XMS_ITS ---
Author Organization [facility] [employer] Address [address] [place] [address] Care Team Providers Care Laminating Machine Tender Name Role Phone DHAVAL TORREZ Primary Care Provider BINA Aleman Unavailable [phone] REASON FOR VISIT Annual RHINESTONE SETTER Physical Encounters Encounter Location Date Provider Diagnosis [facility] [employer] [address] [place] [address] 04/28/2024 BINA HUANG Plan Of Treatment Next Appt Details Provider Name:BINAIngrid Lin, 05/04/2025 08:50:00 AM, [address], [address], [place], [address], Progress Notes * NORMA HEADDOB:1975 (48 yo F)Acc No.[id number]:04/28/2024 PROGRESS NOTES Patient: Riley SORIA NORMA Provider: Rudy HUANG MD :1975 A ge:48 Y S ex:Female Date:04/28/2024 Address:[address] [place], [place] [id number] Pcp:GRABIEL EDWARDS Subjective: * Chief Complaints: * 1 . Annual RHINESTONE SETTER Physical. * Medical History: Objective: * Vitals: Assessment: Plan: * Treatment: * Images: Billing Information: * Visit Code: * Procedure Codes: * Electronic signature of BINA HUANG MD on 08/30/2024 at 07:01 PM EDT Sign off status: Pending * Provider: Rudy HUANG MD Date: 0 04/28/2024 Generated for Marcelo sampson/Sandra/Yosef on: 0 08/30/2024 07:01 PM EDT
--- NOTE | ~2024-08-30 | MR_ITS ---
Workstation: [id number] EXAMINATION: MR LUMBAR SPINE WITHOUT THEN WITH IV CONTRAST History: M48.061 - Spinal stenosis, lumbar region without neurogenic claudication Technique: Sagittal T1, T2 and STIR, and axial T1 and T2 weighted images of the lumbar spine were obtained per departmental protocol. Subsequently, sagittal and axial fat-suppressed T1-weighted images were obtained after the intravenous administration of 8.5 mm Gadavist. Comparison: Comparison is made with the prior examination dated 03/15/2023. Findings: The vertebral bodies maintain normal height, alignment, and marrow signal intensity. Again seen is mild to moderate disc desiccation and loss of disc height at L5-S1 and mild loss of height at L4-5. At T12-L1,there is no evidence of disc herniation, central spinal stenosis, or neural foraminal narrowing. At L1-2, there is no evidence of disc herniation, central spinal stenosis, or neural foraminal narrowing. At L2-3, there is a mild disc bulge. There is facet and ligamentum flavum hypertrophy without central spinal or neural foraminal stenosis. At L3-4, there is a mild disc bulge. There is moderate facet and ligamentum flavum hypertrophy causing mild central spinal stenosis. The neural foramen are patent. At L4-5, there are postsurgical changes on the right. There is a diffuse moderate disc bulge. There is moderate facet osteoarthritis causing moderate central spinal stenosis and narrowing of the inferior recesses of the bilateral neural foramen. There is edema and enhancement of the facet joints with facet arthropathy. At L5-S1, there is a moderate disc bulge. There is facet osteoarthritis causing narrowing of the bilateral neural foramen. There is no significant central spinal stenosis. Postcontrast images demonstrate enhancement about the L4-5 facet joints consistent with facet arthropathy. No additional abnormal contrast enhancement is seen. The conus terminates at the L1 level and demonstrates normal signal intensity. The visualized paraspinal soft tissues are unremarkable. MR/MR lumbar spine wo/w con Impression: 1. Degenerative disc disease at L4-5 and L5-S1. 2. Mild disc bulge at L3-4. Associated facet and ligamentum flavum hypertrophy causes mild central spinal stenosis. 3. Postsurgical changes on the right at L4-5. A moderate disc bulge and bilateral facet arthropathy causes moderate central spinal stenosis and narrowing of the inferior recesses of the bilateral neural foramen. 4. Moderate disc bulge at L5-S1. Associated facet osteoarthritis causes bilateral neural foraminal stenosis. Electronically signed by: Jose Bailey MD 08/31/2024 07:37 AM EDT
[2024-08-30] MEDS: gadobutroL 10 ML VIAL IVPUSH (19:33)
== END 2024-08-30 18:48 | disposition home or self-care (01) ==
LOC: HO.MRI 18:47
PROVIDERS: PCP Physician Assistant; Visit Provider Physician Assistant
DX: M48.061 Spinal stenosis, lumbar region without neurogenic claudication (principal); M54.16 Radiculopathy, lumbar region
CPT/HCPCS: 72158; A9585

== ENCOUNTER → 2024-08-30 18:47 | Outpatient (BNV) | payer OTHER, SELFPAY | PROVIDERS: PCP Physician Assistant; Visit Provider Radiology Diagnostic Radiology | DX: M47.817 Spondylosis without myelopathy or radiculopathy, lumbosacral region (principal); M51.369 Other intervertebral disc degeneration, lumbar region without mention of lumbar back pain or lower extremity pain; M48.061 Spinal stenosis, lumbar region without neurogenic claudication | CPT/HCPCS: 72158 ==

== ENCOUNTER 2024-09-01 10:44 | Outpatient (AMB) | payer OTHER, SELFPAY ==
--- OUTSIDE RECORDS SUMMARY | 2024-04-28 05:30 | XMS_ITS ---
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 Physical Encounters Encounter Location Date Provider Diagnosis [facility] [employer] [address] [place] [address] 04/28/2024 BINA HUANG Plan Of Treatment Next Appt Details Provider Name:BINAIngrid Lin, 05/04/2025 08:50:00 AM, [address] [facility], [address], [place], [address], Progress Notes * NORMA HEADDOB:1975 (48 yo F)Acc No.[id number]:04/28/2024 PROGRESS NOTES Patient: Riley SORIA NORMA Provider: Rudy HUANG MD :1975 A ge:48 Y S ex:Female Date:04/28/2024 Address:[address] [place], [place] [id number] Pcp:GRABIEL EDWARDS Subjective: * Chief Complaints: * 1 . 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 * Medical History: Objective: * Vitals: Assessment: Plan: * Treatment: * Images: Billing Information: * Visit Code: * Procedure Codes: * Electronic signature of BINA HUANG MD on 09/01/2024 at 11:45 AM EDT Sign off status: Pending * Provider: Rudy HUANG MD Date: 0 04/28/2024 Generated for Marcelo sampson/Sandra/Yosef on: 0 09/01/2024 11:45 AM EDT
--- NOTE | 2024-09-01 10:47 | A.OFFVIS_ITS ---
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 Required: No Allergies lisinopril (LISINOPRIL) Allergy (Mild, Verified 09/01/24 10:50) COUGHING bupropion (From Wellbutrin) Adverse Reaction (Intermediate, Verified 09/01/24 10:50) Depression duloxetine (From Cymbalta) Adverse Reaction (Intermediate, Verified 09/01/24 10:50) increased depression ibuprofen (From Motrin) Adverse Reaction (Mild, Verified 09/01/24 10:50) Unknown Medication List - Last Reconciled 09/01/24 by Lydia Johnson LPN acetaminophen (Tylenol Extra Strength) 500 mg PO Q6H PRN albuterol sulfate 90 mcg/actuation 1 inh inhalation QID PRN amlodipine 10 mg PO DAILY 90 days baclofen 10 mg PO TID cholecalciferol (vitamin D3) (Vitamin D3) 50 mcg PO DAILY fluoxetine 20 mg PO DAILY 90 days gabapentin 300 mg PO BEDTIME hydrocortisone 1% (Anti-Itch (hydrocortisone)) 1 appl topical BID PRN levothyroxine 150 mcg PO DAILY lorazepam 0.5 mg PO DAILY PRN 30 days oxycodone 5 mg PO BID PRN 7 days sumatriptan succinate take 1 tab at onset of headache; if no relief may repeat 1 tab after at least 2 hrs; max = 4 tabs/24 hr PO 30 days tizanidine 2 mg PO Q8H 15 days varenicline tartrate 1 mg PO BID 30 days HPI HPI Radiculopathy, lumbar region: Details: History of Present Illness The patient is a 48-year-old female presenting with chronic low back pain. She underwent a redo L4-5 decompression with foraminotomy and facetectomy due to persistent pain. Despite the surgery, she continues to experience pain primarily on the right side of her lower back, occasionally radiating down the leg. A recent MRI showed post-surgical changes at L4-5, moderate disc bulge, and facet arthritis causing mild to moderate spinal stenosis, which is consistent with previous findings. The patient has tried physical therapy and multiple medications, including Tylenol and fluoxetine, but reports limited relief. She cannot take NSAIDs due to chronic kidney disease. She has previously undergone a right L4-5 transforaminal epidural injection, whi ch did not provide relief. Pain Description - Onset: Persistent since surgery - Quality: Aching pain - Location: Primarily right lower back, occasionally radiating to the leg - Exacerbating factors: Forward flexion, right axial rotation - Relieving factors: None noted Physical Exam - Musculoskeletal: Forward flexion reproduces pain, right axial rotation reproduces pain on the right side, extension does not reproduce pain Results - MRI: Post-surgical changes at L4-5, moderate disc bulge, facet arthritis causing mild to moderate spinal stenosis Pain Management - Affect: Pain impacts daily activities and mood - Analgesia: Currently using Tylenol and fluoxetine, with limited relief - Adverse Effects: Cannot take NSAIDs due to chronic kidney disease - Activities of Daily Living: Pain limits physical activities such as walking - Aberrant Drug Related Behaviors: None reported PFSH Medical History Periodic limb movement disorder Obstructive sleep apnea hypopnea, moderate Cervical radiculopathy, acute Back pain Sleep apnea Bronchitis Cognitive change Hx of transfusion of packed red blood cells Anxiety Depression Personal history of COVID-19 History of lumbar puncture Tobacco dependence Spinal stenosis in cervical region Abnormal finding on MRI of brain Hypersomnia Numbness and tingling in both hands Fatty liver IgA nephropathy Migraine GERD (gastroesophageal reflux disease) Obesity (BMI 30-39.9) Asthma Vitamin D deficiency delivery delivered Multiple sclerosis CKD (chronic kidney disease) Hypothyroid HTN (hypertension) Surgical History H/O laminectomy History of cervical spinal surgery History of lumbar surgery Status post biopsy of kidney History of Cervical disc disease Tubal ligation status Family History Mother Mental health disorder Lung cancer Father Prostate cancer Heart attack, Onset Age: 80 Social History Housing: Apartment Are you a primary personal care service provider to a significant other at home: No Do you presently have visiting nurse or other home services: No Alcohol intake: current Alcohol intake frequency: does not drink Comment: counts correct Patient Tobacco Use Status: Former Tobacco user Tobacco use type: Cigarette Years Smoked: 11 e-Cigarette/Vaping Use: Never Used Second Hand Smoke Exposure: Yes Advance Directives Date on File: 07/31/22 service: No Current occupational status: employed 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 Current occupational exposures/hazards: No Cognitive needs: No Hearing needs: No Vision needs: No Female Reproductive History Menstrual Age of Menarche: 10 Physical Exam Vital Signs: Last Vital Signs Pulse 83 09/01/24 10:48 Resp 15 09/01/24 10:48 BP 130/78 09/01/24 10:48 Pulse Ox 97 09/01/24 10:48 Oxygen Delivery Method Room Air 09/01/24 10:48 BMI result Body Mass Index 32.8 Assessment & Plan Assessment & Plan (1) Chronic pain: Code(s): G89.29 - Other chronic pain Category: Medical (2) Post laminectomy syndrome: Code(s): M96.1 - Postlaminectomy syndrome, not elsewhere classified Category: Medical (3) Lumbar radiculopathy: Code(s): M54.16 - Radiculopathy, lumbar region Category: Medical Plan Plan - Plan trial of a temporary nerve stimulator of the right L3 medial branch for chronic pain management, pending insurance authorization, not responsive to surgery, TRISTON, PT, oral meds - If denied, explore alternative pain management options - Continue current medications with monitoring for efficacy and side effects Patient was informed and verbally consented to the use of an ambient scribe for clinic note documentation during this visit. Discussion Notes I discussed with the patient the option of a temporary nerve stimulator to help manage her chronic low back pain, explaining that it is a non-permanent solution that could help mask the pain and reset pain pathways. We also talked about the potential roadblock of insurance authorization and the plan to appeal if necessary. I assured her that if the stimulator is not approved, we will consider other pain management strategies. Patient Instructions - Await insurance authorization for the nerve stimulator trial - Continue current medications as prescribed - Monitor for any changes in pain or side effects from medications - Follow up if there are any new symptoms or concerns Coding Level of Care Code Est Pt Level 3 (80280) Diagnoses Chronic pain G89.29 Post laminectomy syndrome M96.1 Lumbar radiculopathy M54.16
[2024-09-01 10:48] VITALS: BP 130/78; PULSE 83; RESP 15; O2SAT 97; BMI 32.8
== END 2024-09-01 11:40 | disposition home or self-care (01) ==
LOC: HO.PMC 10:45
PROVIDERS: PCP Physician Assistant; Referring Provider Physician Assistant; Visit Provider Internal Medicine
DX: G89.29 Other chronic pain (principal); M96.1 Postlaminectomy syndrome, not elsewhere classified; M54.16 Radiculopathy, lumbar region
CPT/HCPCS: 99213